=== PATIENT | female | born 1935 | race Caucasian/White ===

== ENCOUNTER → 2016-09-15 | Outpatient (REF) | payer MEDICARE, OTHER ==
[~2016-09-15] MED LIST: /DULO30CA OR; /DULO30CA PO; /PANT40TA OR; /SUCR1TA OR; ABIL2TAB PO; METO10TA2 OR; METO5TAB2 OR; TRAZ50TA PO
== END | disposition home or self-care (01) ==
LOC: M SFHCLERA 17:22
PROVIDERS: ATTEND Physician Assistant
DX: R32 Unspecified urinary incontinence (principal)
CPT/HCPCS: 81002; 87086; G0463

== ENCOUNTER → 2017-03-09 | Outpatient (REF) | payer MEDICARE, OTHER ==
[2017-03-09 19:08] LABS: MEAN CORPUSCULAR HEMOGLOBIN 29.2 pg (27.0-33.0); MEAN CORPUSCULAR HGB CONC 33.1 g/dl (32.0-36.5); MEAN CORPUSCULAR VOLUME 88.3 fl (80.0-96.0); RED CELL DISTRIBUTION WIDTH 14.6 % (11.5-14.5); WHITE BLOOD COUNT 7.4 K/mm3 (4.0-10.0)
[2017-03-09 20:47] LABS: ALBUMIN 3.4 GM/DL (3.2-5.2); ALBUMIN/GLOBULIN RATIO 1.31 (1.00-1.93); ALKALINE PHOSPHATASE 75 U/L (45-117); ALT/SGPT 17 U/L (12-78); ANION GAP 10 MEQ/L (8-16); AST/SGOT 10 U/L (15-37); BILIRUBIN,TOTAL 0.4 MG/DL (0.2-1.0); BLOOD UREA NITROGEN 12 MG/DL (7-18); CALCIUM LEVEL 8.5 MG/DL (8.8-10.2); CARBON DIOXIDE LEVEL 25 MEQ/L (21-32); CHLORIDE LEVEL 111 MEQ/L (98-107); CREATININE FOR GFR 0.67 MG/DL (0.55-1.02); GLOMERULAR FILTRATION RATE > 60.0 (>32); GLUCOSE, FASTING 78 MG/DL (83-110); POTASSIUM SERUM 3.8 MEQ/L (3.5-5.1); SODIUM LEVEL 146 MEQ/L (136-145)
== END ==
LOC: M SFHCLERA 15:04
PROVIDERS: ATTEND Family Medicine
DX: R19.7 Diarrhea, unspecified (principal)
CPT/HCPCS: 80053; 85027; G0463

== ENCOUNTER → 2017-03-11 | Outpatient (REF) | payer MEDICARE, OTHER | LOC: M SFHCLERA 11:38 | PROVIDERS: ATTEND Family Medicine | DX: R19.7 Diarrhea, unspecified (principal) ==

== ENCOUNTER → 2017-12-07 | Outpatient (REF) | payer MEDICARE, OTHER ==
[2017-12-07 17:10] LABS: HEMATOCRIT 39.3 % (36.0-47.0); HEMOGLOBIN 12.5 g/dl (12.0-15.5); MEAN CORPUSCULAR HEMOGLOBIN 28.2 pg (27.0-33.0); MEAN CORPUSCULAR HGB CONC 31.8 g/dl (32.0-36.5); MEAN CORPUSCULAR VOLUME 88.7 fl (80.0-96.0); PLATELET COUNT, AUTOMATED 279 10^3/uL (150-450); RED BLOOD COUNT 4.43 10^6/uL (4.00-5.40); RED CELL DISTRIBUTION WIDTH 15.7 % (11.5-14.5)
[2017-12-07 17:49] LABS: TOTAL 25(OH) VITAMIN D 32.1 NG/ML (30.0-100.0)
[2017-12-07 17:52] LABS: ALBUMIN 3.7 GM/DL (3.2-5.2); ALBUMIN/GLOBULIN RATIO 1.12 (1.00-1.93); ALKALINE PHOSPHATASE 71 U/L (45-117); ALT/SGPT 11 U/L (12-78); ANION GAP 7 MEQ/L (8-16); AST/SGOT 9 U/L (7-37); BILIRUBIN,TOTAL 0.5 MG/DL (0.2-1.0); BLOOD UREA NITROGEN 23 MG/DL (7-18); CALCIUM LEVEL 8.8 MG/DL (8.8-10.2); CARBON DIOXIDE LEVEL 27 MEQ/L (21-32); CHLORIDE LEVEL 108 MEQ/L (98-107); CREATININE FOR GFR 0.93 MG/DL (0.55-1.30); GLOMERULAR FILTRATION RATE > 60.0 (>32); GLUCOSE, FASTING 94 MG/DL (70-100); POTASSIUM SERUM 4.5 MEQ/L (3.5-5.1); SODIUM LEVEL 142 MEQ/L (136-145)
== END ==
LOC: M SFHCLERA 14:08
DX: R06.09 Other forms of dyspnea (principal); E55.9 Vitamin D deficiency, unspecified; Z79.899 Other long term (current) drug therapy
CPT/HCPCS: 84443

== ENCOUNTER 2018-01-26 11:10 | Day surgery (SDC) | payer MEDICARE, OTHER ==
[~2018-01-26 11:10] MED LIST changes: -/DULO30CA OR; -/DULO30CA PO; -/PANT40TA OR; -/SUCR1TA OR; -ABIL2TAB PO; +LIDOCAINE 2% INJ 100 MG/5 ML SDV (FOR ANES.) As Ordered; -METO10TA2 OR; -METO5TAB2 OR; +PROPOFOL 200 MG/20 ML VIAL As Ordered; -TRAZ50TA PO
[2018-01-26] MEDS: NS 1,000 ML IV (11:30)
== END 2018-01-26 13:23 | disposition home or self-care (01) ==
LOC: M OPP 11:10
DX: R19.7 Diarrhea, unspecified (principal); K64.0 First degree hemorrhoids; K57.30 Diverticulosis of large intestine without perforation or abscess without bleeding; M19.90 Unspecified osteoarthritis, unspecified site; K44.9 Diaphragmatic hernia without obstruction or gangrene; F41.9 Anxiety disorder, unspecified; F32.9 Major depressive disorder, single episode, unspecified; Z96.659 Presence of unspecified artificial knee joint; Z88.8 Allergy status to other drugs, medicaments and biological substances; Z88.5 Allergy status to narcotic agent; Z79.82 Long term (current) use of aspirin; Z79.899 Other long term (current) drug therapy
CPT/HCPCS: 45380

== ENCOUNTER → 2018-02-11 | Outpatient (REF) | payer MEDICARE, OTHER ==
[2018-02-11 16:46] LABS: LUTEINIZING HORMONE 34.2 mIU/mL; PROLACTIN 5.5 NG/ML
[2018-02-11 16:47] LABS: FOLLICLE STIMULATING HORMONE 110.2 mIU/mL
[2018-02-11 16:58] LABS: ANION GAP 9 MEQ/L (8-16); BLOOD UREA NITROGEN 18 MG/DL (7-18); CALCIUM LEVEL 8.3 MG/DL (8.8-10.2); CARBON DIOXIDE LEVEL 27 MEQ/L (21-32); CHLORIDE LEVEL 109 MEQ/L (98-107); CREATININE FOR GFR 0.91 MG/DL (0.55-1.30); FREE T4 1.04 NG/DL (0.76-1.46); GLOMERULAR FILTRATION RATE > 60.0 (>32); GLUCOSE, FASTING 95 MG/DL (70-100); POTASSIUM SERUM 4.2 MEQ/L (3.5-5.1); SODIUM LEVEL 145 MEQ/L (136-145)
[2018-02-16 12:01] LABS: SOMATOMEDIN-C INSULIN GROWTH 84 ng/mL (34-172)
== END ==
LOC: M SFHCLERA 11:24
DX: E23.7 Disorder of pituitary gland, unspecified (principal); R42 Dizziness and giddiness; R26.2 Difficulty in walking, not elsewhere classified; R53.1 Weakness
CPT/HCPCS: 83001

== ENCOUNTER → 2018-02-21 | Outpatient (REF) | payer MEDICARE, OTHER ==
[2018-02-21 13:21] LABS: CREATININE, URINE 71.2 MG/DL
[2018-02-21 13:34] LABS: CREATININE 24 HOUR, URINE 498.4 MG/24HR (600-1800); TOTAL VOLUME, URINE 700 ML
[2018-02-26 08:06] LABS: FREE CORTISOL 24HR URINE 32 ug/24 hr (0-50); FREE CORTISOL URINE 45 ug/L (Undefined)
== END ==
LOC: M SFHCLERA 11:15
DX: E23.7 Disorder of pituitary gland, unspecified (principal)
CPT/HCPCS: 81050

== ENCOUNTER → 2018-03-15 | Outpatient (REF) | payer MEDICARE, OTHER ==
[2018-03-15 14:09] LABS: BASO # 0.1 10^3/uL (0.0-0.2); BASO % 0.6 % (0.0-1.0); EOS # 0.1 10^3/uL (0.0-0.50); EOS % 1.1 % (0.0-3.0); HEMATOCRIT 39.8 % (36.0-47.0); HEMOGLOBIN 12.8 g/dl (12.0-15.5); IMMATURE GRANULOCYTE % 0.4 % (0-3.0); LYMPH # 1.3 10^3/uL (1.5-4.5); LYMPH % 15.5 % (24.0-44.0); MEAN CORPUSCULAR HEMOGLOBIN 29.6 pg (27.0-33.0); MEAN CORPUSCULAR HGB CONC 32.2 g/dl (32.0-36.5); MEAN CORPUSCULAR VOLUME 91.9 fl (80.0-96.0); MONO # 0.5 10^3/uL (0.0-0.8); MONO % 5.9 % (0.0-5.0); NEUTROPHILS # 6.4 10^3/uL (1.8-7.7); NEUTROPHILS % 76.5 % (36.0-66.0); PLATELET COUNT, AUTOMATED 268 10^3/uL (150-450); RED BLOOD COUNT 4.33 10^6/uL (4.00-5.40); RED CELL DISTRIBUTION WIDTH 14.6 % (11.5-14.5); WHITE BLOOD COUNT 8.3 10^3/uL (4.0-10.0)
[2018-03-15 14:16] LABS: ANION GAP 4 MEQ/L (8-16); BLOOD UREA NITROGEN 22 MG/DL (7-18); CALCIUM LEVEL 8.7 MG/DL (8.8-10.2); CARBON DIOXIDE LEVEL 31 MEQ/L (21-32); CHLORIDE LEVEL 107 MEQ/L (98-107); CREATININE FOR GFR 0.94 MG/DL (0.55-1.30); GLOMERULAR FILTRATION RATE > 60.0 (>32); GLUCOSE, FASTING 87 MG/DL (70-100); POTASSIUM SERUM 4.3 MEQ/L (3.5-5.1); SODIUM LEVEL 142 MEQ/L (136-145)
[2018-03-15 14:26] LABS: INR 1.07
[2018-03-15 14:27] LABS: PARTIAL THROMBOPLASTIN TIME 33.2 SECONDS (25.4-37.6)
[2018-03-15 14:35] LABS: TOTAL PROTEIN,RANDOM URINE 24.3 MG/DL (0.0-12.0)
== END ==
LOC: M SFHCLERA 11:18
DX: Z01.818 Encounter for other preprocedural examination (principal); R80.9 Proteinuria, unspecified; L08.9 Local infection of the skin and subcutaneous tissue, unspecified; Z79.82 Long term (current) use of aspirin; Z79.899 Other long term (current) drug therapy; D49.1 Neoplasm of unspecified behavior of respiratory system
CPT/HCPCS: 82570

== ENCOUNTER 2018-03-18 15:21 | Emergency (ER) | payer OTHER, MEDICARE, SELFPAY ==
[2018-03-18 18:50] LABS: KETONE, URINE AUTO RFX NEGATIVE (NEGATIVE); MUCUS, URINE RFX SMALL (NEGATIVE); NITRITE, URINE AUTO RFX NEGATIVE (NEGATIVE); RBC, URINE AUTO RFX 5 /HPF (0-3); SPECIFIC GRAVITY UR AUTO RFX 1.015 (1.002-1.035); SQUAM EPITHELIAL CELL UR AURFX 0 /HPF (0-6)
[2018-03-18 18:51] LABS: LEUKOCYTE ESTERASE UR AUTO RFX 3+ (NEGATIVE); WBC, URINE AUTO RFX 33 /HPF (0-3)
== END 2018-03-18 19:09 | disposition home or self-care (01) ==
LOC: M ED 15:21
DX: N30.00 Acute cystitis without hematuria (principal); I10 Essential (primary) hypertension; F41.9 Anxiety disorder, unspecified; F32.9 Major depressive disorder, single episode, unspecified; Z87.440 Personal history of urinary (tract) infections; Z88.5 Allergy status to narcotic agent; Z88.8 Allergy status to other drugs, medicaments and biological substances; Z79.899 Other long term (current) drug therapy
CPT/HCPCS: 81001

== ENCOUNTER → 2018-05-24 | Outpatient (REF) | payer MEDICARE, OTHER ==
[2018-05-25 12:31] LABS: CREATININE FOR GFR 0.97 MG/DL (0.55-1.30); GLOMERULAR FILTRATION RATE 58.5 (>32)
[2018-05-25 12:31] LABS: BLOOD UREA NITROGEN 23 MG/DL (7-18)
== END ==
LOC: M LAB REF 11:52
DX: D3A.8 Other benign neuroendocrine tumors (principal)
CPT/HCPCS: 82565

== ENCOUNTER → 2018-06-21 | Outpatient (CLI) | payer MEDICARE, OTHER | LOC: M LRY 12:32 | DX: K44.9 Diaphragmatic hernia without obstruction or gangrene (principal); R09.89 Other specified symptoms and signs involving the circulatory and respiratory systems; M85.88 Other specified disorders of bone density and structure, other site | CPT/HCPCS: 71046; G0463 ==

== ENCOUNTER → 2018-06-27 | Outpatient (CLI) | payer MEDICARE, OTHER ==
[2018-06-27 12:52] LABS: ANION GAP 8 MEQ/L (8-16); BLOOD UREA NITROGEN 24 MG/DL (7-18); CALCIUM LEVEL 8.9 MG/DL (8.8-10.2); CARBON DIOXIDE LEVEL 28 MEQ/L (21-32); CHLORIDE LEVEL 104 MEQ/L (98-107); CORTISOL AM 17.3 UG/DL (4.3-22.4); CREATININE FOR GFR 0.95 MG/DL (0.55-1.30); FREE T4 0.86 NG/DL (0.76-1.46); GLUCOSE, FASTING 92 MG/DL (70-100); POTASSIUM SERUM 4.4 MEQ/L (3.5-5.1); PROLACTIN 8.8 NG/ML; SODIUM LEVEL 140 MEQ/L (136-145)
[2018-06-29 00:50] LABS: ADRENOCORTICOTROPHIC HORMONE 10.4 pg/mL (7.2-63.3)
== END ==
LOC: M LRY 09:12
DX: D49.7 Neoplasm of unspecified behavior of endocrine glands and other parts of nervous system (principal)
CPT/HCPCS: 84146

== ENCOUNTER → 2018-07-14 | Outpatient (CLI) | payer MEDICARE, OTHER | LOC: M CARPUL 11:21 | DX: I49.1 Atrial premature depolarization (principal); R00.9 Unspecified abnormalities of heart beat | CPT/HCPCS: 93306 ==

== ENCOUNTER → 2018-11-03 | Outpatient (CLI) | payer MEDICARE, OTHER ==
[~2018-11-03] MED LIST changes: +ABIL2TAB PO; +ALEN70TA74 PO; +ASPI81TA85 PO; +BENZ-52 PO; +CRES10TA PO; +CYMB1CAP5 OR; +CYMB1CAP5 PO; +CYMB60CA3 PO; +FLOM0.4C39 PO; +FOLITAB2 PO; +LEVO25TA5 PO; -LIDOCAINE 2% INJ 100 MG/5 ML SDV (FOR ANES.) As Ordered; +LOSA50TA88 PO; +METO10TA2 OR; +METO5TAB2 OR; +MYRB50TA PO; +NAME5TAB13 PO; +NEUR300C PO; +NEXI40CA PO; -PROPOFOL 200 MG/20 ML VIAL As Ordered; +PROT1TAB2 OR; +SUCR1TAB56 OR; +TRAZ50TA PO; +VITA500046 PO
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
== END ==
LOC: M LRY 11:59
PROVIDERS: ATTEND Family Medicine
DX: M81.8 Other osteoporosis without current pathological fracture (principal); S62.101S Fracture of unspecified carpal bone, right wrist, sequela
CPT/HCPCS: 73110; G0463

== ENCOUNTER → 2018-11-30 | Outpatient (REF) | payer MEDICARE, OTHER ==
[2018-11-30 18:53] LABS: BLOOD UREA NITROGEN 25 MG/DL (7-18); CALCIUM LEVEL 8.5 MG/DL (8.8-10.2); CARBON DIOXIDE LEVEL 31 MEQ/L (21-32); CHLORIDE LEVEL 108 MEQ/L (98-107); CHOLESTEROL LEVEL 165 MG/DL (<200); CREATININE FOR GFR 0.85 MG/DL (0.55-1.30); GLOMERULAR FILTRATION RATE > 60.0 (>32); GLUCOSE, FASTING 74 MG/DL (70-100); HDL CHOLESTEROL 60 MG/DL (>40); LDL CHOLESTEROL 87 MG/DL (<100); NON-HDL-C 105 MG/DL; POTASSIUM SERUM 4.6 MEQ/L (3.5-5.1); SODIUM LEVEL 141 MEQ/L (136-145); TRIGLYCERIDES LEVEL 92 MG/DL (<150)
[2018-11-30 18:54] LABS: TOTAL 25(OH) VITAMIN D 40.3 NG/ML (30.0-100.0)
[2018-11-30 19:42] LABS: HEMATOCRIT 38.1 % (36.0-47.0); HEMOGLOBIN 11.8 g/dl (12.0-15.5); MEAN CORPUSCULAR VOLUME 93.6 fl (80.0-96.0); PLATELET COUNT, AUTOMATED 241 10^3/uL (150-450); RED BLOOD COUNT 4.07 10^6/uL (4.00-5.40); WHITE BLOOD COUNT 7.2 10^3/uL (4.0-10.0)
== END ==
LOC: M SFHCLERA 10:59
PROVIDERS: ATTEND Family Medicine
DX: E78.2 Mixed hyperlipidemia (principal); F41.8 Other specified anxiety disorders; E55.9 Vitamin D deficiency, unspecified

== ENCOUNTER → 2019-03-28 | Outpatient (CLI) | payer MEDICARE, OTHER ==
[2019-03-28 16:52] LABS: BLOOD UREA NITROGEN 17 MG/DL (7-18); CREATININE FOR GFR 0.87 MG/DL (0.55-1.30); GLOMERULAR FILTRATION RATE > 60.0 (>32)
== END ==
LOC: M LRY 13:50
PROVIDERS: ATTEND Neurological Surgery
DX: Z48.3 Aftercare following surgery for neoplasm (principal)

== ENCOUNTER → 2019-06-21 | Outpatient (REF) | payer MEDICARE, OTHER ==
[2019-06-21 20:26] LABS: ALBUMIN 3.5 GM/DL (3.2-5.2); ALT/SGPT 15 U/L (12-78); BILIRUBIN,TOTAL 0.5 MG/DL (0.2-1.0); BLOOD UREA NITROGEN 19 MG/DL (7-18); CALCIUM LEVEL 8.4 MG/DL (8.8-10.2); CARBON DIOXIDE LEVEL 29 MEQ/L (21-32); CHLORIDE LEVEL 106 MEQ/L (98-107); CREATININE FOR GFR 0.91 MG/DL (0.55-1.30); GLOMERULAR FILTRATION RATE > 60.0 (>32); GLUCOSE, FASTING 88 MG/DL (70-100); POTASSIUM SERUM 4.1 MEQ/L (3.5-5.1); SODIUM LEVEL 141 MEQ/L (136-145); TOTAL PROTEIN 6.3 GM/DL (6.4-8.2)
[2019-06-21 20:28] LABS: BASO % 0.6 % (0.0-1.0); EOS # 0.1 10^3/uL (0.0-0.5); EOS % 1.7 % (0.0-3.0); HEMOGLOBIN 11.6 g/dl (12.0-15.5); LYMPH # 1.5 10^3/uL (1.5-5.0); LYMPH % 23.3 % (24.0-44.0); MEAN CORPUSCULAR HEMOGLOBIN 29.7 pg (27.0-33.0); MEAN CORPUSCULAR HGB CONC 30.5 g/dl (32.0-36.5); MEAN CORPUSCULAR VOLUME 97.2 fl (80.0-96.0); MONO # 0.6 10^3/uL (0.0-0.8); MONO % 8.3 % (0.0-5.0); NEUTROPHILS # 4.4 10^3/uL (1.5-8.5); NEUTROPHILS % 65.8 % (36.0-66.0); PLATELET COUNT, AUTOMATED 235 10^3/uL (150-450); RED BLOOD COUNT 3.91 10^6/uL (4.00-5.40); WHITE BLOOD COUNT 6.6 10^3/uL (4.0-10.0)
== END ==
LOC: M SFHCLERA 15:05
PROVIDERS: ATTEND Family Medicine
DX: F41.8 Other specified anxiety disorders (principal); K13.0 Diseases of lips
CPT/HCPCS: 80053; 85025; G0463

== ENCOUNTER → 2020-04-16 | Outpatient (REF) | payer MEDICARE, OTHER ==
[~2020-04-16] MED LIST changes: -ASPI81TA85 PO; +ASPI81TA86 PO
[2020-04-16 17:08] LABS: HEMATOCRIT 38.4 % (36.0-47.0); HEMOGLOBIN 11.9 g/dl (12.0-15.5); MEAN CORPUSCULAR HEMOGLOBIN 28.3 pg (27.0-33.0); MEAN CORPUSCULAR VOLUME 91.4 fl (80.0-96.0); PLATELET COUNT, AUTOMATED 288 10^3/uL (150-450); WHITE BLOOD COUNT 8.4 10^3/uL (4.0-10.0)
[2020-04-16 17:10] LABS: BLOOD UREA NITROGEN 17 MG/DL (7-18); CALCIUM LEVEL 8.9 MG/DL (8.8-10.2); CARBON DIOXIDE LEVEL 29 MEQ/L (21-32); CHLORIDE LEVEL 106 MEQ/L (98-107); CREATININE FOR GFR 0.89 MG/DL (0.55-1.30); GLOMERULAR FILTRATION RATE > 60.0 (>32); GLUCOSE, FASTING 101 MG/DL (70-100); POTASSIUM SERUM 4.3 MEQ/L (3.5-5.1); SODIUM LEVEL 141 MEQ/L (136-145)
[2020-04-17 09:22] LABS: TOTAL 25(OH) VITAMIN D 49.8 NG/ML (30.0-100.0)
== END ==
LOC: M SFHCCLAY 15:50
PROVIDERS: ATTEND Family Medicine
DX: E55.9 Vitamin D deficiency, unspecified (principal); E83.51 Hypocalcemia; D64.9 Anemia, unspecified

== ENCOUNTER → 2020-12-24 | Outpatient (REF) | payer MEDICARE, OTHER ==
[~2020-12-24] MED LIST changes: -ALEN70TA74 PO; +ALEN70TA82 PO
[2020-12-24 16:35] LABS: HEMATOCRIT 35.7 % (36.0-47.0); HEMOGLOBIN 10.8 g/dl (12.0-15.5); MEAN CORPUSCULAR HEMOGLOBIN 27.4 pg (27.0-33.0); MEAN CORPUSCULAR HGB CONC 30.3 g/dl (32.0-36.5); MEAN CORPUSCULAR VOLUME 90.6 fl (80.0-96.0); PLATELET COUNT, AUTOMATED 284 10^3/uL (150-450); RED BLOOD COUNT 3.94 10^6/uL (4.00-5.40); WHITE BLOOD COUNT 7.1 10^3/uL (4.0-10.0)
[2020-12-24 17:08] LABS: ALBUMIN 3.6 GM/DL (3.2-5.2); ALT/SGPT 14 U/L (12-78); BILIRUBIN,TOTAL 0.5 MG/DL (0.2-1.0); BLOOD UREA NITROGEN 19 MG/DL (7-18); CALCIUM LEVEL 8.8 MG/DL (8.8-10.2); CARBON DIOXIDE LEVEL 28 MEQ/L (21-32); CHLORIDE LEVEL 106 MEQ/L (98-107); CREATININE FOR GFR 0.77 MG/DL (0.55-1.30); FREE T4 0.98 NG/DL (0.76-1.46); GLOMERULAR FILTRATION RATE > 60.0 (>32); GLUCOSE, FASTING 87 MG/DL (70-100); NT-PRO BNP 318 PG/ML (<450); POTASSIUM SERUM 4.3 MEQ/L (3.5-5.1); SODIUM LEVEL 139 MEQ/L (136-145); TOTAL PROTEIN 6.4 GM/DL (6.4-8.2)
== END ==
LOC: M SFHCCLAY 10:49
PROVIDERS: ATTEND Family Medicine
DX: R29.6 Repeated falls (principal); R60.0 Localized edema; R53.83 Other fatigue
CPT/HCPCS: 80053; 83880; 84439; 84443; 85027; 93005; G0463

== ENCOUNTER → 2021-01-03 | Outpatient (REF) | payer MEDICARE, OTHER ==
[2021-01-03 17:43] LABS: CHOLESTEROL LEVEL 166 MG/DL (<200); CHOLESTEROL RISK RATIO 2.515 (<5); HDL CHOLESTEROL 66 MG/DL (>40); IRON (FE) 48 UG/DL (50-170); LDL CHOLESTEROL 84 MG/DL (<100); NON-HDL-C 100 MG/DL; PERCENT SATURATION 13.2 % (13.2-45.0); TOTAL IRON BINDING CAPACITY 363 UG/DL (250-450); TRIGLYCERIDES LEVEL 82 MG/DL (<150)
[2021-01-03 18:24] LABS: VITAMIN B12 LEVEL 270 PG/ML
[2021-01-03 18:32] LABS: FOLATE > 24.0 NG/ML
== END ==
LOC: M SFHCCLAY 08:50
PROVIDERS: ATTEND Family Medicine
DX: D64.9 Anemia, unspecified (principal); E78.2 Mixed hyperlipidemia

== ENCOUNTER → 2021-01-10 | Outpatient (CLI) | payer MEDICARE, OTHER ==
--- NOTE | 2021-01-13 10:40 | ECHO ---
ECHOCARDIOGRAM DATE OF PROCEDURE: 01/10/2021 Age: 85 Gender: Height: Weight: REFERRING PROVIDER: Dr. Earlene Mtz. PATIENT LOCATION: Outpatient. REASON FOR THE TESTING: Shortness of breath. 2D MEASUREMENTS: IVS 1.2 cm LV 5.3 cm LVPW 1.2 cm LA 2.6 cm Aorta 3.4 cm IVC 1.8 cm DOPPLER MEASUREMENT Peak velocity across the aortic valve 1.4 m/s Peak velocity across the LVOT 1.75 m/s Mitral E 0.89 Mitral A 1.0 with a ratio of 0.9 Maximum tricuspid valve velocity 2.4 m/s 2D COMMENTS: 1. Normal left ventricular size, wall thickness, and normal global left ventricular systolic function. The estimated left ventricular systolic ejection fraction is 60 to 65%. 2. Normal left atrium. Normal right atrium and right ventricle. 3. The atrial septum appeared to be normal without evidence of defect or shunt. 4. Normal aortic root. 5. No pericardial effusion seen. 6. Mildly calcified (cut out) mitral valve with calcified mitral annulus with normal appearing mitral valve leaflet motion. Normal tricuspid valve. The pulmonic valve and proximal pulmonary artery branches were not well visualized. 7. The inferior vena cava was borderline enlarged. DOPPLER: It detects mild aortic regurgitation, mild mitral regurgitation and mild tricuspid regurgitation. The calculated (cut out). Abnormal relaxation pattern was noted across the mitral valve leaflets as well as the mitral valve annulus consistent with features of grade 1 left ventricular diastolic dysfunction. IMPRESSION: 1. Normal global left ventricular systolic function. There were some features of grade 1 left ventricular diastolic dysfunction manifested by abnormal relaxation. 2. Aortic valve sclerosis with mild aortic regurgitation but no aortic stenosis. 3. Mitral annulus calcification with mild mitral regurgitation. 4. Mild tricuspid regurgitation with mild pulmonary hypertension.
== END ==
LOC: M CARPUL 13:33
PROVIDERS: ATTEND Family Medicine
DX: R60.0 Localized edema (principal); R06.02 Shortness of breath; I08.3 Combined rheumatic disorders of mitral, aortic and tricuspid valves; I27.20 Pulmonary hypertension, unspecified

== ENCOUNTER → 2021-03-07 | Outpatient (REF) | payer MEDICARE, OTHER | LOC: M SFHCCLAY 10:20 | PROVIDERS: ATTEND Family Medicine | DX: Z20.828 Contact with and (suspected) exposure to other viral communicable diseases (principal); Z11.52 Encounter for screening for COVID-19 ==

== ENCOUNTER → 2021-06-03 | Outpatient (CLI) | payer MEDICARE, OTHER ==
[~2021-06-03] MED LIST changes: -CYMB60CA3 PO; +CYMB60CA4 PO
--- NOTE | 2021-06-03 20:15 | REP ---
INDICATION: RIGHT ANTERIOR SHOULDER PAIN. COMPARISON: Chest 06/21/2018 TECHNIQUE: Three views FINDINGS: AC joint arthritis with sclerosis and narrowing at the joint space with inferior spurring. The bones are demineralized. Glenohumeral joint arthritis also noted without subluxation or dislocation. Subchondral cysts greater tuberosity humeral head. No visible fracture about the shoulder or ribs. IMPRESSION: AC and glenohumeral joint arthritis moderately severe. No fracture, subluxation or abnormal soft tissue calcification. Bones are demineralized. <Electronically signed by Miguel Dolan > 06/03/212011
== END ==
LOC: M CLY 15:04
PROVIDERS: ATTEND Family Medicine
DX: M19.011 Primary osteoarthritis, right shoulder (principal); M25.511 Pain in right shoulder
CPT/HCPCS: 73030; G0463

== ENCOUNTER 2021-07-01 23:43 | Inpatient (IN) | payer MEDICARE, OTHER ==
[~2021-07-01] VITALS: Ht 160 cm; Wt 70.0 kg
[2021-07-02] MEDS ORDERED: ACETAMINOPHEN 500 MG TAB PO ONE (00:40)
[2021-07-02] MEDS ORDERED: NS 1,000 ML IV ONE (00:40)
[2021-07-02 01:08] LABS: ABG BASE EXCESS -0.8 (-2.0-2.0); ABG HCO3 22.2 MEQ/L (22.0-26.0); ABG PARTIAL PRESSURE CO2 31.4 mmHg (35.0-45.0); ABG PARTIAL PRESSURE O2 61.4 mmHg (75.0-100.0); ABG STANDARD HCO3 23.7 MEQ/L (22.0-26.0); ABG TOTAL CO2 23.2 MEQ/L (23.0-31.0); ABG pH (ARTERIAL) 7.468 UNITS (7.350-7.450)
[2021-07-02] MEDS ORDERED: PIPERACILLIN/TAZOBACTAM SOD 3.375 GM in D5W MINI-BAG PLUS 50 ML IV ONE (01:20)
[2021-07-02 01:21] LABS: HEMATOCRIT 32.6 % (36.0-47.0); HEMOGLOBIN 10.3 g/dl (12.0-15.5); LYMPH # 0.4 10^3/uL (1.5-5.0); MEAN CORPUSCULAR HEMOGLOBIN 27.2 pg (27.0-33.0); MEAN CORPUSCULAR HGB CONC 31.6 g/dl (32.0-36.5); MEAN CORPUSCULAR VOLUME 86.2 fl (80.0-96.0); MONO # 0.2 10^3/uL (0.0-0.8); MONO % 6.3 % (2.0-8.0); NEUTROPHILS # 2.7 10^3/uL (1.5-8.5); NEUTROPHILS % 80.4 % (36.0-66.0); PLATELET COUNT, AUTOMATED 146 10^3/uL (150-450); RED BLOOD COUNT 3.78 10^6/uL (4.00-5.40); WHITE BLOOD COUNT 3.3 10^3/uL (4.0-10.0)
--- NOTE | 2021-07-02 01:25 | REPVR ---
PROCEDURE INFORMATION: Exam: XR Chest Exam date and time: 07/02/2021 12:09 AM Age: 86 years old Clinical indication: Other: Covid workup; Additional info: Coronavirus workup TECHNIQUE: Imaging protocol: XR of the chest. Views: 1 view. COMPARISON: CR CHEST 2 VIEW 06/21/2018 12:37 PM FINDINGS: Lungs: Patchy basilar and subpleural opacities in both lungs. No masses are seen. Pleural spaces: No pleural effusion or pneumothorax. Heart/Mediastinum: Mild cardiomegaly. There is a small hiatal hernia. Bones/joints: Skeletal degenerative changes are noted. IMPRESSION: 1. Patchy the bilateral pulmonary opacities, worse on the right. 2. Cardiomegaly. 3. Small hiatal hernia. Electronically signed by: Rojas Muñoz On 07/02/2021 01:25:08 AM
[2021-07-02 01:49] LABS: ALBUMIN 2.9 GM/DL (3.2-5.2); ALT/SGPT 15 U/L (12-78); BILIRUBIN,TOTAL 0.4 MG/DL (0.2-1.0); BLOOD UREA NITROGEN 15 MG/DL (7-18); C REACTIVE PROTEIN QUANTITATIV 3.96 MG/DL (0.00-0.30); CALCIUM LEVEL 7.4 MG/DL (8.8-10.2); CARBON DIOXIDE LEVEL 27 MEQ/L (21-32); CHLORIDE LEVEL 104 MEQ/L (98-107); FERRITIN 103 NG/ML (8-252); GLOMERULAR FILTRATION RATE > 60.0 (>32); GLUCOSE, FASTING 106 MG/DL (70-100); LDH LACTATE DEHYDROGENASE 270 U/L (84-246); MAGNESIUM LEVEL 1.8 MG/DL (1.8-2.4); POTASSIUM SERUM 3.2 MEQ/L (3.5-5.1); SODIUM LEVEL 138 MEQ/L (136-145); TOTAL PROTEIN 6.2 GM/DL (6.4-8.2)
[2021-07-02 01:58] LABS: INR 1.1; PROTHROMBIN TIME 14.7 SECONDS (12.7-14.5)
[2021-07-02 02:03] LABS: D-DIMER QUANT 1407.8 ng/ml (<500)
[2021-07-02] MEDS ORDERED: ISOVUE-370 76% 100ML VIAL As Ordered ONE (03:06)
[2021-07-02 03:17] LABS: NT-PRO BNP 1431 PG/ML (<450)
[2021-07-02] MEDS ORDERED: MOM 30ML SUSPENSION UDC PO PRN (03:45)
[2021-07-02] MEDS ORDERED: ACETAMINOPHEN TAB 650MG DOSE (2X325MG) PO PRN (03:45)
--- NOTE | 2021-07-02 04:00 | HPEPDOC ---
[facility] [place] Medical History & Physical Date of Admission Jul 02, 2021 Date of Service: Jul 02, 2021 History and Physical CHIEF COMPLAINT: weakness HISTORY OF PRESENT ILLNESS: 86-year-old female history of hypo-thyroidism, hyperlipidemia, who presented to our emergency department because of progressive weakness over the past 1 week. Patient was seen at an outside hospital yesterday and tested positive for Covid and was sent home. Patient's weakness worsened prompting her to come back to the emergency department. Patient endorses that she's been having shortness of breath on exertion but not at rest. She has a mild cough. She denies a fever. Denies nausea or vomiting. She does endorse intermittent diarrhea for the past s everal days. She states her appetite has been significantly decreased over the past week and she hasn't been eating or drinking much. She states her weakness is gone so that she can barely stand up on her own now. She lives by herself and uses a cane for ambulation. She endorses being unvaccinated and in retrospect she wishes she had gotten the vaccine. In the emergency department patient was found to be hypoxic at rest dipping just below 90% requiring supplemental oxygen she was placed on 2 L of oxygen by nasal cannula and improved to 94%. CT chest angiogram was ordered and is pending. Chest x-ray impressions shows patchy bilateral pulmonary opacities worse on the right. Patient was started on IV antibiotics with Zosyn for presumed superimposed bacterial pneumonia infection. Cultures were drawn. Patient will be admitted to the medical service for further medical management. PAST MEDICAL/SURGICAL HISTORY: From last clinic note as patient denies having medical problems other than low b lood pressure; Hypothyroidism Depression Thoracic aortic aneurysm GERD Anemia Osteoarthritis Chronic hypotension - although home medications patient is on losartan presumably for hypertension Mixed incontinence Hypomagnesemia Chronic collagenous colitis Pulmonary nodules per clinic notes evaluated biopsy with no further evaluation needed Appendectomy Left oophorectomy Bilateral knee replacement surgery Left shoulder surgery SOCIAL HISTORY: Denies alcohol use Denies tobacco use Denies illicit drug use Lives at home alone and uses a cane to ambulate tells me that once she leaves the hospital she will live with her daughter for a few days until she recovers FAMILY HISTORY: Reviewed and none contributory to this admission. She denies any sick contacts with Covid currently. ALLERGIES: Please see below. REVIEW OF SYSTEMS: 10 point review of systems complete all negative otherwise stated in HPI Neurological: No weakness. HOME MEDICATIONS: Please see below. PHYSICAL EXAMINATION: Constitutional: Awake and alert, in no apparent distress ENT: Sclera are clear. Mucosa is dry Respiratory: Lungs diminished breath sounds bilaterally. No use of accessory muscles. Able to speak to me in full sentences without becoming short of breath. Saturating at 92% on 2 L of oxygen by nasal cannula. Cardiovascular: RRR S1 and S2 are normal Gastrointestinal: Abdomen is soft, non distended, non tender, BS present. Musculoskeletal: No lower extremity edema. Neurologic: No focal neurological deficit. Mental Status: A&O x3, normal affect Skin: Warm, dry LABORATORY DATA: See below. IMAGING: See chart MICROBIOLOGY: Please see below. ASSESSMENT/PLAN 86-year-old female presents to the 1 week of progressively worsening weakness and poor appetite found to have COVID 19 infection with hypoxia requiring supplemental oxygen with possible bacterial superimposed infection. Admitted for medical workup and management. # Shortness of breath 2/2 Covid 19 infection with possible superimposed bacterial pneumonia: - Has multiple risk factors for poor outcomes with Covid 19 infection such as being overweight (BMI 27 in clinic). - Initial inflammatory markers elevated. Trend inflammatory markers. IV Decadron daily. Started rimdasivir. Lovenox. O2 target 90% or better. PT. - Possible superimposed bacterial pneumonia. Started IV ceftriaxone and doxycycline Follow blood cultures. follow-up pro-calcitonin if negative can DC Abx. - AM team to Fu CT chest angio ordered by the ED which is still pending # Dehydration: poor oral intake. IVFs. F/u UA ordered by the ED. # Hypokalemia: Replace. Monitor. Follow-up mag level. mag # Hypothyroidism: resume Synthroid once Medrec is complete # Hyperlipidemia: Continue home Crestor once Medrec is complete # Impression: Continue home Cymbalta once Medrec is complete # Continue home medications for chronic medical problems once pharmacy is compl eted Medrec which is still pending. # DVT prophylaxis: Lovenox A Y[facility] Hospitalist Vital Signs Vital Signs Date Time Temp Pulse Resp B/P (MAP) Pulse Ox O2 Delivery O2 Flow Rate FiO2 07/02/21 02:15 134/63 (86) 07/02/21 02:14 96 18 95 Nasal Cannula 3.0 07/02/21 01:54 100.9 Laboratory Data Labs 24H Laboratory Tests 2 07/02/21 00:34: Immature Granulocyte % (Auto) 0.3, Neutrophils (%) (Auto) 80.4H, Lymphocytes (%) (Auto) 13.0L, Monocytes (%) (Auto) 6.3, Eosinophils (%) (Auto) 0.0, Basophils (%) (Auto) 0.0, Neutrophils # (Auto) 2.7, Lymphocytes # (Auto) 0.4L, Monocytes # (Auto) 0.2, Eosinophils # (Auto) 0.0, Basophils # (Auto) 0.0, Nucleated Red Blood Cells % (auto) 0.0, Prothrombin Time 14.7H, Prothromb Time International Ratio 1.10, Activated Partial Thromboplast Time 40.0H, Fibrinogen 396, D-Dimer, Quantitative 1407.80H, Anion Gap 7L, Glomerular Filtration Rate > 60.0, Lactic Acid Level 0.9, Calcium Level 7.4L, Magnesium Level 1.8, Ferritin 103, Total Bilirubin 0.4, Aspartate Amino Transf (AST/SGOT) 19, Alanine Aminotransferase (ALT/SGPT) 15, Alkaline Phosphatase 65, Lactate Dehydrogenase 270H, C-Reactive Protein, Quantitative 3.96H, BS-Xql-R-Type Natriuretic Peptide 1431H, Total Protein 6.2L, Albumin 2.9L, Albumin/Globulin Ratio 0.9L 07/02/21 00:44: Blood Gas Bicarbonate Standard 23.7, Arterial Blood pH 7.468H, Arterial Blood Partial Pressure CO2 31.4L, Arterial Blood Partial Pressure O2 61.4L, Arterial Blood Total CO2 23.2, Arterial Blood HCO3 22.2, Arterial Blood Base Excess -0.8, Arterial Blood Oxygen Saturation 91.0L 07/02/21 01:10: POC Troponin I (Misc) 0.02 CBC/BMP Laboratory Tests 07/02/21 00:34 Microbiology Microbiology 07/02/21 Blood Culture, Received Pending 07/02/21 Blood Culture, Received Pending Home Medications Scheduled Alendronate Sodium (Alendronate Sodium) 70 Mg Tab, 70 MG PO Q7D in the morning, at least 30 minutes before the first food, beverage, or medication of the day Duloxetine Hcl (Cymbalta) 60 Mg Cap, 60 MG PO DAILY Gabapentin (Neurontin) 300 Mg Cap, 300 MG PO TID Levothyroxine Sodium (Levothyroxine Sodium) 25 Mcg Tab, 50 MCG PO DAILY Losartan Potassium (Losartan Potassium) 50 Mg Tab, 50 MG PO DAILY Memantine HCl (Namenda) 5 Mg Tab, 1 TAB PO BID Mirabegron (Myrbetriq) 50 Mg Tab, 1 TAB PO DAILY Rosuvastatin Calcium (Crestor) 10 Mg Tab, 10 MG PO DAILY Tamsulosin HCl (Flomax) 0.4 Mg Cap, 1 CAP PO DAILY Allergies Coded Allergies: meperidine (Verified Allergy, Unknown, 07/02/21) morphine (Verified Allergy, Unknown, 07/02/21) propoxyphene (Verified Allergy, Unknown, 07/02/21) JESSICA JEONG MD Jul 02, 2021 04:00
--- NOTE | 2021-07-02 04:35 | REPVR ---
PROCEDURE INFORMATION: Exam: CTA Chest With Contrast Exam date and time: 07/02/2021 4:05 AM Age: 86 years old Clinical indication: Other: Rule out pe, covid+ TECHNIQUE: Imaging protocol: Computed tomographic angiography of the chest with contrast. 3D rendering (Not supervised by radiologist): MIP and/or 3D reconstructed images were created by the technologist. Radiation optimization: All CT scans at this facility use at least one of these dose optimization techniques: automated exposure control; mA and/or kV adjustment per patient size (includes targeted exams where dose is matched to clinical indication); or iterative reconstruction. Contrast material: ISOVUE 370; Contrast volume: 75 ml; Contrast route: INTRAVENOUS (IV); COMPARISON: CR PORTABLE CHEST X-RAY 07/02/2021 12:18 AM FINDINGS: Pulmonary arteries: Normal. No pulmonary emboli. Aorta: Unremarkable. No aortic aneurysm. No aortic dissection. Lungs: Multifocal ground-glass airspace infiltrates in both lungs in a predominantly subpleural distribution. Mild linear interstitial thickening. Airways are clear. Pleural spaces: No pneumothorax. No pleural effusion. Heart: Mild cardiomegaly. No pericardial effusion. Lymph nodes: Unremarkable. No enlarged lymph nodes. Diaphragm: There is a small hiatal hernia. Gallbladder and bile ducts: Incidental calculi in the gallbladder. 7 mm calculus in the cystic duct. No gallbladder wall thickening. Adrenal glands: 3.0 cm circumscribed oval mass in the right adrenal gland with internal density of 4 Hounsfield units. Bones/joints: Unremarkable. No acute fracture. Soft tissues: Unremarkable. IMPRESSION: 1. Multifocal ground-glass pulmonary opacities typical of covid-19 pneumonia. 2. No pulmonary embolism. 3. Cholelithiasis. 7 mm calculus in the cystic duct. No gallbladder wall thickening is seen. Consider gallbladder ultrasound follow-up if there is concern for acute cholecystitis. 4. Incidental right adrenal adenoma. 5. Small hiatal hernia. COMMENTS: Consistent with the [employer]'s Incidental Findings Committee white paper (J Am Jennifer Radiol 2017): Any incidental adrenal lesion less than or equal to 1 cm is likely benign. No follow-up imaging is recommended for these lesions per consensus recommendations based on imaging criteria. Further lab evaluation could be pursued if warranted based on clinical findings. Electronically signed by: Rojas Muñoz On 07/02/2021 04:35:02 AM
[2021-07-02] MEDS: NS 1,000 ML IV SCH ×3 (04:46→23:14)
--- OUTSIDE RECORDS SUMMARY | 2021-07-02 05:08 | CCD ---
Author Author [facility] Organization [facility] Address Unknown Phone Unavailable Care Team Providers Care Jewelry Jobber Name Role Phone Earlene Mtz Unavailable PROBLEMS Type Condition ICD9-CM Code HHG28-LQ Code Onset Dates Condition S tatus W/U Status Risk SNOMED Code Notes Problem Other urinary incontinence N39.498 Active confirmed 806302443 Problem PVD (peripheral vascular disease) I73.9 Active confirmed 256243533 followed by DR. 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 Active confirmed 65562 5007 Problem PAC (premature atrial contraction) I49.1 Activ e confirmed 067274622 Problem Controlled depression F32.9 Active confirmed 28039353 Problem 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 A ctive confirmed 68941580 Problem Chronic diastolic heart failure I50.32 Active confi rmed 128007369 Problem Frequent falls R29.6 Active confirmed 36676 2001 Problem Difficulty walking R26.2 Active confirmed 2 42917822 Problem Microscopic hematuria R31.2 Active confirmed 557818868 followed by [facility] Problem Age-related osteoporosis without current pathological fracture M81.0 Active confirmed 08617580 Problem Chronic GERD K21.9 Active confirmed 2462795 09 Problem Difficulty sleeping G47.9 Active confirmed 060982662 Problem Collagenous colitis K52.831 Active confirmed 32221817 ALLERGIES Allergen (clinical drug ingredient) Drug/Non Drug Allergy do cumented on EMR Reaction Allergy Type Onset Date Status morphine Morphine Sulfate([facility] Code:[address]-73) Nausea/Vomiti ng Drug Allergy Active Darvon Nausea/Vomiting Drug Allergy Active Darvocet-N 50 Nausea/Vomiting Drug Allergy Acti ve codeine Codeine Sulfate([facility] Code:[address]-15) Nausea/Vomiting Dr irma Allergy Active ENCOUNTERS from 1936 to 2021-06-04 Encounter Location Date Provider Diagnosis [facility] Michaela ROYL [phone] [place] [phone] Jun, Earlene Schoenemradha IMMUNIZATIONS Vaccine Route Administration Date Status Pneumococcal Adult 0.5mL Pneumovax 23 IM Intramuscular Jun 14, 018 Administered Pneumococcal 0.5mL Prevnar 13 IM Intramuscular May 06, 2017 A dministered Influenza 6mo & up Fluzone Unknown January 06, 2016 Other s SOCIAL HISTORY Tobacco Use: Social History Observation Description Date Details (start date - stop date) Never Smoker Sex Assigned At : Social History Observation Description Sex Assigned At Unknown Education: Question Answer Notes Level of Education: High School Audit Question Answer Notes Total Score: 0 Interpretation: Alcohol Education Language: Question Answer Notes Languages spoken: Slovenian Buddhist: Question Answer Notes Buddhist 03 Nondenominational Sexual Hx: Question Answer Notes Had sex in the last 12 months (vaginal, oral, or anal)? No Have you ever had an STD? No Drug and Alcohol Question Answer Notes Total Score: 0 Interpretation: No problems reported Tobacco Use: Question Answer Notes Are you a: never smoker REASON FOR REFERRAL No Information VITAL SIGNS No information MEDICATIONS Medication SIG (Take, Route, Frequency, Duration) Notes Start Da te End Date Status traZODone HCl 50 MG 1 tablet at bedtime Orally Once a day for 90 day( s) Active NexIUM 40 mg 1 cap(s) p.o. Once daily for reflux for 90 day(s) Active Vitamin D (Cholecalciferol) 1000 UNIT 1 capsule Orally Once a day Active Walker - as directed for 90 day(s) 4 point walker: Dx: W1 9XXXD, R29.898 November, Active Clotrimazole 1 % 1 application to corners of mouth Externally Twice a day for 30 Days November, Active L-Methylfolate 15 MG 1 tablet Orally Once a day for 90 days Active Depend Pant Large Depends 1 depends to wear every 2-4h rs as needed for incontinence (OTC) Active DULoxetine HCl 60 MG 1 capsule Orally Once a day for 90 day(s) Active PROCEDURES No Information RESULTS No Results REASON FOR VISIT X-ray results MEDICAL (GENERAL) HISTORY Type Description Date Medical History Depression Medical History Thoracic Aortic Aneurysm 3.9cm 04/12, 4.1 cm 03/11, 3.9 cm 02/07 Medical History GERD/HH Medical History Anemia Medical History Edema, echo May 2010 Dr. Cantrell Medical History History of Hematuria - benign cysto w/ u ro Medical History osteoarthritis - knees/shoulders Medical History chronic hypotension Medical History mixed (stress, urge) incontinence Medical History low vitamin d Medical History hypomagnesemia Medical History Chronic collagenous colitis Medical History pulmonary nodules: Evaluated with biopsy, no further evaluation needed Surgical History appendectomy/Left oophorectomy years ago Surgical History left knee surgery Surgical History L shoulder surgery 2010 Surgical History Right TKA x 2 03/2013 Surgical History colonoscopy 01/26/18 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 Surgical History fx right wrist 07/2018 Hospitalization History [facility] Depression Hospitalization History GI Bleed/EGD nml 2009 Hospitalization History Surgicaly related Goals Section No Information Health Concerns No Information MEDICAL EQUIPMENT No Information MENTAL STATUS No Information FUNCTIONAL STATUS No Information ASSESSMENTS No Information PLAN OF TREATMENT Medication Medication Name Sig Start Date Stop Date Clotrimazole 1 % 1 application to corners of mouth Externally Twice a day for 30 Days November, Next Appt Details Provider Name:Earlene Mtz, 2022-01 01:00:00 PM, Pasha THAO, , [place], [phone], Insurance Providers Payer Name Payer Address Payer Phone Insured Name Patient Relati onship to Insured Coverage Start Date Coverage End Date [employer] [address] [facility] [id number] [place] self MEDICARE Part A and B [address] [facility] [id number] EDISON CALDERON self
--- OUTSIDE RECORDS SUMMARY | 2021-07-02 05:14 | CCD ---
Author Author [facility] Organization [facility] Address Unknown Phone Unavailable Care Team Providers Care Dustless Operator Name Role Phone Ramirez, Eb PA Unavailable Unavailable Ramirez, Eb PA Unavailable Unavailable Ramirez, Eb PA Unavailable Unavailable Ramirez, Eb PA Unavailable Unavailable Ramirez, Eb PA Unavailable Unavailable Ramirez, Eb PA Unavailable Unavailable Ramirez, Eb PA Unavailable Unavailable Ramirez, Eb PA Unavailable Unavailable Ramirez, Eb PA Unavailable Unavailable Ramirez, Eb PA Unavailable Unavailable Ramirez, Eb PA Unavailable Unavailable Ramirez, Eb PA Unavailable Unavailable Ramirez, Eb PA Unavailable Unavailable SAGE, W NAYELI Unavailable Unavailable SAGE, W NAYELI Unavailable Unavailable SAGE, W NAYELI Unavailable Unavailable SAGE, W NAYELI Unavailable Unavailable SAGE, W NAYELI Unavailable Unavailable SAGE, W NAYELI Unavailable Unavailable SAGE, W NAYELI Unavailable Unavailable SAGE, W NAYELI Unavailable Unavailable SAGE, W NAYELI Unavailable Unavailable SAGE, W NAYELI Unavailable Unavailable SAGE, W NAYELI Unavailable Unavailable SAGE, W NAYELI Unavailable Unavailable SAGE, W NAYELI Unavailable Unavailable SAGE, W NAYELI Unavailable Unavailable SAGE, W NAYELI Unavailable Unavailable SAGE, W NAYELI Unavailable Unavailable SAGE, W NAYELI Unavailable Unavailable SAGE, W NAYELI Unavailable Unavailable SAGE, W NAYELI Unavailable Unavailable SAGE, W NAYELI Unavailable Unavailable SAGE, W NAYELI Unavailable Unavailable SAGE, W NAYELI Unavailable Unavailable SAGE, W NAYELI Unavailable Unavailable SAGE, W NAYELI Unavailable Unavailable SAGE, W NAYELI Unavailable Unavailable SAGE, W NAYELI Unavailable Unavailable SAGE, W NAYELI Unavailable Unavailable SAGE, W NAYELI Unavailable Unavailable SAGE, W NAYELI Unavailable Unavailable SAGE, W NAYELI Unavailable Unavailable SAGE, W NAYELI Unavailable Unavailable SAGE, W NAYELI Unavailable Unavailable SAGE, W NAYELI Unavailable Unavailable SAGE, W NAYELI Unavailable Unavailable SAGE, W NAYELI Unavailable Unavailable SAGE, W NAYELI Unavailable Unavailable SAGE, W NAYELI Unavailable Unavailable SAGE, W NAYELI Unavailable Unavailable SAGE, W NAYELI Unavailable Unavailable Fortunato Hernandez MD Unavailable Unavailable Fortunato Hernandez MD Unavailable Unavailable Fortunato Hernandez MD Unavailable Unavailable Fortunato Hernandez MD Unavailable Unavailable Fortunato Hernandez MD Unavailable Unavailable Fortunato Hernandez MD Unavailable Unavailable Fortunato Hernandez MD Unavailable Unavailable Fortunato Hernandez MD Unavailable Unavailable Fortunato Hernandez MD Unavailable Unavailable Fortunato Hernandez MD Unavailable Unavailable Fortunato Hernandez MD Unavailable Unavailable Fortunato Hernandez MD Unavailable Unavailable Fortunato Hernandez MD Unavailable Unavailable Fortunato Hernandez MD Unavailable Unavailable Fortunato Hernandez MD Unavailable Unavailable Fortunato Hernandez MD Unavailable Unavailable Fortunato Hernandez MD Unavailable Unavailable Fortunato Hernandez MD Unavailable Unavailable Fortunato Hernandez MD Unavailable Unavailable Fortunato Hernandez MD Unavailable Unavailable Fortunato Hernandez MD Unavailable Unavailable Fortunato Hernandez MD Unavailable Unavailable Fortunato Hernandez MD Unavailable Unavailable Fortunato Hernandez MD Unavailable Unavailable Fortunato Hernandez MD Unavailable Unavailable Fortunato Hernandez MD Unavailable Unavailable Fortunato Hernandez MD Unavailable Unavailable Fortunato Hernandez MD Unavailable Unavailable Fortunato Hernandez MD Unavailable Unavailable Fortunato Hernandez MD Unavailable Unavailable Fortunato Hernandez MD Unavailable Unavailable Fortunato Hernandez MD Unavailable Unavailable Fortunato Hernandez MD Unavailable Unavailable Fortunato Hernandez MD Unavailable Unavailable Fortunato Hernandez MD Unavailable Unavailable Fortunato Hernandez MD Unavailable Unavailable Fortunato Hernandez MD Unavailable Unavailable Fortunato Hernandez MD Unavailable Unavailable Fortunato Hernandez MD Unavailable Unavailable Fortunato Hernandez MD Unavailable Unavailable Fortunato Hernandez MD Unavailable Unavailable Fortunato Hernandez MD Unavailable Unavailable Fortunato Hernandez MD Unavailable Unavailable Fortunato Hernandez MD Unavailable Unavailable Fortunato Hernandez MD Unavailable Unavailable Fortunato Hernandez MD Unavailable Unavailable Fortunato Hernandez MD Unavailable Unavailable Fortunato Hernandez MD Unavailable Unavailable Fortunato Hernandez MD Unavailable Unavailable Fortunato Hernandez MD Unavailable Unavailable Fortunato Hernandez MD Unavailable Unavailable Fortunato Hernandez MD Unavailable Unavailable Fortunato Hernandez MD Unavailable Unavailable Fortunato Hernandez MD Unavailable Unavailable Fortunato Hernandez MD Unavailable Unavailable Fortunato Hernandez MD Unavailable Unavailable Fortunato Hernandez MD Unavailable Unavailable Fortunato Hernandez MD Unavailable Unavailable Fortunato Hernandez MD Unavailable Unavailable Fortunato Hernandez MD Unavailable Unavailable Fortunato Hernandez MD Unavailable Unavailable Schoeneman, Earlene DO Unavailable Unavailable Schoeneman, Earlene DO Unavailable Unavailable Schoeneman, Earlene DO Unavailable Unavailable Schoeneman, [place] DO Unavailable Unavailable Schoeneman, [place] DO Unavailable Unavailable Schoeneman, Earlene DO Unavailable Unavailable Schoeneman, [place] DO Unavailable Unavailable Schoeneman, [place] DO Unavailable Unavailable Schoeneman, Earlene DO Unavailable Unavailable Schoeneman, [place] DO Unavailable Unavailable Schoeneman, [place] DO Unavailable Unavailable Schoeneman, Earlene DO Unavailable Unavailable Schoeneman, Earlene DO Unavailable Unavailable Schoeneman, Earlene DO Unavailable Unavailable Schoeneman, [place] DO Unavailable Unavailable Schoeneman, Earlene DO Unavailable Unavailable Schoeneman, [place] DO Unavailable Unavailable Schoeneman, Earlene DO Unavailable Unavailable Schoeneman, [place] DO Unavailable Unavailable Schoeneman, Earlene DO Unavailable Unavailable Schoeneman, Earlene DO Unavailable Unavailable Schoeneman, [place] DO Unavailable Unavailable Schoeneman, Earlene DO Unavailable Unavailable Schoeneman, Earlene DO Unavailable Unavailable Schoeneman, [place] DO Unavailable Unavailable Schoeneman, Earlene DO Unavailable Unavailable Schoeneman, Earlene DO Unavailable Unavailable Schoeneman, Earlene DO Unavailable Unavailable Schoeneman, [place] DO Unavailable Unavailable Schoeneman, Earlene DO Unavailable Unavailable Schoeneman, Earlene DO Unavailable Unavailable Schoeneman, Earlene DO Unavailable Unavailable Schoeneman, [place] DO Unavailable Unavailable Schoeneman, Earlene DO Unavailable Unavailable Schoeneman, Earlene DO Unavailable Unavailable Schoeneman, [place] DO Unavailable Unavailable Schoeneman, Earlene DO Unavailable Unavailable Schoeneman, [place] DO Unavailable Unavailable Schoeneman, [place] DO Unavailable Unavailable Schoeneman, Earlene DO Unavailable Unavailable Schoeneman, Earlene DO Unavailable Unavailable Schoeneman, [place] DO Unavailable Unavailable Gil Corrigan MD, FACS Unavailable Unavailable Gil Corrigan MD, FACS Unavailable Unavailable Gil Corrigan MD, FACS Unavailable Unavailable Gil Corrigan MD, FACS Unavailable Unavailable Gil Corrigan MD, FACS Unavailable Unavailable Gil Corrigan MD, FACS Unavailable Unavailable Gil Corrigan MD, FACS Unavailable Unavailable Gil Corrigan MD, FACS Unavailable Unavailable Gil Corrigan MD, FACS Unavailable Unavailable Gil Corrigan MD, FACS Unavailable Unavailable Gil Corrigan MD, FACS Unavailable Unavailable Gil Corrigan MD, FACS Unavailable Unavailable Ibarra Malik, Gil Marcos MD, FACS Unavailable Unavailable Ibarra Malik, Gil Marcos MD, FACS Unavailable Unavailable Ibarra Malik, Gil Marcos MD, FACS Unavailable Unavailable Ibarra Malik, Gil Marcos MD, FACS Unavailable Unavailable Ibarra Malik, Gil Marcos MD, FACS Unavailable Unavailable Ibarra Malik, Gil Marcos MD, FACS Unavailable Unavailable Ibarra Malik, Gil Marcos MD, FACS Unavailable Unavailable Ibarra Malik, Gil Marcos MD, FACS Unavailable Unavailable Ibarra Malik, Gil Marcos MD, FACS Unavailable Unavailable Ibarra Malik, Gil Marcos MD, FACS Unavailable Unavailable Ibarra Malik, Gil Marcos MD, FACS Unavailable Unavailable Ibarra Malik, Gil Marcos MD, FACS Unavailable Unavailable Ibarra Malik, Gil Marcos MD, FACS Unavailable Unavailable Ibarra Malik, Gil Marcos MD, FACS Unavailable Unavailable Ibarra Malik, Gil Marcos MD, FACS Unavailable Unavailable Ibarra Malik, Gil Marcos MD, FACS Unavailable Unavailable Ibarra Malik, Gil Marcos MD, FACS Unavailable Unavailable Ibarra Malik, Gil Marcos MD, FACS Unavailable Unavailable Ibarra Malik, Gil Marcos MD, FACS Unavailable Unavailable Ibarra Malik, Gil Marcos MD, FACS Unavailable Unavailable Ibarra Malik, Gil Marcos MD, FACS Unavailable Unavailable Ibarra Malik, Gil Marcos MD, FACS Unavailable Unavailable Ibarra Malik, Gil Marcos MD, FACS Unavailable Unavailable Ibarra Malik, Gil Marcos MD, FACS Unavailable Unavailable Ibarra Malik, Gil Marcos MD, FACS Unavailable Unavailable Ibarra Malik, Gil Marcos MD, FACS Unavailable Unavailable Ibarra Malik, Gil Marcos MD, FACS Unavailable Unavailable Ramirez, Eb PA Unavailable Unavailable Ramirez, Eb PA Unavailable Unavailable Ramirez, Eb PA Unavailable Unavailable Ramirez, Eb PA Unavailable Unavailable Ramirez, Eb PA Unavailable Unavailable Ramirez, Eb PA Unavailable Unavailable Ramirez, Eb PA Unavailable Unavailable Ramirez, Eb PA Unavailable Unavailable Ramirez, Eb PA Unavailable Unavailable Ramirez, Eb PA Unavailable Unavailable Ramirez, Eb PA Unavailable Unavailable Ramirez, Eb PA Unavailable Unavailable Ramirez, Eb PA Unavailable Unavailable CANUTE, W BRENDAN MORAN Unavailable Unavailable CANUTE, W BRENDAN MORAN Unavailable Unavailable CANUTE, W BRENDAN MORAN Unavailable Unavailable CANUTE, W BRENDAN MORAN Unavailable Unavailable CANUTE, W BRENDAN MORAN Unavailable Unavailable CANUTE, W BRENDAN MORAN Unavailable Unavailable CANUTE, W BRENDAN MORAN Unavailable Unavailable CANUTE, W BRENDAN MORAN Unavailable Unavailable CANUTE, W BRENDAN MORAN Unavailable Unavailable CANUTE, W BRENDAN MORAN Unavailable Unavailable CANUTE, W BRENDAN MORAN Unavailable Unavailable CANUTE, W BRENDAN MORAN Unavailable Unavailable CANUTE, W BRENDAN MORAN Unavailable Unavailable CANUTE, W BRENDAN MD Unavailable Unavailable CANUTE, W BRENDAN MD Unavailable Unavailable CANUTE, W BRENDAN MD Unavailable Unavailable CANUTE, W BRENDAN MD Unavailable Unavailable CANUTE, W BRENDAN MD Unavailable Unavailable CANUTE, W BRENDAN MD Unavailable Unavailable CANUTE, W BRENDAN MD Unavailable Unavailable CANUTE, W BRENDAN MD Unavailable Unavailable CANUTE, W BRENDAN MD Unavailable Unavailable CANUTE, W BRENDAN MD Unavailable Unavailable CANUTE, W BRENDAN MD Unavailable Unavailable CANUTE, W BRENDAN MD Unavailable Unavailable CANUTE, W BRENDAN MD Unavailable Unavailable CANUTE, W BRENDAN MD Unavailable Unavailable CANUTE, W BRENDAN MD Unavailable Unavailable CANUTE, W BRENDAN MD Unavailable Unavailable CANUTE, W BRENDAN MD Unavailable Unavailable CANUTE, W BRENDAN MD Unavailable Unavailable CANUTE, W BRENDAN MD Unavailable Unavailable CANUTE, W BRENDAN MD Unavailable Unavailable CANUTE, W BRENDAN MD Unavailable Unavailable CANUTE, W BRENDAN MD Unavailable Unavailable CANUTE, W BRENDAN MD Unavailable Unavailable CANUTE, W BRENDAN MD Unavailable Unavailable CANUTE, W BRENDAN MD Unavailable Unavailable CANUTE, W BRENDAN MD Unavailable Unavailable CANUTE, W BRENDAN MD Unavailable Unavailable CANUTE, W BRENDAN MD Unavailable Unavailable CANUTE, W BRENDAN MD Unavailable Unavailable CANUTE, W BRENDAN MD Unavailable Unavailable CANUTE, W BRENDAN MD Unavailable Unavailable CANUTE, W BRENDAN MD Unavailable Unavailable CANUTE, W BRENDAN MD Unavailable Unavailable CANUTE, W BRENDAN MD Unavailable Unavailable CANUTE, W BRENDAN MD Unavailable Unavailable CANUTE, W BRENDAN MD Unavailable Unavailable CANUTE, W BREDNAN MD Unavailable Unavailable CANUTE, W BRENDAN MD Unavailable Unavailable CANUTE, W BRENDAN MD Unavailable Unavailable CANUTE, W BRENDAN MD Unavailable Unavailable CANUTE, W BRENDAN MD Unavailable Unavailable CANUTE, W BRENDAN MD Unavailable Unavailable CANUTE, W BRENDAN MD Unavailable Unavailable CANUTE, W BRENDAN MD Unavailable Unavailable CANUTE, W BRENDAN MD Unavailable Unavailable CANUTE, W BRENDAN MD Unavailable Unavailable CANUTE, W BRENDAN MD Unavailable Unavailable CANUTE, W BRENDAN MD Unavailable Unavailable CANUTE, W BRENDAN MD Unavailable Unavailable CANUTE, W BRENDAN MD Unavailable Unavailable CANUTE, W BRENDAN MD Unavailable Unavailable CANUTE, W BRENDAN MD Unavailable Unavailable CANUTE, W BRENDAN MD Unavailable Unavailable CANUTE, W BRENDAN MD Unavailable Unavailable CANUTE, W BRENDAN MD Unavailable Unavailable CANUTE, W BRENDAN MD Unavailable Unavailable CANUTE, W BRENDAN MD Unavailable Unavailable CANUTE, W BRENDAN MD Unavailable Unavailable CANUTE, W BRENDAN MD Unavailable Unavailable CANUTE, W BRENDAN MD Unavailable Unavailable CANUTE, W BRENDAN MD Unavailable Unavailable CANUTE, W BRENDAN MD Unavailable Unavailable CANUTE, W BRENDAN MD Unavailable Unavailable CANUTE, W BRENDAN MD Unavailable Unavailable CANUTE, W BRENDAN MD Unavailable Unavailable CANUTE, W BRENDAN MD Unavailable Unavailable CANUTE, W BRENDAN MD Unavailable Unavailable CANUTE, W BRENDAN MD Unavailable Unavailable CANUTE, W BRENDAN MD Unavailable Unavailable CANUTE, W BRENDAN MD Unavailable Unavailable CANUTE, W BRENDAN MD Unavailable Unavailable CANUTE, W BRENDAN MD Unavailable Unavailable CANUTE, W BRENDAN MD Unavailable Unavailable CANUTE, W BRENDAN MD Unavailable Unavailable CANUTE, W BRENDAN MD Unavailable Unavailable CANUTE, W BRENDAN MD Unavailable Unavailable CANUTE, W BRENDAN MD Unavailable Unavailable CANUTE, W BRENDAN MD Unavailable Unavailable CANUTE, W BRENDAN MD Unavailable Unavailable CANUTE, W BRENDAN MD Unavailable Unavailable CANUTE, W BRENDAN MD Unavailable Unavailable CANUTE, W BRENDAN MD Unavailable Unavailable CANUTE, W BRENDAN MD Unavailable Unavailable CANUTE, W BRENDAN MD Unavailable Unavailable CANUTE, W BRENDAN MD Unavailable Unavailable CANUTE, W BRENDAN MD Unavailable Unavailable CANUTE, W BRENDAN MD Unavailable Unavailable CANUTE, W BRENDAN MD Unavailable Unavailable CANUTE, W BRENDAN MD Unavailable Unavailable CANUTE, W BRENDAN MD Unavailable Unavailable Re-disclosure Warning The records that you are about to access may contain information from federally-assisted alcohol or drug abuse programs. If such information is present, then the following federally mandated warning applies: This information has been disclosed to you from records protected by federal confidentiality rules (42 CFR part 2). The federal rules prohibit you from making any further disclosure of this information unless further disclosure is expressly permitted by the written consent of the person to whom it pertains or as otherwise permitted by 42 CFR part 2. A general authorization for the release of medical or other information is NOT sufficient for this purpose. The Federal rules restrict any use of the information to criminally investigate or prosecute any alcohol or drug abuse patient.The records that you are about to access may contain highly sensitive health information, the redisclosure of which is protected by Article 27-F of the [facility] Public Health law. If you continue you may have access to information: Regarding HIV / AIDS; Provided by facilities licensed or operated by the [facility] Office of Mental Health; or Provided by the [facility] Office for People With Developmental Disabilities. If such information is present, then the following [facility] mandated warning applies: This information has been disclosed to you from confidential records which are protected by state law. State law prohibits you from making any further disclosure of this information without the specific written consent of the person to whom it pertains, or as otherwise permitted by law. Any unauthorized further disclosure in violation of state law may result in a fine or fci sentence or both. A general authorization for the release of medical or other information is NOT sufficient authorization for further disc losure. Family History Family Member Name Family Member Gender Family Member Status Date o f Status Description Data Source(s) Unknown Male Problem MEDENT ([facility]) () - Age Unknown Unknown Unknown Problem MEDENT ([facility]) Unknown Unknown Problem MEDENT ([facility]) Encounters Encounter Providers Location Date Indications Data Source(s ) Outpatient Attender: Eb VALDEZ 07/01/2021 01:01:00 PM [facility] Outpatient Attender: Eb VALDEZ 07/01/2021 12:00:00 PM [facility] Emergency Attender: Eb Guadarrama: NAYELI CAZARES EMERGENCY ROOM-ER 07/01/2021 11:31:00 AM EST - 07/01/2021 03:15:00 PM [facility] Patient discharged. [place] [address] [address] 06/30/2021 12:00:00 AM EST eCW1 ([facility]) Outpatient Attender: Fortunato Hagenerrer: JOSUÉ BARNARD MD [id number] 06/17/2021 12:32:58 AM EST [facility] [place] [address] [address] 06/04/2021 12:00:00 AM EDT eCW1 ([facility]) [place] [address] [address] 03/10/2021 12:00:00 AM EDT eCW1 ([facility]) [place] [address] [address] 03/06/2021 12:00:00 AM EDT eCW1 ([facility]) [place] [address] [address] 02/07/2021 12:00:00 AM EDT eCW1 ([facility]) [place] [address] [address] 02/02/2021 12:00:00 AM EDT eCW1 ([facility]) [place] [address] [facility] [address] 01/29/2021 12:00:00 AM EDT eCW1 ([facility]) [place] [address] [address] 01/26/2021 12:00:00 AM EDT eCW1 ([facility]) Outpatient Attender: Earlene Braden: NAYELI ESPINO 01/17/2021 01:00:00 PM [facility] [place] [address] [address] 01/16/2021 12:00:00 AM EDT eCW1 ([facility]) [place] [address] [facility] [address] 01/16/2021 12:00:00 AM EDT eCW1 ([facility]) [place] [address] [address] 01/15/2021 12:00:00 AM EDT eCW1 ([facility]) [place] [address] [facility] [address] 01/06/2021 12:00:00 AM EDT eCW1 ([facility]) [place] [address] [facility] [address] 01/03/2021 12:00:00 AM EDT eCW1 ([facility]) [place] [address] [facility] [facility] [address] 01/02/2021 12:00:00 AM EDT eCW1 ([facility]) [place] [address] [facility] [address] 12/24/2020 12:00:00 AM EDT eCW1 ([email or web address] [place] [address] [facility] [address] 12/09/2020 12:00:00 AM EDT eCW1 ([email or web address] [place] [address] [facility] [facility] [address] 12/09/2020 12:00:00 AM EDT eCW1 ([email or web address] [place] [address] [facility] [facility] [address] 12/06/2020 12:00:00 AM EDT eCW1 ([email or web address] [place] [address] [facility] [facility] [address] 10/29/2020 12:00:00 AM EDT eCW1 ([email or web address] [place] [address] [facility] [facility] [address] 10/07/2020 12:00:00 AM EST eCW1 ([email or web address] [place] [address] [facility] [facility] [address] 09/04/2020 12:00:00 AM EST eCW1 ([facility] [[email or web address] Outpatient<td ID="encounterTypeDescripti onID0">1 Year Follow-Up & Testing</td><td>Hemant Solano MD, FACS</td><td>Hemant Solano MD [facility]</td><td>05/08/2020</td><td>12:52PM</td><td>1:45PM</td><td><content ID="encounterDiagnosisID0-0">Macular Degeneration Nonexudative Bilateral Early Dry Stage</content>, <content ID="encounterDiagnosisID0-1">Posterior Capsule Opacification Eccentric Capsule Both Eyes</content>, <content ID="encounterDiagnosisID0-2">Pseudophakia</content>, <content ID="encounterDiagnosisID0-3">Dry Eye Syndrome Both Eyes</content></td> Attender: Hemant Malik MD, FACS Hemant Solano MD [facility] 05/08/2020 12:52:00 PM EDT - 05/08/2020 01:45:00 PM EDT Macular Degeneration Nonexudative Bilate ral Early Dry StagePseudophakiaPosterior Capsule Opacification Eccentric Capsule Both EyesDry Eye Syndrome Both Eyes GELA (Hemant Malik MD [facility]) Macular Degeneration Nonexudative Bilate ral Early Dry Stage Pseudophakia Posterior Capsule Opacification Eccentri c Capsule Both Eyes Dry Eye Syndrome Both Eyes Medications Medication Brand Name Start Date Product Form Dose Route Admi nistrative Instructions Pharmacy Instructions Status Indications Reaction Description Data Source(s) Walker - Walker - 12/09/2020 12:00:00 AM EDT activ e eCW1 ([facility]) Walker - Walker - 12/09/2020 12:00:00 AM EDT activ e Walker - eCW1 ([facility]) Walker - Walker - 12/09/2020 12:00:00 AM EDT activ e Walker - eCW1 ([facility]) Walker - Walker - 12/09/2020 12:00:00 AM EDT activ e Walker - eCW1 ([facility]) Walker - Walker - 12/09/2020 12:00:00 AM EDT activ e Walker - eCW1 ([facility]) Walker - Walker - 12/09/2020 12:00:00 AM EDT activ e Walker - eCW1 ([facility]) Walker - Walker - 12/09/2020 12:00:00 AM EDT activ e Walker - eCW1 ([facility]) Walker - Walker - 12/09/2020 12:00:00 AM EDT activ e Walker - eCW1 ([facility]) Walker - Walker - 12/09/2020 12:00:00 AM EDT activ e Walker - eCW1 ([facility]) Walker - Walker - 12/09/2020 12:00:00 AM EDT activ e Walker - eCW1 ([facility]) Walker - Walker - 12/09/2020 12:00:00 AM EDT activ e Walker - eCW1 ([facility]) Walker - Walker - 12/09/2020 12:00:00 AM EDT activ e Walker - eCW1 ([facility]) Walker - Walker - 12/09/2020 12:00:00 AM EDT activ e Walker - eCW1 ([facility]) Walker - Walker - 12/09/2020 12:00:00 AM EDT activ e Walker - eCW1 ([facility]) Walker - Walker - 12/09/2020 12:00:00 AM EDT activ e Walker - eCW1 ([facility]) Walker - Walker - 12/09/2020 12:00:00 AM EDT activ e Walker - eCW1 ([facility]) Walker - Walker - 12/09/2020 12:00:00 AM EDT activ e Walker - eCW1 ([facility]) Walker - Walker - 12/09/2020 12:00:00 AM EDT activ e Walker - eCW1 ([facility]) Insurance Providers Payer name Policy type / Coverage type Policy ID Covered republican ID Covered republican's relationship to morrissey Policy Morrissey Plan Information MEDICARE A [id number] Self [id number] A MEDICARE 4 [id number] 1 [id number] A MEDICARE 4 [id number] 1 [id number] A [facility] 2 [id number] 1 [id number] MEDICARE [id number] SP [id number] A Medicare Part B [facility] Other 0 [id number] Self 0 Medicare Medicare Primary [id number] Self Mail Hand[employer] F [id number] SELF [id number] Medicare C [id number] SELF [id number] [employer] F [id number] SELF [id number] Medicare C [id number] SELF [id number] A [employer] PLAN U [id number] Self [id number] [facility] C [id number] SELF [id number] [employer] BENEFIT PLAN [id number] S [id number] [facility] Secondary [id number] Medicare Primary [id number] [employer] BENEFIT PLAN [id number] S [id number] ANSI-Medicare Part B [id number] ANSI-Commercial [id number] ANSI-Commercial [id number] ANSI-Medicare Part B [id number] ANSI-Commercial [id number]-[id number]-13p3-[id number] ANSI-Medicare Part B [id number] ANSI-Commercial [id number]-[id number]-[id number] ANSI-Medicare Part B [id number] ANSI-Medicare Part B [id number] ANSI-Commercial 31315g52-i5h0-8873-21n7-xxa08n7mluap [id number]-[id number]-bav78v7drdsb ANSI-Commercial [id number]-[id number] ANSI-Medicare Part B [id number] MEDICARE PART B-[facility] [id number] 18 [id number] ANSI-Commercial [id number]-[id number] [id number]-[id number] ANSI-Medicare Part B [id number] ANSI-Medicare Part B [id number] ANSI-Commercial [id number]-3787-[id number]-[id number] [id number]-[id number]-[id number] ANSI-Medicare Part B [id number] ANSI-Commercial [id number]-5t68-7a24-[id number] [id number]-5f19-4e53-[id number] ANSI-Medicare Part B [id number] ANSI-Commercial [id number]-[id number]-[id number] y8vlt20l-2z99-8y32-7zn5-yf0b9p054054 ANSI-Commercial [id number]-[id number]-[id number] ANSI-Medicare Part B [id number] ANSI-Medicare Part B [id number] ANSI-Commercial [id number]-977c-6kx5-ay97-93l08si65hep [id number]-972w-6ta4-lo56-71k69yi14kbr ANSI-Commercial [id number]-o806-2rpq-8p2x-[id number] [id number]-[id number]-8n0a-[id number] ANSI-Medicare Part B [id number] ANSI-Commercial [id number]-95mf-[id number] [id number]-[id number] ANSI-Medicare Part B [id number]-ex2a-[id number] ANSI-Medicare Part B [id number]-u0iu-[id number] ANSI-Commercial [id number]-j337-3co2-t5qg-er38fzz58p9o g4f675y7-z535-9go5-a2kf-tz53dwe83m6o ANS-Medicare Part B [id number] ANSI-Commercial uh30u7rh-[id number] jq21o6tr-h458-24d8-7257-4w93c233693c ANS-Medicare Part B [id number] ANSI-Commercial [id number]-d9m2-gy5f4610fs6q [id number]-i8u5-cc3v7629bm8y ANS-Medicare Part B [id number] ANSI-Commercial 46314ate-[id number]-tn7c-[id number]-w7v2-13h2-ol5e-[id number] Aetna (pr) [facility] Part B [id number] ..[id number] .[id number] Self [id number] Medicare [place] Medicare Primary [id number] ...[id number] Self [id number] [facility] BENEFIT PLAN [id number] Aetna (pr) Medigap Part B [id number] ..[id number] .[id number] Self [id number] Medicare [place] Medicare Primary [id number] Self [id number] ANSI-Commercial [id number] [id number]-[id number] ANSI-Medicare Part B [id number] ANS-Medicare Part B [id number] ANSI-Commercial 451q0t0y-b11m-209b-5r96-oo5ds3q8bces 247x9t2b-w84r-705x-0n78-cz4ee2h6snyy [place] Medicare Primary [id number] ...[id number] Self [id number] ANSI-Medicare Part B [id number] ANSI-Commercial [id number]-[id number] [id number]-[id number] Aetna Medigap Part B [id number] 2..1.858400.3.227.99.104.331 115.0 Self [id number] Medicare [place] Medicare Primary [id number] ..[id number] Self [id number] MHBP Medigap Part B [id number] 2..[id number] 1115.0 Self [id number] [employer] [id number] Self [id number] Medicare [place] Medicare Primary [id number] Self [id number] ANSI-Commercial [id number] [id number] ANSI-Medicare Part B [id number] AETNA MEDICARE [id number] SP [id number] MEDICARE [id number] SP [id number] A ANSI-Commercial [id number]-[id number] [id number]-8mlk-81jx-596x-[id number] ANSI-Medicare Part B [id number] Aetna [facility] Part B [id number] 115.0 Self [id number] Medicare [place] Medicare Primary [id number] Self [id number] UNAVAILABLE UNAVAILA BLE AETNA HEA [id number] S [id number] MEDICARE MCA [id number] S [id number] MEDICARE MCA [id number] S [id number] Medicare [place] Medicare Primary [id number] Self [id number] [employer] BENEFIT PLAN [id number] SP [id number] [employer] BENEFIT PLAN [id number] SP [id number] [facility] HE[facility] PLAN [id number] SP [id number] [employer] BENEFIT PLAN [id number] SP [id number] [facility] OPTIONS [id number] SP [id number] [facility] PLAN [id number] SP [id number] ANSI-Medicare Part B [id number] ANSI-Commercial [id number] SELF PAY ONLY [id number] SP [id number] ANSI-Commercial [id number] ANSI-Medicare Part B [id number] [facility] [id number] SP [id number] [facility] MAIL HANDLERS BENEF O [id number] S [id number] MEDICARE C [id number] S [id number] A Medicare [place] Medicare Primary [id number] Self [id number] [employer] Medigap Part B [id number] Self [id number] Medicare [place] Medicare Primary [id number] Self [id number] [employer] BENEFIT PLAN [id number] SP [id number] [employer] [id number] Self [id number] Medicare [place] Medicare Primary [id number] Self [id number] MHBP Medigap Part B [id number] Self MHBP O [id number] S [id number] MEDICARE M [id number] S [id number] A MHBP AETNA O [id number] S [id number] [employer] BENEFIT PLAN-RECURRING [id number] 18 [id number] MEDICARE -RECURRING [id number] 18 [id number] SELF PAY 2 UNAVAILABLE 1 UNAVAILA BLE [employer]IL [employer]ERS BENFT O [id number] S [id number] MEDICARE OUTPATIENT M [id number] S [id number] [employer] BENEFIT PLAN [id number] SP [id number] MEDICARE [id number] SP [id number] [facility] MED[facility] [id number] S [id number] [place]IC[place] [id number] S [id number] [employer] BENEFIT PLAN [id number] SP [id number] [employer] Benefit Plan Other 0 [id number] Self 0 [place] MEDICARE DIVISION [id number] S [id number] [place]IC[place] [id number] S [id number] [employer] BENEFIT PLAN [id number] S [id number] [employer] BENEFIT PLAN [id number] S [id number] [facility] MEDICARE DIVISION [id number] S [id number] [place]IC[place] [id number] S [id number] [employer] BENEFIT PLAN [id number] S [id number] [facility] MEDICARE DIVISION [id number] S [id number] MEDICARE [place] [id number] S [id number] MEDICARE PART A -RECURRING [id number] 18 [id number] [place] BENEFIT PLAN-RECURRING [id number] Problems, Conditions, and Diagnoses Code Display Name Description Problem Type Effective Dates Data Source(s) R92.8 Other abnormal and inconclusive findings on diagnostic imaging of breast OTH ABN AND INCONCLUSIVE FINDINGS ON DX IMAGING OF Diagnosis 05:19:00 PM [facility] Z12.31 Encounter for screening mammogram for ma lignant neoplasm of breast ENCNTR SCREEN MAMMOGRAM FOR MALIGNANT NE Diagnosis 01/17/2021 05:19:00 PM [facility] N63.20 UNSPECIFIED LUMP IN THE LEFT BREAST, UNS PECIFIED QUADRANT UNSPECIFIED LUMP IN THE LEFT BREAST, UNSPECIFIED QUADRANT Diagnosis 01/18/20 21 05:19:00 PM [facility] I50.32 [id number] Chronic diastolic heart failure Problem 02/02/2021 12:00:00 AM EDT eCW1 ([facility]) R29.6 [id number] Frequent falls Problem 12/24/2020 12:00:00 A M EDT eC1 ([facility]) F32.9 [id number] Controlled depression Problem 10/29/2020 12: 00:00 AM EDT eCW1 ([facility]) [id number] Ptosis of eyebrow (finding) Eyebrow Ptosis Finding 05/08/2020 01:15:00 PM EDT GELA (Hemant Malik MD [facility]) [id number] 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 Problem 01:13:00 PM EDT GELA (Hemant Malik MD [facility]) Surgeries/Procedures Procedure Description Date Indications Data Source(s) ECG ROUTINE ECG W/LEAST 12 LDS W/I&R 12/24/2020 12:00: 00 AM EDT eCW1 ([facility]) Surgical / procedural history Knee Replacement right side Surgical / procedural history Knee Replacement right side 05/08/2020 12:00:00 AM EDT GELA (Hemant Malik MD [facility]) COMPUTERIZED OPHTHALMIC IMAGING RETINA Scodi Retina, w ith interpretation and report ([place]) 05/08/2020 12:00:00 AM EDT GELA (Shine Malik MD [facility]) Comprehensive eye exam established patient (25) Pattie hensive eye exam established patient (25) 05/08/2020 12:00:00 AM EDT GELA (Hemant Malik MD [facility]) Results ID Date Data Source [id number] 07/01/2021 05:06:00 PM EST [facility] Patient: EDISON CALDERON Observation Report - Physicians/Mid Levels [facility].VisitID: [id number] [place] [address] [phone], [place] [facility] [place] Date/Time: 07/01/2021 10:32 Weight:65.7 kg (S). Height/Length:63 inches (S). BMI:25.7 PAST HISTORYMedications:Lwcvhvyqh-Zpeosuusd-Jqwapusmjy Oral 15mg, daily, last dose yesterday am.TraZODone HCl Oral 50 mg, daily at bedtime, last dose last pm.Vitamin D Oral 50mcg, daily, last dose yesterday.DULoxetine HCl Oral 60mg, daily, last dose yesterday am.Esomeprazole Magnesium Oral 40 mg, daily, last d ose yesterday.Imodium A-D Oral, daily, last dose today. Allergies:Demerol.(nausea)Morphine.(nausea). FAMILY HISTORY(non contributory). (Electronically signed by Eb Ramirez PA-C 07/01/2021 14:17) Name Value Range Interpretation Code Description Data Mariela rce(s) Supporting Document(s) ID Date Data Source [id number] 07/01/2021 01:28:00 PM EST [facility] DATE OF EXAMINATION: 07/01/2021 12:32 ES T CHEST 1 VIEW HISTORY: Covid positive TECHNIQUE: Single frontal radiograph of chest COMPARISON: 02/10/2018 FINDINGS: No evidence of focal consolidation, pneumothorax or large pleural effusion.Lungs are clear. Mediastinal structures are unremarkable. No aggressive osseouslesions. IMPRESSION: No focal consolidation. Electronically signed in PS360 by: Elias Melara M.D. 07/01/2021 13:23 EST Name Value Range Interpretation Code Description Data Mariela rce(s) Supporting Document(s) ID Date Data Source [id number] 07/01/2021 12:40:00 PM EST [facility] TSYSORDER [id number] Name Value Range Interpretation Code Description Data Mariela rce(s) Supporting Document(s) LACTIC ACID 0.9 mmol/L 0.4-2.0 [facility] ID Date Data Source [id number] 07/01/2021 12:38:00 PM EST [facility] TSYSORDER [id number] Name Value Range Interpretation Code Description Data Mariela rce(s) Supporting Document(s) Adenovirus Not Detected Detected Not [facility] Coronavirus 229E Not Detected Detected Not [facility] Coronavirus HKU1 Not Detected Detected Not [facility] Coronavirus NL63 Not Detected Detected Not [facility] Coronavirus OC43 Not Detected Detected Not [facility] Sars Cov 2 DETECTED [facility] Negative results do not preclude SARS-Co V-2 infection andshould not be used as the sole basis for treatment or otherpatient management decisions. Negative SARS-CoV-2 resultsmust be combined with clinical observations, patienthistory, and epidemiological information. Human Metapneumovirus Not Detected Detected Not [facility] Human Rhinovirus Not Detected Detected Not [facility] Influenza A Not Detected Detected Not [facility] Influenza B Not Detected Detected Not [facility] Parainfluenza Virus 1 Not Detected Detected Not [facility] Parainfluenza Virus 2 Not Detected Detected Not [facility] Parainfluenza Virus 3 Not Detected Detected Not [facility] Parainfluenza Virus 4 Not Detected Detected Not [facility] Respiratory Syncytial Virus Not Detected Detected Not [facility] Bordetella parapertus (CG8121) Not Detected Detected Not [facility] Bordetella pertussis (ptxP) Not Detected Detected Not [facility] Chlamydia pneumoniae Not Detected Detected Not [facility] Mycoplasma pneumoniae Not Detected Detected Not [facility] The results of the respiratory panel veronica uld notbe used as the sole basis for diagnosis, treatmentor other patient management decisions.Negative results in the setting of a respiratoryillness may be due to infection with pathogens that are not detected by this test,or lower respiratorytract infection that may not be detected by a nasopharyngeal swab specimen.Positive results do not rule out co-infection with other organisms: the agent(s) detected by the FilmArrayRP2 may not be the definite cause of disease. Additional Laboratory testing may be necessary when evaluating a patient with possible respiratory tract infection.The Above results have been determined by using the [employer] FilmArray system.FilmArray is an automated in vitro diagnostic system thatutilizes nested multiplex Polymerase Chain Reaction (PCR)and high-resolution melting analysis to detect and identifymultiple nucleic acid targets from clinical specimens. ID Date Data Source [id number] 07/01/2021 12:08:00 PM [facility] TSYSORDER [id number] Name Value Range Interpretation Code Description Data Mariela rce(s) Supporting Document(s) PARTIAL THROMBOPLASTIN TIME 33.2 SECONDS 21.3-29.7 H [facility] ID Date Data Source [id number] 07/01/2021 12:08:00 PM [facility] TSYSORDER [id number] Name Value Range Interpretation Code Description Data Mariela rce(s) Supporting Document(s) PROTHROMBIN TIME (PATIENT) 10.6 SECONDS 9.1-11.3 [facility] INR 1.04 0.87-1.06 [facility] ID Date Data Source [id number] 07/01/2021 11:51:00 AM [facility] TSYSORDER [id number] Name Value Range Interpretation Code Description Data Mariela rce(s) Supporting Document(s) WHITE BLOOD COUNT 2.4 K/mm3 4.0-10.0 L [facility] al RED BLOOD COUNT 3.88 M/mm3 4.00-5.50 L [facility] HEMOGLOBIN 10.5 gm/dL 12.0-16.0 L [facility] HEMATOCRIT 32.6 % 36.0-48.8 L [facility] MEAN CELL VOLUME 84.0 fl 80-96 [facility] MEAN CORPUSCULAR HEMOGLOBIN 27.1 pg 27.0-31.0 [facility] MEAN CORPUSCULAR HGB CONC 32.2 g/dl 32.0-36.0 [facility] RED CELL DISTRIBUTION WIDTH 14.7 % 10.0-14.5 H [facility] PLATELET COUNT 154 K/mm3 172-450 L [facility] MEAN PLATELET VOLUME 10.8 fl 9.0-13.0 [facility] pital GRAN % 77.9 % 50-80.0 [facility] IG% 0.4 % 0.0-0.2 H [facility] LYMPH % 12.1 % 25.0-50.0 L [facility] MONO % 9.2 % 2.0-10.0 [facility] EOS % 0.0 % 0-5.0 [facility] BASO % 0.4 % 0.0-2.0 [facility] GRAN # 1.9 K/mm3 2.0-8.00 L [facility] IG# 0.0 K/mm3 0.0-0.2 [facility] LYMPH # 0.3 K/mm3 1.0-5.0 L [facility] MONO # 0.2 K/mm3 0.10-1.20 [facility] EOS # 0.0 K/mm3 0.0-0.5 [facility] BASO # 0.0 K/mm3 0.0-0.2 [facility] ID Date Data Source [id number] 07/01/2021 12:10:00 PM [facility] TSYSORDER [id number] Name Value Range Interpretation Code Description Data Mariela rce(s) Supporting Document(s) LIPASE 146 U/L 73-393 [facility] ID Date Data Source [id number] 07/01/2021 12:10:00 PM [facility] TSYSORDER [id number] Name Value Range Interpretation Code Description Data Mariela rce(s) Supporting Document(s) GLUCOSE 111 mg/dL 74-106 H [facility] BLOOD UREA NITROGEN 19 mg/dL 7-18 H [facility] ital CREATININE 1.10 mg/dl 0.55-1.02 H [facility] SODIUM 139 mmol/L 136-145 [facility] POTASSIUM 3.6 mmol/L 3.5-5.1 [facility] CHLORIDE 101 mmol/L 98-107 [facility] CO2 29 mmol/L 21-32 [facility] CALCIUM 7.8 mg/dL 8.5-10.1 L [facility] ANION GAP 9.0 mmol/L 5-12 [facility] GLOMERULAR FILTRATION RATE 47 mL/min [facility] GFR IS CALCULATED IN mL/min/1.73m2 JOSÉ LUIS L FUNCTION: >90MILDLY DECREASED: 60-89MILDY TO MODERATELY DECREASED: 45-59 MODERATELY TO SEVERELY DECREASED: 30-44SEVERELY DECREASED: 15-29RENAL FAILURE: <15 AST 21 U/L 15-37 [facility] RESULT TO FOLLOW. ALT 21 U/L 14-59 [facility] RESULT TO FOLLOW.07/01/21 1537: ALT pre viously reported as: U/L RESULT TO FOLLOW. ALKALINE PHOSPHATASE 67 U/L 46-116 [facility] pital TOTAL BILIRUBIN 0.5 mg/dL 0.2-1.0 [facility] TOTAL PROTEIN 6.7 g/dL 6.4-8.2 [facility] ALBUMIN 3.1 gm/dL 3.4-5.0 [facility] ID Date Data Source [id number] 01/17/2021 02:19:00 PM EDT [facility] l DATE OF EXAMINATION: 01/17/2021 13:02 EDT MAMMO DIAG ROSA WITH CAD HISTORY: Screening Not provided Comparison is made to prior study dated none. 2-D bilateral digital mammogram in the CC and MLO planes were performed withsupplemental 3-D tomosynthesis of both breasts. The images were analyzed through the latest version of the Datezr computer aideddiagnosis system. The patient states that her last clinical breast examination was one day ago. Craniocaudal and oblique lateral views of the breasts were obtained. (B) Thereare scattered areas of fibroglandular density. . There is no dominant mass,suspicious clustered calcification, or architectural distortion. IMPRESSION: No mammographic evidence of malignancy. Final assessment of breast composition BIRAD classification (B) There arescattered areas of fibroglandular density. BIRAD 2 - Benign Findings, Routine Yearly Mammographic Follow-up recommended. 10-15% of cancers are not identified by mammography. This usually occurs whenthe mass is of the same radiographic density as the surrounding breast tissue,emphasizing the importance of breast self examination (BSE) and physicalexamination. A normal mammogram should not delay biopsy if a suspicious mass orabnormal findings are present upon physical examination. Electronically signed in PS360 by: Elias Melara M.D. 01/17/2021 14:14 EDT Name Value Range Interpretation Code Description Data Mariela rce(s) Supporting Document(s) Procedure Social History Code Duration Value Status Description Data Source(s ) Smoking 06/03/2021 12:00:00 AM EDT Never Smoker completed Never S moker eCW1 ([facility]) Smoking 06/03/2021 12:00:00 AM EDT Never Smoker completed Never S moker eCW1 ([facility]) Smoking 01/15/2021 12:00:00 AM EDT Never Smoker completed Never S moker eCW1 ([facility]) Smoking 01/15/2021 12:00:00 AM EDT Never Smoker completed Never S moker eCW1 ([facility]) Smoking 01/15/2021 12:00:00 AM EDT Never Smoker completed Never S moker eCW1 ([facility]) Smoking 01/15/2021 12:00:00 AM EDT Never Smoker completed Never S moker eCW1 ([facility]) Smoking 01/15/2021 12:00:00 AM EDT Never Smoker completed Never S moker eCW1 ([facility]) Smoking 01/15/2021 12:00:00 AM EDT Never Smoker completed Never S moker eCW1 ([facility]) Smoking 01/15/2021 12:00:00 AM EDT Never Smoker completed Never S moker eCW1 ([facility]) Smoking 01/15/2021 12:00:00 AM EDT Never Smoker completed Never S moker eCW1 ([facility]) Smoking 01/15/2021 12:00:00 AM EDT Never Smoker completed Never S moker eCW1 ([facility]) Smoking 12/24/2020 12:00:00 AM EDT Never Smoker completed Never S moker eCW1 ([facility]) Smoking 12/24/2020 12:00:00 AM EDT Never Smoker completed Never S moker eCW1 ([facility]) Smoking 12/24/2020 12:00:00 AM EDT Never Smoker completed Never S moker eCW1 ([facility]) Smoking 12/24/2020 12:00:00 AM EDT Never Smoker completed Never S moker eCW1 ([facility]) Smoking 12/09/2020 12:00:00 AM EDT Never Smoker completed Never S moker eCW1 ([facility]) Smoking 12/09/2020 12:00:00 AM EDT Never Smoker completed Never S moker eCW1 ([facility]) Smoking 12/09/2020 12:00:00 AM EDT Never Smoker completed Never S moker eCW1 ([facility]) Smoking 10/29/2020 12:00:00 AM EDT Never Smoker completed Never S moker eCW1 ([facility]) Smoking 05/08/2020 02:13:53 PM EDT Never smoked tobacco (findi ng) completed Never smoked tobacco (finding) GELA (Hemant Malik MD [facility]) Vital Signs ID Date Data Source UNK Name Value Range Interpretation Code Description Data Source(s) Body weight 155 [lb_av] 155 [lb_av] eCW1 ([facility]) Body height 63.5 [in_i] 63.5 [in_i] eCW1 ([facility]) Body mass index (BMI) [Ratio] 27.02 kg/m2 27.02 kg/m2 eCW1 ([facility]) Heart rate 80 /min 80 /min eCW1 ([facility]) Respiratory rate 18 /min 18 /min eCW1 ([facility]) Body temperature 97.1 [degF] 97.1 [degF] eCW1 ( [facility]) Systolic blood pressure 127 mm[Hg] 127 mm[Hg] e CW1 ([facility]) Diastolic blood pressure 72 mm[Hg] 72 mm[Hg] eCW1 ([facility]) Body weight 155 [lb_av] 155 [lb_av] eCW1 ([facility]) Body height 63.5 [in_i] 63.5 [in_i] eCW1 ([facility]) Body mass index (BMI) [Ratio] 27.02 kg/m2 27.02 kg/m2 eCW1 ([facility]) Heart rate 77 /min 77 /min eCW1 ([facility]) Respiratory rate 18 /min 18 /min eCW1 ([facility]) Body temperature 97.7 [degF] 97.7 [degF] eCW1 ( [facility]) Systolic blood pressure 111 mm[Hg] 111 mm[Hg] e CW1 ([facility]) Diastolic blood pressure 72 mm[Hg] 72 mm[Hg] eCW1 ([facility]) Body weight 161.12 [lb_av] 161.12 [lb_av] eCW1 ([facility]) Body height 63.5 [in_i] 63.5 [in_i] eCW1 ([facility]) Body mass index (BMI) [Ratio] 28.09 kg/m2 28.09 kg/m2 eCW1 ([facility]) Heart rate 71 /min 71 /min eCW1 ([facility]) Respiratory rate 16 /min 16 /min eCW1 ([facility]) Body temperature 96.8 [degF] 96.8 [degF] eCW1 ( [facility]) Systolic blood pressure 118 mm[Hg] 118 mm[Hg] e CW1 ([facility]) Diastolic blood pressure 75 mm[Hg] 75 mm[Hg] eCW1 ([facility]) Body weight 155 [lb_av] 155 [lb_av] eCW1 ([facility]) Body height 63.5 [in_i] 63.5 [in_i] eCW1 ([facility]) Body mass index (BMI) [Ratio] 27.02 kg/m2 27.02 kg/m2 eCW1 ([facility]) Heart rate 85 /min 85 /min eCW1 ([facility]) Respiratory rate 18 /min 18 /min eCW1 ([facility]) Body temperature 97.6 [degF] 97.6 [degF] eCW1 ( [facility]) Systolic blood pressure 111 mm[Hg] 111 mm[Hg] e CW1 ([facility]) Diastolic blood pressure 66 mm[Hg] 66 mm[Hg] eCW1 ([facility]) Patient Treatment Plan of Care Planned Activity Planned Date Details Description Data Source (s) Walker - 12/09/2020 12:00:00 AM EDT e CW1 ([facility]) Edd - 12/09/2020 12:00:00 AM EDT e CW1 ([facility]) Edd - 12/09/2020 12:00:00 AM EDT e CW1 ([facility])
--- OUTSIDE RECORDS SUMMARY | 2021-07-02 05:14 | CCD ---
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 Active confirmed 94334 5007 Problem PAC (premature atrial contraction) I49.1 Activ e confirmed 132868186 Problem Controlled depression F32.9 Active confirmed 57874357 Problem 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 A ctive confirmed 97268200 Problem Chronic diastolic heart failure I50.32 Active confi rmed 911287309 Problem Frequent falls R29.6 Active confirmed 85196 2001 Problem Difficulty walking R26.2 Active confirmed 2 49606313 Problem Microscopic hematuria R31.2 Active confirmed 693576980 followed by [facility] Problem Age-related osteoporosis without current pathological fracture M81.0 Active confirmed 19730807 Problem Chronic GERD K21.9 Active confirmed 0849222 09 Problem Difficulty sleeping G47.9 Active confirmed 143604245 Problem Collagenous colitis K52.831 Active confirmed 77906595 ALLERGIES Allergen (clinical drug ingredient) Drug/Non Drug Allergy do cumented on EMR Reaction Allergy Type Onset Date Status morphine Morphine Sulfate([facility] Code:[address]-58) Nausea/Vomiti ng Drug Allergy Active Darvon Nausea/Vomiting Drug Allergy Active Darvocet-N 50 Nausea/Vomiting Drug Allergy Acti ve codeine Codeine Sulfate([facility] Code:[address]-19) Nausea/Vomiting Dr irma Allergy Active ENCOUNTERS from 1935 to 2021-06-30 Encounter Location Date Provider Diagnosis [facility] Michaela ROLY [phone] [place] [phone] Jun, Earlene Schoenemradha IMMUNIZATIONS Vaccine Route Administration [...] Education Language: Question Answer Notes Languages spoken: Albanian Hindu: Question Answer Notes Hindu 03 Worship Sexual Hx: Question Answer Notes Had sex [...] Information RESULTS No Results REASON FOR VISIT positive daughter MEDICAL (GENERAL) HISTORY Type Description Date Medical [...] History fx right wrist 07/2018 Hospitalization History [facility] Depression Hospitalization History GI Bleed/EGD nml [...] Details Provider Name:Earlene Mtz, 2022-01 01:00:00 PM, [address], , [place], [id number], Insurance Providers Payer Name Payer Address Payer Phone Insured Name Patient Relati onship to Insured Coverage Start Date Coverage End Date [employer] [address] [facility] [id number] [place] [facility] MEDICARE Part A and B [address] [facility] [address] [place] self
--- OUTSIDE RECORDS SUMMARY | 2021-07-02 05:20 | CCD ---
Author Author [facility] Organization [facility] Address Unknown Phone Unavailable Care Team Providers Care [employer] Psychologist Name Role Phone Ramirez, Eb PA Unavailable [...] Unavailable Fortunato Hernandez MD Unavailable Unavailable Fortunato Hernandze MD Unavailable Unavailable Fortunato Hernandez MD Unavailable [...] Unavailable Schoeneman, Earlene DO Unavailable Unavailable Schoeneman, [place] DO Unavailable Unavailable Schoeneman, [place] DO Unavailable Unavailable Schoeneman, Earlene DO Unavailable Unavailable Schoeneman, [place] DO Unavailable Unavailable Schoeneman, [place] DO Unavailable Unavailable Schoeneman, Earlene DO Unavailable Unavailable Schoeneman, [place] DO Unavailable Unavailable Schoeneman, [place] DO Unavailable Unavailable Schoeneman, Earlene DO Unavailable Unavailable Schoeneman, Earlene DO Unavailable Unavailable Schoeneman, Earlene DO Unavailable Unavailable Schoeneman, [place] DO Unavailable Unavailable Schoeneman, Earlene DO Unavailable Unavailable Schoeneman, [place] DO Unavailable Unavailable Schoeneman, Earlene DO Unavailable Unavailable Schoeneman, [place] DO Unavailable Unavailable Schoeneman, Earelne DO Unavailable Unavailable Schoeneman, Earlene DO Unavailable Unavailable Schoeneman, [place] DO Unavailable Unavailable Schoeneman, Earlene DO Unavailable Unavailable Schoeneman, Earlene DO Unavailable Unavailable Schoeneman, [place] DO Unavailable Unavailable Schoeneman, Earlene DO Unavailable Unavailable Schoeneman, Earlene DO Unavailable Unavailable Schoeneman, Earlene DO Unavailable Unavailable Schoeneman, [place] DO Unavailable Unavailable Schoeneman, Earlene DO Unavailable Unavailable Schoeneman, Earlene DO Unavailable Unavailable Schoeneman, Earlene DO Unavailable Unavailable Schoeneman, [place] DO Unavailable Unavailable Schoeneman, Earlene DO Unavailable Unavailable Schoeneman, Earlene DO Unavailable Unavailable Schoeneman, [place] DO Unavailable Unavailable Schoeneman, Earlene DO Unavailable Unavailable Schoeneman, [place] DO Unavailable Unavailable Schoeneman, [place] DO Unavailable Unavailable Schoeneman, Earlene DO Unavailable Unavailable Schoeneman, Earlene DO Unavailable Unavailable Schoeneman, [place] DO Unavailable Unavailable Gil Corrigan MD, FACS [...] MD, FACS Unavailable Unavailable Ibarra Malik, Gil aMrcos MD, FACS Unavailable Unavailable Ibarra Malik, Gil [...] is protected by Article 27-F of the [facility] Public Health law. If you continue you may have access to information: Regarding HIV / AIDS; Provided by facilities licensed or operated by the [facility] Office of Mental Health; or Provided by the [facility] Office for People With Developmental Disabilities. If such information is present, then the following [facility] mandated warning applies: This information has been [...] law may result in a fine or assisted sentence or both. A general authorization for the release of medical or other information is NOT sufficient authorization for further disc losure. Family History Family Member Name Family Member Gender Family Member Status Date o f Status Description Data Source(s) Unknown Male Problem MEDENT ([facility]) () - Age Unknown Unknown Unknown Problem MEDENT ([facility]) Unknown Unknown Problem MEDENT ([facility]) Encounters Encounter Providers Location Date Indications Data Source(s ) Outpatient Attender: Eb VALDEZ 07/01/2021 01:01:00 PM [facility] Outpatient Attender: Eb VALDEZ 07/01/2021 12:00:00 PM [facility] Emergency Attender: Eb Guadarrama: NAYELI CAZARES EMERGENCY ROOM-ER 07/01/2021 11:31:00 AM EST - 07/01/2021 03:15:00 PM [facility] Patient discharged. [place] [address] [facility] [address] 06/30/2021 12:00:00 AM EST eCW1 ([facility]) Outpatient Attender: Fortunato Hagenerrer: JOSUÉ BARNARD MD [id number] 06/17/2021 12:32:58 AM EST [facility] [place] [address] [facility] [address] 06/04/2021 12:00:00 AM EDT eCW1 ([facility]) [place] [address] [facility] [address] 03/10/2021 12:00:00 AM EDT eCW1 ([facility]) [place] [address] [facility] [address] 03/06/2021 12:00:00 AM EDT eCW1 ([facility]) [place] [address] [facility] [address] 02/07/2021 12:00:00 AM EDT eCW1 ([facility]) [place] [address] [facility] [address] 02/02/2021 12:00:00 AM EDT eCW1 ([facility]) [place] [address] [facility] [address] 01/29/2021 12:00:00 AM EDT eCW1 ([facility]) [place] [address] [facility] [address] 01/26/2021 12:00:00 AM EDT eCW1 ([facility]) Outpatient Attender: Earlene Braden: NAYELI ESPINO 01/17/2021 01:00:00 PM [facility] [place] [address] [facility] [address] 01/16/2021 12:00:00 AM EDT eCW1 ([facility]) [place] [address] [facility] [address] 01/16/2021 12:00:00 AM EDT eCW1 ([facility]) Outpatient [address] [facility] [address] 01/15/2021 12:00:00 AM EDT eCW1 ([facility]) [place] [address] [facility] [address] 01/06/2021 12:00:00 AM EDT eCW1 ([facility]) [place] [address] [facility] [address] 01/03/2021 12:00:00 AM EDT eCW1 ([facility]) [place] [address] [facility] [address] 01/02/2021 12:00:00 AM EDT eCW1 ([facility]) Outpatient [address] [facility] [address] 12/24/2020 12:00:00 AM EDT [facility] [place] [address] [facility] [address] 12/09/2020 12:00:00 AM EDT [facility]CW1 [facility] [place] [address] [facility] [address] 12/09/2020 12:00:00 AM EDT [facility]CW1 [facility] [place] [address] [facility] [address] 12/06/2020 12:00:00 AM EDT eCW1 [facility]) [place] [address] [facility] [address] 10/29/2020 12:00:00 AM EDT eCW1 [facility]) [place] [address] [facility] [address] 10/07/2020 12:00:00 AM EST eCW1 [facility]) [place] [address] [facility] [address] 09/04/2020 12:00:00 AM EST eCW1 [facility]) <td ID="encounterTypeDescriptionID0">1 Y ear Follow-Up & Testing</td><td>Hemant Solano MD, FACS</td><td>Hemant Solano MD [facility]</td><td>05/08/2020</td><td>12:52PM</td><td>1:45PM</td><td><content ID="encounterDiagnosisID0-0">Macular Degeneration Nonexudative Bilateral Early Dry Stage</content>, <content ID="encounterDiagnosisID0-1">Posterior Capsule Opacification Eccentric Capsule Both Eyes</content>, <content ID="encounterDiagnosisID0-2">Pseudophakia</content>, <content ID="encounterDiagnosisID0-3">Dry Eye Syndrome Both Eyes</content></td>Outpatient Attender: Hemant Malik MD, FACS Hemant Solano MD [facility] 05/08/2020 12:52:00 PM EDT - 05/08/2020 01:45:00 PM EDT Macular Degeneration Nonexudative Bilate ral Early Dry StagePseudophakiaPosterior Capsule Opacification Eccentric Capsule Both EyesDry Eye Syndrome Both Eyes GELA (Hemant Malik MD [facility]) Macular Degeneration Nonexudative Bilate ral Early Dry Stage Pseudophakia Posterior Capsule Opacification Eccentri c Capsule Both Eyes Dry Eye Syndrome Both Eyes Medications Medication Brand Name Start Date Product Form Dose Route Admi nistrative Instructions Pharmacy Instructions Status Indications Reaction Description Data Source(s) Walker - Walker - 12/09/2020 12:00:00 AM EDT activ e eCW1 ([facility]) Walker - Walker - 12/09/2020 12:00:00 AM EDT activ e Walker - eCW1 ([facility]) Walker - Walker - 12/09/2020 12:00:00 AM EDT activ e Walker - eCW1 ([facility]) Walker - Walker - 12/09/2020 12:00:00 AM EDT activ e Walker - eCW1 ([facility]) Walker - Walker - 12/09/2020 12:00:00 AM EDT activ e Walker - eCW1 ([facility]) Walker - Walker - 12/09/2020 12:00:00 AM EDT activ e Walker - eCW1 ([facility]) Walker - Walker - 12/09/2020 12:00:00 AM EDT activ e Walker - eCW1 ([facility]) Walker - Walker - 12/09/2020 12:00:00 AM EDT activ e Walker - eCW1 ([facility]) Walker - Walker - 12/09/2020 12:00:00 AM EDT activ e Walker - eCW1 ([facility]) Walker - Walker - 12/09/2020 12:00:00 AM EDT activ e Walker - eCW1 ([facility]) Walker - Walker - 12/09/2020 12:00:00 AM EDT activ e Walker - eCW1 ([facility]) Walker - Walker - 12/09/2020 12:00:00 AM EDT activ e Walker - eCW1 ([facility]) Walker - Walker - 12/09/2020 12:00:00 AM EDT activ e Walker - eCW1 ([facility]) Walker - Walker - 12/09/2020 12:00:00 AM EDT activ e Walker - eCW1 ([facility]) Walker - Walker - 12/09/2020 12:00:00 AM EDT activ e Walker - eCW1 ([facility]) Walker - Walker - 12/09/2020 12:00:00 AM EDT activ e Walker - eCW1 ([facility]) Walker - Walker - 12/09/2020 12:00:00 AM EDT activ e Walker - eCW1 ([facility]) Walker - Walker - 12/09/2020 12:00:00 AM EDT activ e Walker - eCW1 ([facility]) Insurance Providers Payer name Policy type / Coverage type Policy ID Covered republican ID Covered republican's relationship to morrissey Policy Morrissey Plan Information MEDICARE A [id number] Self [id number] A MEDICARE 4 [id number] 1 [id number] A MEDICARE 4 [id number] 1 [id number] A [facility] 2 [id number] 1 [id number] MEDICARE [id number] SP [id number] A Medicare Part B [facility] Other 0 [id number] Self 0 Medicare Medicare Primary [id number] Self [employer] F [id number] SELF [id number] Medicare C [id number] SELF [id number] [employer] F [id number] SELF [id number] Medicare C [id number] SELF [id number] A [employer] BENEFIT PLAN U [id number] Self [id number] [facility] C [id number] SELF [id number] [employer] BENEFIT PLAN [id number] S [id number] Aetna [facility] Secondary [id number] Medicare Primary [id number] MAILHANDERS BENEFIT PLAN [id number] S [id number] ANSI-Medicare Part B [id number] ANSI-Commercial [id number] ANSI-Commercial [id number] ANSI-Medicare Part B [id number] ANSI-Commercial [id number]-[id number] ANSI-Medicare Part B [id number] ANSI-Commercial [id number] ANSI-Medicare Part B [id number] ANSI-Medicare Part B [id number] ANSI-Commercial [id number]-c8b3-4226-66q2-[id number] [id number]-b5c6-3160-47c0-qzz65n6nhemr ANSI-Commercial [id number]-[id number]-bm5z-[id number] ANSI-Medicare Part B [id number] MEDICARE PART B-[facility] [id number] 18 [id number] ANSI-Commercial [id number]-[id number] ANSI-Medicare Part B [id number] ANSI-Medicare Part B [id number] ANSI-Commercial [id number]-8241-[id number] [id number]-4034-h179-qjnjzf67l326 ANSI-Medicare Part B [id number] ANSI-Commercial 84g8a74c-2d21-4z97-[id number] 71e4l03f-3t93-0b28-q011-0g5x3wbdu697 ANSI-Medicare Part B [id number] ANSI-Commercial i0lnw09t-4r31-4s42-0vz8-rx1w4o414738 p7ifk43h-0y87-3z86-6wy9-bg2h5h192265 ANSI-Commercial [id number]-2734-y2se202e9525 [id number]-2170-d2be999g1455 ANSI-Medicare Part B [id number]-03h9-7c9x-[id number] ANSI-Medicare Part B [id number] ANSI-Commercial j089u7dy-272q-7uh2-gk81-33x25de16lkw d400w4ci-701g-7ua6-pq64-05y55xy86ybq ANSI-Commercial p90801jz-h795-5uoa-8h6u-3mi4j5915q02 c42212ca-j103-6mxr-4p5w-5ma3z3079t56 ANSI-Medicare Part B [id number]-[id number] ANSI-Commercial [id number]-95qp-0n66-61758qgz2681 56788jr6-0v8m-40zv-3d43-39041ncg5655 ANSI-Medicare Part B [id number]-8b8o-3i1c-kk2u-51t526l90g2b ANSI-Medicare Part B [id number] [id number]-u661-99bu-q7dv-i4278u1u2x94 ANSI-Commercial r7o641l7-r339-5kx4-d5cu-kc43naf27t8i l0x478u0-l270-1dy1-t7rz-nf29tmg96g3q ANS-Medicare Part B [id number]-[id number] ANSI-Commercial mm84o6bt-d930-34b5-5511-8h55c515838n xw83k8iq-r447-89b1-2489-6y21t688396r ANS-Medicare Part B [id number]2i23812y55 ANSI-Commercial u200hi38-6l53-82wk-c7a5-et5b7718ci1c i629mk23-3h33-40gz-o5s3-po5j1308tx3o ANS-Medicare Part B [id number] 522pc1n6-c583-5816-9er2-00d792210i92 ANSI-Commercial 70500goa-e2a2-75v4-ky7r-[id number] 81898hoo-v3r3-59u6-oa7o-g14p84379634 Aetna (pr) [facility] Part B [id number] ..410760.3.227.99 .991.613665.0 Self [id number] [place] Primary [id number] ...[id number] Self [id number] [facility] BENEFIT PLAN [id number] Aetna (pr) Medigap Part B [id number] ..889377.3.227.99 .991.157310.0 Self [id number] Medicare [place] Medicare Primary [id number]..[id number]38.0 Self [id number] ANSI-Commercial [id number]-j881-6838l63805fr [id number]-[id number] ANSI-Medicare Part B [id number]-c60q1cp7t265 ANS-Medicare Part B [id number] ANSI-Commercial 499n6u0r-u40n-721j-8e74-xp4ej1q3oudi 908a1k6i-f83t-868p-1q20-fo9ul1b4rdwt Medicare [place] Medicare Primary [id number] ...[id number] Self [id number] ANSI-Medicare Part B [id number]-[id number] ANSI-Commercial 02c7xa37-3224-4ckh-9242-810370wv7y84 95r6hn96-9211-5kwv-0524-964430ai0m73 Aetna Medigap Part B [id number] 2..1.978934.3.227.99.104.331 115.0 Self [id number] Medicare [place] Medicare Primary [id number] ..[id number]466.0 Self [id number] MHBP Medigap Part B [id number] 2..1.206244.3.227.99.104.33 1115.0 Self [id number] [employer] [id number].6619.91252.0 Self [id number] Medicare [place] Medicare Primary [id number].6619.51148.0 Self [id number] ANSI-Commercial [id number]-o5m0-84v69sp9fa1r [id number]-s1m9-75e98fs1zw6u ANSI-Medicare Part B [id number] AETNA MEDICARE [id number] SP [id number] MEDICARE [id number] SP [id number] A ANSI-Commercial [id number]-0fhd-25xj-987c-[id number] 78l1400u-2tpn-82cd-568s-pq83556k99cc ANSI-Medicare Part B [id number] [facility] Part B [id number] 115.0 Self [id number] Medicare [place] Medicare Primary [id number]4.700406.0 Self [id number] UNAVAILABLE UNAVAILA BLE AETNA HEA [id number] S [id number] MEDICARE MCA [id number] S [id number] 2A MEDICARE MCA [id number] S [id number] Medicare [place] Medicare Primary [id number] Self [id number] [employer] BENEFIT PLAN [id number] SP [id number] MA[employer]LERS BENEFIT PLAN [id number] SP [id number] [facility] HEALTH PLAN [id number] SP [id number] MA[employer] BENEFIT PLAN [id number] SP [id number] [facility] HEALTH CARE OPTIONS [id number] SP [id number] [facility] PLAN [id number] SP [id number] ANSI-Medicare Part B [id number] ANSI-Commercial [id number]-v7c7-[id number]-50a9-0463-w1i0-[id number] SELF PAY ONLY [id number] SP [id number] ANSI-Commercial [id number]-[id number] ANSI-Medicare Part B [id number] [facility] [id number] SP [id number] [facility] MAIL HANDLERS BENEF O [id number] S [id number] MEDICARE C [id number] S [id number] A Medicare [place] Medicare Primary [id number] Self [id number] [employer] Medigap Part B [id number] .[id number].0 Self [id number] Medicare [place] Medicare Primary [id number] Self [id number] [employer] BENEFIT PLAN [id number] SP [id number] [employer] [id number].6619.23948.0 Self [id number] Medicare [place] Medicare Primary [id number] Self [id number] MHBP Medigap Part B [id number] Self MHBP O [id number] S [id number] MEDICARE M [id number] S [id number] A MHBP AETNA O [id number] S [id number] [employer] BENEFIT PLAN-RECURRING [id number] 18 [id number] MEDICARE -RECURRING [id number] 18 [id number] SELF PAY 2 UNAVAILABLE 1 UNAVAILA BLE [employer]IL HANDLERS BENFT O [id number] S [id number] MEDICARE OUTPATIENT M [id number] S [id number] [employer] BENEFIT PLAN [id number] SP [id number] MEDICARE [id number] SP [id number] [place] MEDICARE DIVISION [id number] S [id number] MEDICARE [place] [id number] S [id number] [employer] BENEFIT PLAN [id number] SP [id number] Mailhandlers Benefit Plan Other 0 [id number] Self 0 [place] MEDICARE DIVISION [id number] S [id number] MEDICARE - [place] [id number] S [id number] [employer]ERS BENEFIT PLAN [id number] S [id number] [employer]ERS BENEFIT PLAN [id number] S [id number] [place] MEDICARE DIVISION [id number] S [id number] MEDICARE [place] [id number] S [id number] MAILHANDERS BENEFIT PLAN [id number] S [id number] [facility] MEDICARE DIVISION [id number] S [id number] MEDICARE [place] [id number] S [id number] MEDICARE PART A -RECURRING [id number] 18 [id number] [place] BENEFIT PLAN-RECURRING [id number] Problems, Conditions, and Diagnoses Code Display Name Description Problem Type Effective Dates Data Source(s) R92.8 Other abnormal and inconclusive findings on diagnostic imaging of breast OTH ABN AND INCONCLUSIVE FINDINGS ON DX IMAGING OF Diagnosis 05:19:00 PM [facility] Z12.31 Encounter for screening mammogram for ma lignant neoplasm of breast ENCNTR SCREEN MAMMOGRAM FOR MALIGNANT NE Diagnosis 01/17/2021 05:19:00 PM [facility] N63.20 UNSPECIFIED LUMP IN THE LEFT BREAST, UNS PECIFIED QUADRANT UNSPECIFIED LUMP IN THE LEFT BREAST, UNSPECIFIED QUADRANT Diagnosis 01/18/20 21 05:19:00 PM [facility] I50.32 [id number] Chronic diastolic heart failure Problem 02/02/2021 12:00:00 AM EDT eCW1 ([facility]) R29.6 [id number] Frequent falls Problem 12/24/2020 12:00:00 A M EDT eC1 ([facility]) F32.9 [id number] Controlled depression Problem 10/29/2020 12: 00:00 AM EDT eCW1 ([facility]) [id number] Ptosis of eyebrow (finding) Eyebrow Ptosis Finding 05/08/2020 01:15:00 PM EDT GELA (Hemant Malik MD [facility]) [id number] 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 Problem 01:13:00 PM EDT GELA (Hemant Malik MD [facility]) Surgeries/Procedures Procedure Description Date Indications Data Source(s) ECG ROUTINE ECG W/LEAST 12 LDS W/I&R 12/24/2020 12:00: 00 AM EDT eCW1 ([facility]) Surgical / procedural history Knee Replacement right side Surgical / procedural history Knee Replacement right side 05/08/2020 12:00:00 AM EDT GELA (Hemant Malik MD [facility]) COMPUTERIZED OPHTHALMIC IMAGING RETINA Scodi Retina, w ith interpretation and report ([place]) 05/08/2020 12:00:00 AM EDT GELA (Shine Malik MD [facility]) Comprehensive eye exam established patient (25) Pattie hensive eye exam established patient (25) 05/08/2020 12:00:00 AM EDT GELA (Hemant Malik MD [facility]) Results ID Date Data Source [id number] 07/01/2021 05:06:00 PM EST [facility] Patient: EDISON CALDERON Observation Report - Physicians/Mid Levels [facility].VisitID: [id number] [place] [address] [phone], FRegistratrinity health Date/Time: 07/01/2021 10:32 Weight:65.7 kg (S). Height/Length:63 inches (S). BMI:25.7 PAST HISTORYMedications:Kagaifbca-Iaiuneitx-Mffrnavtwm Oral 15mg, daily, last dose yesterday am.TraZODone [...] rce(s) Supporting Document(s) ID Date Data Source [id number] 07/01/2021 01:28:00 PM [facility] [...] rce(s) Supporting Document(s) ID Date Data Source [id number] 07/01/2021 12:40:00 PM EST [facility] TSYSORDER [id number] Name Value Range Interpretation Code Description Data Mariela rce(s) Supporting Document(s) LACTIC ACID 0.9 mmol/L 0.4-2.0 [facility] ID Date Data Source [id number] 07/01/2021 12:38:00 PM EST [facility] TSYSORDER [id number] Name Value Range Interpretation Code Description Data Mariela rce(s) Supporting Document(s) Adenovirus Not Detected Detected Not [facility] Coronavirus 229E Not Detected Detected Not [facility] Coronavirus HKU1 Not Detected Detected Not [facility] Coronavirus NL63 Not Detected Detected Not [facility] Coronavirus OC43 Not Detected Detected Not [facility] Sars Cov 2 DETECTED Detected Not [facility] Negative results do not preclude SARS-Co V-2 infection andshould not be used as the sole basis for treatment or otherpatient management decisions. Negative SARS-CoV-2 resultsmust be combined with clinical observations, patienthistory, and epidemiological information. Human Metapneumovirus Not Detected Detected Not [facility] Human Rhinovirus Not Detected Detected Not [facility] Influenza A Not Detected Detected Not [facility] Influenza B Not Detected Detected Not [facility] Parainfluenza Virus 1 Not Detected Detected Not [facility] Parainfluenza Virus 2 Not Detected Detected Not [facility] Parainfluenza Virus 3 Not Detected Detected Not [facility] Parainfluenza Virus 4 Not Detected Detected Not [facility] Respiratory Syncytial Virus Not Detected Detected Not [facility] Bordetella parapertus ([id number]) Not Detected Detected Not [facility] Bordetella pertussis (ptxP) Not Detected Detected Not [facility] Chlamydia pneumoniae Not Detected Detected Not [facility] Mycoplasma pneumoniae Not Detected Detected Not [facility] The results of the respiratory panel [...] results have been determined by using the [employer] system.FilmArray is an automated in vitro diagnostic system thatutilizes nested multiplex Polymerase Chain Reaction (PCR)and high-resolution melting analysis to detect and identifymultiple nucleic acid targets from clinical specimens. ID Date Data Source [id number] 07/01/2021 12:08:00 PM [facility] TSYSORDER [id number] Name Value Range Interpretation Code Description Data Mariela rce(s) Supporting Document(s) PARTIAL THROMBOPLASTIN TIME 33.2 SECONDS 21.3-29.7 H [facility] ID Date Data Source [id number] 07/01/2021 12:08:00 PM [facility] TSYSORDER [id number] Name Value Range Interpretation Code Description Data Mariela rce(s) Supporting Document(s) PROTHROMBIN TIME (PATIENT) 10.6 SECONDS 9.1-11.3 [facility] INR 1.04 0.87-1.06 [facility] ID Date Data Source [id number] 07/01/2021 11:51:00 AM [facility] TSYSORDER [id number] Name Value Range Interpretation Code Description Data Mariela rce(s) Supporting Document(s) WHITE BLOOD COUNT 2.4 K/mm3 4.0-10.0 L [facility] al RED BLOOD COUNT 3.88 M/mm3 4.00-5.50 L [facility] HEMOGLOBIN 10.5 gm/dL 12.0-16.0 L [facility] HEMATOCRIT 32.6 % 36.0-48.8 L [facility] MEAN CELL VOLUME 84.0 fl 80-96 [facility] MEAN CORPUSCULAR HEMOGLOBIN 27.1 pg 27.0-31.0 [facility] MEAN CORPUSCULAR HGB CONC 32.2 g/dl 32.0-36.0 [facility] RED CELL DISTRIBUTION WIDTH 14.7 % 10.0-14.5 H [facility] PLATELET COUNT 154 K/mm3 172-450 L [facility] MEAN PLATELET VOLUME 10.8 fl 9.0-13.0 [facility] pital GRAN % 77.9 % 50-80.0 [facility] IG% 0.4 % 0.0-0.2 H [facility] LYMPH % 12.1 % 25.0-50.0 L [facility] MONO % 9.2 % 2.0-10.0 [facility] EOS % 0.0 % 0-5.0 [facility] BASO % 0.4 % 0.0-2.0 [facility] GRAN # 1.9 K/mm3 2.0-8.00 L [facility] IG# 0.0 K/mm3 0.0-0.2 [facility] LYMPH # 0.3 K/mm3 1.0-5.0 L [facility] MONO # 0.2 K/mm3 0.10-1.20 [facility] EOS # 0.0 K/mm3 0.0-0.5 [facility] BASO # 0.0 K/mm3 0.0-0.2 [facility] ID Date Data Source [id number] 07/01/2021 12:10:00 PM [facility] TSYSORDER [id number] Name Value Range Interpretation Code Description Data Mariela rce(s) Supporting Document(s) LIPASE 146 U/L 73-393 [facility] ID Date Data Source [id number] 07/01/2021 12:10:00 PM [facility] TSYSORDER [id number] Name Value Range Interpretation Code Description Data Mariela rce(s) Supporting Document(s) GLUCOSE 111 mg/dL 74-106 H [facility] BLOOD UREA NITROGEN 19 mg/dL 7-18 H [facility] ital CREATININE 1.10 mg/dl 0.55-1.02 H [facility] SODIUM 139 mmol/L 136-145 [facility] POTASSIUM 3.6 mmol/L 3.5-5.1 [facility] CHLORIDE 101 mmol/L 98-107 [facility] CO2 29 mmol/L 21-32 [facility] CALCIUM 7.8 mg/dL 8.5-10.1 L [facility] ANION GAP 9.0 mmol/L 5-12 [facility] GLOMERULAR FILTRATION RATE 47 mL/min [facility] GFR IS CALCULATED IN mL/min/1.73m2 JOSÉ LUIS L FUNCTION: >90MILDLY DECREASED: 60-89MILDY TO MODERATELY DECREASED: 45-59 MODERATELY TO SEVERELY DECREASED: 30-44SEVERELY DECREASED: 15-29RENAL FAILURE: <15 AST 21 U/L 15-37 [facility] RESULT TO FOLLOW. ALT 21 U/L 14-59 [facility] RESULT TO FOLLOW.07/01/21 1537: ALT pre viously reported as: U/L RESULT TO FOLLOW. ALKALINE PHOSPHATASE 67 U/L 46-116 [facility] pital TOTAL BILIRUBIN 0.5 mg/dL 0.2-1.0 [facility] TOTAL PROTEIN 6.7 g/dL 6.4-8.2 [facility] ALBUMIN 3.1 gm/dL 3.4-5.0 [facility] ID Date Data Source [id number] 01/17/2021 02:19:00 PM EDT [facility] l DATE OF EXAMINATION: 01/17/2021 13:02 EDT MAMMO DIAG ROSA WITH CAD HISTORY: Screening Not provided Comparison is made to prior study dated none. 2-D bilateral digital mammogram in the CC and MLO planes were performed withsupplemental 3-D tomosynthesis of both breasts. The images were analyzed through the latest version of the [employer] computer aideddiagnosis system. The patient states that [...] Never Smoker completed Never S moker eCW1 ([facility]) Smoking 06/03/2021 12:00:00 AM EDT Never Smoker completed Never S moker eCW1 ([facility]) Smoking 01/15/2021 12:00:00 AM EDT Never Smoker completed Never S moker eCW1 ([facility]) Smoking 01/15/2021 12:00:00 AM EDT Never Smoker completed Never S moker eCW1 ([facility]) Smoking 01/15/2021 12:00:00 AM EDT Never Smoker completed Never S moker eCW1 ([facility]) Smoking 01/15/2021 12:00:00 AM EDT Never Smoker completed Never S moker eCW1 ([facility]) Smoking 01/15/2021 12:00:00 AM EDT Never Smoker completed Never S moker eCW1 ([facility]) Smoking 01/15/2021 12:00:00 AM EDT Never Smoker completed Never S moker eCW1 ([facility]) Smoking 01/15/2021 12:00:00 AM EDT Never Smoker completed Never S moker eCW1 ([facility]) Smoking 01/15/2021 12:00:00 AM EDT Never Smoker completed Never S moker eCW1 ([facility]) Smoking 01/15/2021 12:00:00 AM EDT Never Smoker completed Never S moker eCW1 ([facility]) Smoking 12/24/2020 12:00:00 AM EDT Never Smoker completed Never S moker eCW1 ([facility]) Smoking 12/24/2020 12:00:00 AM EDT Never Smoker completed Never S moker eCW1 ([facility]) Smoking 12/24/2020 12:00:00 AM EDT Never Smoker completed Never S moker eCW1 ([facility]) Smoking 12/24/2020 12:00:00 AM EDT Never Smoker completed Never S moker eCW1 ([facility]) Smoking 12/09/2020 12:00:00 AM EDT Never Smoker completed Never S moker eCW1 ([facility]) Smoking 12/09/2020 12:00:00 AM EDT Never Smoker completed Never S moker eCW1 ([facility]) Smoking 12/09/2020 12:00:00 AM EDT Never Smoker completed Never S moker eCW1 ([facility]) Smoking 10/29/2020 12:00:00 AM EDT Never Smoker completed Never S moker eCW1 ([facility]) Smoking 05/08/2020 02:13:53 PM EDT Never smoked tobacco (findi ng) completed Never smoked tobacco (finding) GELA (Hemant Malik MD [facility]) Vital Signs ID Date Data Source UNK Name Value Range Interpretation Code Description Data Source(s) Body weight 155 [lb_av] 155 [lb_av] eCW1 ([facility]) Body height 63.5 [in_i] 63.5 [in_i] eCW1 ([facility]) Body mass index (BMI) [Ratio] 27.02 kg/m2 27.02 kg/m2 eCW1 ([facility]) Heart rate 80 /min 80 /min eCW1 ([facility]) Respiratory rate 18 /min 18 /min eCW1 ([facility]) Body temperature 97.1 [degF] 97.1 [degF] eCW1 ( [facility]) Systolic blood pressure 127 mm[Hg] 127 mm[Hg] e CW1 ([facility]) Diastolic blood pressure 72 mm[Hg] 72 mm[Hg] eCW1 ([facility]) Body weight 155 [lb_av] 155 [lb_av] eCW1 ([facility]) Body height 63.5 [in_i] 63.5 [in_i] eCW1 ([facility]) Body mass index (BMI) [Ratio] 27.02 kg/m2 27.02 kg/m2 eCW1 ([facility]) Heart rate 77 /min 77 /min eCW1 ([facility]) Respiratory rate 18 /min 18 /min eCW1 ([facility]) Body temperature 97.7 [degF] 97.7 [degF] eCW1 ( [facility]) Systolic blood pressure 111 mm[Hg] 111 mm[Hg] e CW1 ([facility]) Diastolic blood pressure 72 mm[Hg] 72 mm[Hg] eCW1 ([facility]) Body weight 161.12 [lb_av] 161.12 [lb_av] eCW1 ([facility]) Body height 63.5 [in_i] 63.5 [in_i] eCW1 ([facility]) Body mass index (BMI) [Ratio] 28.09 kg/m2 28.09 kg/m2 eCW1 ([facility]) Heart rate 71 /min 71 /min eCW1 ([facility]) Respiratory rate 16 /min 16 /min eCW1 ([facility]) Body temperature 96.8 [degF] 96.8 [degF] eCW1 ( [facility]) Systolic blood pressure 118 mm[Hg] 118 mm[Hg] e CW1 ([facility]) Diastolic blood pressure 75 mm[Hg] 75 mm[Hg] eCW1 ([facility]) Body weight 155 [lb_av] 155 [lb_av] eCW1 ([facility]) Body height 63.5 [in_i] 63.5 [in_i] eCW1 ([facility]) Body mass index (BMI) [Ratio] 27.02 kg/m2 27.02 kg/m2 eCW1 ([facility]) Heart rate 85 /min 85 /min eCW1 ([facility]) Respiratory rate 18 /min 18 /min eCW1 ([facility]) Body temperature 97.6 [degF] 97.6 [degF] eCW1 ( [facility]) Systolic blood pressure 111 mm[Hg] 111 mm[Hg] e CW1 ([facility]) Diastolic blood pressure 66 mm[Hg] 66 mm[Hg] eCW1 ([facility]) Patient Treatment Plan of Care Planned Activity Planned Date Details Description Data Source (s) Walker - 12/09/2020 12:00:00 AM EDT e CW1 ([facility]) Edd - 12/09/2020 12:00:00 AM EDT e CW1 ([facility]) Edd - 12/09/2020 12:00:00 AM EDT e CW1 ([facility])
[2021-07-02 05:33] LABS: RSV AMPLIFICATION NEGATIVE (NEGATIVE)
[2021-07-02] MEDS ORDERED: REMDESIVIR 200 MG in NS 250 ML IV ONE (06:00)
[2021-07-02 07:26] LABS: HEMATOCRIT 28.6 % (36.0-47.0); HEMOGLOBIN 9.1 g/dl (12.0-15.5); LYMPH # 0.5 10^3/uL (1.5-5.0); LYMPH % 23.4 % (24.0-44.0); MEAN CORPUSCULAR HEMOGLOBIN 27.5 pg (27.0-33.0); MEAN CORPUSCULAR HGB CONC 31.8 g/dl (32.0-36.5); MEAN CORPUSCULAR VOLUME 86.4 fl (80.0-96.0); MONO # 0.2 10^3/uL (0.0-0.8); MONO % 9.9 % (2.0-8.0); NEUTROPHILS # 1.3 10^3/uL (1.5-8.5); NEUTROPHILS % 66.2 % (36.0-66.0); PLATELET COUNT, AUTOMATED 117 10^3/uL (150-450); RED BLOOD COUNT 3.31 10^6/uL (4.00-5.40); WHITE BLOOD COUNT 1.9 10^3/uL (4.0-10.0)
[2021-07-02] MEDS ORDERED: KCL 10MEQ/100ML SWI (KRUN) 10 MEQ in IV 1 EA IV ONE ×2 (07:35→10:40)
[2021-07-02 07:38] LABS: INR 1.09; PROTHROMBIN TIME 14.6 SECONDS (12.7-14.5)
[2021-07-02 07:39] LABS: PARTIAL THROMBOPLASTIN TIME 45.2 SECONDS (25.9-37.0)
[2021-07-02 07:52] LABS: ALBUMIN 2.2 GM/DL (3.2-5.2); ALT/SGPT 13 U/L (12-78); BILIRUBIN,DIRECT 0.2 MG/DL (0.0-0.2); BILIRUBIN,TOTAL 0.4 MG/DL (0.2-1.0); BLOOD UREA NITROGEN 14 MG/DL (7-18); C REACTIVE PROTEIN QUANTITATIV 3.88 MG/DL (0.00-0.30); CALCIUM LEVEL 7.1 MG/DL (8.8-10.2); CARBON DIOXIDE LEVEL 27 MEQ/L (21-32); CHLORIDE LEVEL 106 MEQ/L (98-107); CREATININE FOR GFR 0.78 MG/DL (0.55-1.30); FERRITIN 102 NG/ML (8-252); GLOMERULAR FILTRATION RATE > 60.0 (>32); GLUCOSE, FASTING 100 MG/DL (70-100); LDH LACTATE DEHYDROGENASE 254 U/L (84-246); MAGNESIUM LEVEL 1.6 MG/DL (1.8-2.4); POTASSIUM SERUM 2.8 MEQ/L (3.5-5.1); SODIUM LEVEL 140 MEQ/L (136-145); TOTAL PROTEIN 5.4 GM/DL (6.4-8.2)
[2021-07-02] MEDS ORDERED: POTASSIUM CHLORIDE 10MEQ SR TABLET PO ONE ×2 (08:00→10:40)
[2021-07-02] MEDS ORDERED: SODIUM CHLORIDE 0.9% INJ 10 ML SYR IV ONE (08:00)
[2021-07-02 08:02] LABS: MB/CK RELATIVE INDEX 1.24 (< OR =4)
[2021-07-02] MEDS: dexameTHASONE 4 MG/ML 1ML VIAL (J1100 PER 1MG) IV SCH (08:15)
[2021-07-02] MEDS: ENOXAPARIN 30MG/0.3ML SYRINGE (J1650 PER 10MG) SC SCH (08:15)
[2021-07-02] MEDS: DOXYCYCLINE HYCLATE 100 MG in D5W MINI-BAG PLUS 100 ML IV SCH ×2 (08:15→18:58)
[2021-07-02] MEDS: KCL 10MEQ/100ML SWI (KRUN) 10 MEQ in IV 1 EA IV SCH ×2 (08:16→09:35)
[2021-07-02] MEDS: DOCUSATE SODIUM 100MG CAPSULE PO SCH ×2 (08:18→20:39)
[2021-07-02 08:25] LABS: PHOSPHORUS LEVEL 3.6 MG/DL (2.5-4.9)
[2021-07-02] MEDS: OMEPRAZOLE 20 MG CAP PO SCH (09:00)
[2021-07-02] MEDS: ZINC SULFATE 220 MG CAP PO SCH (09:00)
[2021-07-02] MEDS: ASCORBIC ACID 500 MG TAB PO SCH (09:00)
[2021-07-02] MEDS ORDERED: ROSUVASTATIN 10 MG TAB (CRESTOR) PO SCH (09:00)
[2021-07-02] MEDS: CLOTRIMAZOLE 1% TOPICAL CREAM 30GM TOP SCH ×2 (09:00→20:40)
[2021-07-02] MEDS ORDERED: LOSARTAN 50MG TABLET PO SCH (09:00)
[2021-07-02] MEDS ORDERED: TAMSULOSIN 0.4 MG CAP PO SCH (09:00)
[2021-07-02] MEDS ORDERED: MAGNESIUM OXIDE 400MG TAB (MAG-OX) PO ONE ×3 (09:00→16:20)
[2021-07-02] MEDS: ASPIRIN 81MG ENTERIC TABLET PO SCH (09:00)
[2021-07-02] MEDS ORDERED: POTASSIUM CHLORIDE 10MEQ SR TABLET PO SCH (09:00)
--- NOTE | 2021-07-02 09:02 | ECGEPIP ---
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
[2021-07-02] MEDS: cefTRIAXone SOD 1 GM in D5W MINI-BAG PLUS 50 ML IV SCH (09:35)
[2021-07-02] MEDS ORDERED: ALBUTEROL 90 MCG/ACT 8GM HFA INHALER INH PRN (09:35)
--- NOTE | 2021-07-02 09:44 | IPNPDOC ---
Subjective Date Seen The patient was seen on 07/02/21. Subjective Chief Complaint/HPI Patient was examined at bedside. She told me she started having respiratory symptoms about 7 days ago and was tested positive for COVID on 06/30/2021. No travel history and sick contact includes her daughter. She said the she has fever, chills, productive cough without hemoptysis. She has no nausea, vomiting, abdominal pain, or diarrhea. She was having 3-4 watery diarrhea daily for 3-4 days which had resolved. She reported her lower extremity edema has been chronic and is at baseline General: Denies: Normal Appetite Constitutional: Reports: Chills, Fever, Weakness ENT: Reports: Other Symptoms (No rhinorrhea, loss of smell, or loss of taste) Pulmonary: Reports: Dyspnea, Cough Cardiovascular: Denies: Chest Pain, Palpitations Gastrointestinal: Denies: Nausea, Vomiting, Abdominal Pain, Diarrhea, Hematochezia Genitourinary: Denies: Dysuria, Hematuria Neurological: Reports: Other Symptoms (deneis tingling or loss of sensation); Denies: Numbness Psych: Reports: Anxiety Objective Physical Examination General Exam: Positive: Alert, Cooperative, Mild Distress Eye Exam: Positive: Conjunctiva & lids normal, EOMI, Other Eye Symptoms (Pupil equal and round bilaterally); Negative: Sclera icteric ENT Exam: Positive: Atraumatic, Mucous membr. moist/pink Neck Exam: Positive: Supple Chest Exam: Positive: Clear to auscultation, Normal air movement; Negative: Rales, Rhonchi, Wheezing, Diminished Heart Exam: Positive: Rate Normal, Irregular Rhythm; Negative: Murmurs Telemetry: Positive: Atrial fibrillation Abdomen Exam: Positive: Normal bowel sounds, Soft; Negative: Tenderness Extremity Exam: Positive: Edema (non-pitting); Negative: Cyanosis, Tenderness Skin Exam: Positive: Nl turgor and temperature; Negative: Rash, Breakdown Neuro Exam: Positive: Normal Speech, Strength at 5/5 X4 ext, Normal Tone, Sensation Intact, Cranial Nerves 3-12 NL Psych Exam: Positive: Mental status NL, Anxiety, Memory Intact, Oriented x 3 Assessment /Plan Assessment Patient is a 86 year old female with hyperlipidemia and hypothyroidism who was tested positive for COVID on 06/30/2021 presented to [facility] ED due to generalized weakness. She was tested COVID again and found to have hypoxia requiring 2L of NC oxygenation. Patient was also found to have atrial fibrillation without RVR, hypokalemi, and hypomagnesemia # COVID pneumonia -Productive cough and dyspnea, tested positive for COVID 06/30/2021, symptoms onset around 06/25/2021. Patient did not have COVID vaccination because she does not want to -CTA showed "1. Multifocal ground-glass pulmonary opacities typical of covid-19 pneumonia. No pulmonary embolism." -IV Dexamethasone, Remdesivir, awake pronation, incentive spirometry, and albuterol inhaler PRN. Vitamin C and Zinc Sulfate ordered -Continue Ceftriaxone and Doxycycline for now for possible superimposed bacteria pneumonia although it's less likely -Continue pulse ox monitor, oxygen supplementation to keep O2>90% and above -Continue to trend inflammatory markers. Lovenox SC for DVT prophylaxis #Pancytopenia, likely due to viral infection vs less likely bone marrow etiology -Patient did have history of anemia but leukopenia and thrombocytopenia is new -Patient's peripheral smear showed "Normocytic normochromic anemia. Nucleated red cells are not seen. Leukopenia associated with absolute lymphopenia. Mild thrombocytopenia. No blast forms are identified. Hematology/Oncology consultation may be needed if not done so already." -Continue to monitor CBC with diffs, if pancytopenia worsens, may consult heme/oncology # New-onset atrial fibrillation without RVR, likely due to hypokalemia -A. fib was noted in EKG in this hospital visit which is new compared to prior. Initial Trop of 0.2 likely due to atrial fibrillation, repeat cardiac marker ordered -Patient denies chest pain or palpitation -CHADVASC score of 4, indicating anticoagulation is needed. Will start anticoagulation if patient's atrial fibrillation continues despite electrolyte repletion -Continue tele monitor #Hypomagnesemia due to decreased oral intake -Patient had history of hypomagnesemia -Mag 1.6 this morning -Not on medication at home for hypomagnesemia. Start PO mag 400mg X2 #Hypokalemia due to decreased oral intake and hypomagnesemia -K of 2.8 this morning -S/p 2 of 10meq K run and 40meq KCl, ordered another 20meq KCL #Generalized weakness likely due to dehydration and electrolyte disturbance -K and Mag repleted -S/p 1L IV fluid hydration. Continue 100ml/hr NS fluid. Encouraged oral intake #History of hypothyroidism -Not on hypothyroidism medication at home -TSH ordered # Hyperlipidemia -Not on home medication for hyperlipidemia -Will be on Aspirin 81mg as patient also has COVID as well(indicated for COVID patient who has DVT prophylaxis) #GERD -Convert home med Esmoprazole to Omeprazole; Esmoprazole not on formulary #Depression/Anxiety -Continue home med Duloxetine and Trazodone #Hypertension -Not on antihypertensives at home -BP roughly stable. Continue to monitor vital signs DVT prophylaxis: Lovenox SC Disposition: A. fib, electrolyte disturbance, COVID pneumonia. Pending clinical improvement Plan/VTE VTE Prophylaxis Ordered?: Yes VS, I&O, 24H, Fishbone Vital Signs/I&O Vital Signs Date Time Temp Pulse Resp B/P (MAP) Pulse Ox O2 Delivery O2 Flow Rate FiO2 07/02/21 06:45 55 97 07/02/21 06:00 137/63 (87) 07/02/21 02:14 18 Nasal Cannula 3.0 07/02/21 01:54 100.9 I&O- Last 24 Hours up to 6 AM 07/02/21 06:00 Intake Total 1050 ml Balance 1050 ml Laboratory Data 24H LABS Laboratory Tests 2 07/02/21 00:34: Immature Granulocyte % (Auto) 0.3, Neutrophils (%) (Auto) 80.4H, Lymphocytes (%) (Auto) 13.0L, Monocytes (%) (Auto) 6.3, Eosinophils (%) (Auto) 0.0, Basophils (%) (Auto) 0.0, Neutrophils # (Auto) 2.7, Lymphocytes # (Auto) 0.4L, Monocytes # (Auto) 0.2, Eosinophils # (Auto) 0.0, Basophils # (Auto) 0.0, Nucleated Red Blood Cells % (auto) 0.0, Prothrombin Time 14.7H, Prothromb Time International Ratio 1.10, Activated Partial Thromboplast Time 40.0H, Fibrinogen 396, D-Dimer, Quantitative 1407.80H, Anion Gap 7L, Glomerular Filtration Rate > 60.0, Lactic Acid Level 0.9, Calcium Level 7.4L, Magnesium Level 1.8, Ferritin 103, Total Bilirubin 0.4, Aspartate Amino Transf (AST/SGOT) 19, Alanine Aminotransferase (ALT/SGPT) 15, Alkaline Phosphatase 65, Lactate Dehydrogenase 270H, C-Reactive Protein, Quantitative 3.96H, HM-Sbb-C-Type Natriuretic Peptide 1431H, Total Protein 6.2L, Albumin 2.9L, Albumin/Globulin Ratio 0.9L, Procalcitonin 0.11 07/02/21 00:44: Blood Gas Bicarbonate Standard 23.7, Arterial Blood pH 7.468H, Arterial Blood Partial Pressure CO2 31.4L, Arterial Blood Partial Pressure O2 61.4L, Arterial Blood Total CO2 23.2, Arterial Blood HCO3 22.2, Arterial Blood Base Excess -0.8, Arterial Blood Oxygen Saturation 91.0L 07/02/21 01:10: POC Troponin I (Misc) 0.02 07/02/21 04:25: Urine Color YELLOW, Urine Appearance CLOUDYH, Urine pH 5.0, Urine Specific Wilcox 1.017, Urine Protein 2+H, Urine Glucose (UA) NEGATIVE, Urine Ketones NEGATIVE, Urine Blood 2+H, Urine Nitrite NEGATIVE, Urine Bilirubin NEGATIVE, Urine Urobilinogen 0.2, Urine Leukocyte Esterase NEGATIVE, Urine WBC (Auto) 2, Urine RBC (Auto) 7H, Urine Hyaline Casts (Auto) 0, Urine Bacteria (Auto) 1+H, Urine Squamous Epithelial Cells 1, Urine Mucus (Auto) SMALL, Urine Sperm (Auto) 07/02/21 04:27: Coronavirus (COVID-19)(PCR) POSITIVEA, Influenza Type A (RT-PCR) NEGATIVE, Influenza Type B (RT-PCR) NEGATIVE, Respiratory Syncytial Virus (PCR) NEGATIVE 07/02/21 07:01: Differential Slide Review Report, Peripheral Blood Smear Path Consult PERIPHERAL SMEAR 07/02/21 07:07: Immature Granulocyte % (Auto) 0.5, Neutrophils (%) (Auto) 66.2H, Lymphocytes (%) (Auto) 23.4L, Monocytes (%) (Auto) 9.9H, Eosinophils (%) (Auto) 0.0, Basophils (%) (Auto) 0.0, Neutrophils # (Auto) 1.3L, Lymphocytes # (Auto) 0.5L, Monocytes # (Auto) 0.2, Eosinophils # (Auto) 0.0, Basophils # (Auto) 0.0, Nucleated Red Blood Cells % (auto) 0.0, Prothrombin Time 14.6H, Prothromb Time International Ratio 1.09, Activated Partial Thromboplast Time 45.2H, Fibrinogen 319, Anion Gap 7L, Glomerular Filtration Rate > 60.0, Calcium Level 7.1L, Phosphorus Level 3.6, Magnesium Level 1.6L, Ferritin 102, Total Bilirubin 0.4, Direct Bilirubin 0.2, Aspartate Amino Transf (AST/SGOT) 20, Alanine Aminotransferase (ALT/SGPT) 13, Alkaline Phosphatase 52, Lactate Dehydrogenase 254H, Total Creatine Kinase 161, Creatine Kinase MB 2.0, Creatine Kinase MB Relative Index 1.24, Troponin I High Sensitivity 40.0, C-Reactive Protein, Quantitative 3.88H, Total Protein 5.4L, Albumin 2.2#L, Albumin/Globulin Ratio 0.7L CBC/BMP Laboratory Tests 07/02/21 00:34 07/02/21 07:07 Microbiology Microbiology 07/02/21 Blood Culture, Received Pending 07/02/21 Blood Culture, Received Pending GME ATTESTATION GME ATTESTATION My faculty preceptor for this patient encounter was physically present during the encounter and was fully available. All aspects of the patient interview, examination, medical decision making process, and medical care plan development were reviewed and approved by the faculty preceptor. The faculty preceptor is aware and concurs with the plan as stated in the body of this note and will attest to such by his/her cosignature. GME ATTESTATION GME ATTESTATION My faculty preceptor for this patient encounter was physically present during the encounter and was fully available. All aspects of the patient interview, examination, medical decision making process, and medical care plan development were reviewed and approved by the faculty preceptor. The faculty preceptor is aware and concurs with the plan as stated in the body of this note and will attest to such by his/her cosignature. DOTTY AGGARWAL DO Jul 02, 2021 09:44
[2021-07-02] MEDS ORDERED: CLOT1CRE56 TOP (11:09)
[2021-07-02] MEDS ORDERED: TRAZ-186 PO (11:09)
[2021-07-02] MEDS ORDERED: ESOM1CAP5 PO (11:09)
[2021-07-02] MEDS ORDERED: L-ME1TAB PO (11:09)
[2021-07-02] MEDS ORDERED: MED NOTE (11:11)
[2021-07-02] MEDS ORDERED: HOME MED LIST COMPLETE! XX SCH (11:15)
[2021-07-02] MEDS: DULoxetine 30MG CAPSULE (CYMBALTA) PO SCH (11:46)
[2021-07-02 15:54] LABS: BLOOD UREA NITROGEN 13 MG/DL (7-18); CALCIUM LEVEL 7.3 MG/DL (8.8-10.2); CARBON DIOXIDE LEVEL 25 MEQ/L (21-32); CHLORIDE LEVEL 112 MEQ/L (98-107); CREATININE FOR GFR 0.72 MG/DL (0.55-1.30); GLOMERULAR FILTRATION RATE > 60.0 (>32); GLUCOSE, FASTING 160 MG/DL (70-100); MAGNESIUM LEVEL 1.6 MG/DL (1.8-2.4); POTASSIUM SERUM 4.3 MEQ/L (3.5-5.1); SODIUM LEVEL 142 MEQ/L (136-145)
[2021-07-02] MEDS ORDERED: MAG SULF 1GM/100ML (MAG RUN) 1 GM in IV 1 EA IV ONE ×2 (16:20→19:05)
--- NOTE | 2021-07-02 16:49 | ECGEPIP ---
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
[2021-07-02] MEDS ORDERED: ONDANSETRON 4MG/2ML VIAL IV PRN (18:45)
[2021-07-02 18:50] VITALS: O2SAT 95
[2021-07-02 19:46] VITALS: BP 121/58
[2021-07-02 20:00] VITALS: O2SAT 94
--- NOTE | 2021-07-02 20:15 | IPNPDOC ---
Text Note Date of Service The patient was seen on 07/02/21. NOTE Notified pt with code status discussion. pt seen at bedside a/ox3, calm. She reports she is dnr/dni, paperwork at home- family aware of her wishes. MOLST filled out while in hospital and code status changed to dnr/dni to reflect pt wishes. VS,Fishbone, I+O VS, Fishbone, I+O Laboratory Tests 07/02/21 00:34 07/02/21 07:07 07/02/21 15:06 Vital Signs Date Time Temp Pulse Resp B/P (MAP) Pulse Ox O2 Delivery O2 Flow Rate FiO2 07/02/21 19:46 99.5 71 16 121/58 (79) 94 Room Air 07/02/21 15:50 2.0 I&O- Last 24 Hours up to 6 AM 07/02/21 06:00 Intake Total 1050 ml Balance 1050 ml CLYDE SÁNCHEZ NP Jul 02, 2021 20:15
[2021-07-02] MEDS: traZODone 50 MG TAB PO SCH (20:39)
[2021-07-03] VITALS: O2SAT 94
[2021-07-03 04:00] VITALS: BP 114/56
[2021-07-03] MEDS: DOXYCYCLINE HYCLATE 100 MG in D5W MINI-BAG PLUS 100 ML IV SCH (05:46)
[2021-07-03] MEDS: REMDESIVIR 100 MG in NS 250 ML IV SCH (05:46)
[2021-07-03] MEDS: SODIUM CHLORIDE 0.9% INJ 10 ML SYR IV SCH (05:47)
[2021-07-03] MEDS ORDERED: LEVOTHYROXINE 50MCG TABLET (0.05MG) PO SCH (06:00)
[2021-07-03 07:47] LABS: HEMATOCRIT 31.8 % (36.0-47.0); LYMPH # 0.8 10^3/uL (1.5-5.0); LYMPH % 25.7 % (24.0-44.0); MEAN CORPUSCULAR HEMOGLOBIN 27.1 pg (27.0-33.0); MEAN CORPUSCULAR HGB CONC 31.4 g/dl (32.0-36.5); MEAN CORPUSCULAR VOLUME 86.2 fl (80.0-96.0); MONO # 0.3 10^3/uL (0.0-0.8); MONO % 10.4 % (2.0-8.0); NEUTROPHILS # 2.1 10^3/uL (1.5-8.5); NEUTROPHILS % 63.3 % (36.0-66.0); PLATELET COUNT, AUTOMATED 165 10^3/uL (150-450); RED BLOOD COUNT 3.69 10^6/uL (4.00-5.40); WHITE BLOOD COUNT 3.3 10^3/uL (4.0-10.0)
[2021-07-03 08:13] LABS: BLOOD UREA NITROGEN 16 MG/DL (7-18); CALCIUM LEVEL 8.2 MG/DL (8.8-10.2); CARBON DIOXIDE LEVEL 20 MEQ/L (21-32); CHLORIDE LEVEL 114 MEQ/L (98-107); CREATININE FOR GFR 0.85 MG/DL (0.55-1.30); GLOMERULAR FILTRATION RATE > 60.0 (>32); GLUCOSE, FASTING 124 MG/DL (70-100); MAGNESIUM LEVEL 2.3 MG/DL (1.8-2.4); POTASSIUM SERUM 3.6 MEQ/L (3.5-5.1); SODIUM LEVEL 145 MEQ/L (136-145)
[2021-07-03 08:30] VITALS: O2SAT 95
[2021-07-03] MEDS: ZINC SULFATE 220 MG CAP PO SCH (08:54)
[2021-07-03] MEDS: dexameTHASONE 4 MG/ML 1ML VIAL (J1100 PER 1MG) IV SCH (08:54)
[2021-07-03] MEDS: ASCORBIC ACID 500 MG TAB PO SCH (08:55)
[2021-07-03] MEDS: ENOXAPARIN 30MG/0.3ML SYRINGE (J1650 PER 10MG) SC SCH (08:55)
[2021-07-03] MEDS: ASPIRIN 81MG ENTERIC TABLET PO SCH (08:55)
[2021-07-03] MEDS: DULoxetine 30MG CAPSULE (CYMBALTA) PO SCH (08:55)
[2021-07-03] MEDS: OMEPRAZOLE 20 MG CAP PO SCH (08:55)
[2021-07-03] MEDS: CLOTRIMAZOLE 1% TOPICAL CREAM 30GM TOP SCH ×2 (08:56→21:25)
[2021-07-03] MEDS: cefTRIAXone SOD 1 GM in D5W MINI-BAG PLUS 50 ML IV SCH (08:56)
[2021-07-03] MEDS: DOCUSATE SODIUM 100MG CAPSULE PO SCH ×2 (08:56→21:00)
[2021-07-03] MEDS ORDERED: LIDOCAINE 2% JELLY 5ML TUBE TOP PRN (09:45)
[2021-07-03] MEDS ORDERED: ELIQ5TAB PO (11:51)
[2021-07-03] MEDS ORDERED: ASCO50TA PO (12:15)
[2021-07-03] MEDS ORDERED: ZINC220CA PO (12:15)
[2021-07-03] MEDS ORDERED: ASPI-551 PO (12:15)
[2021-07-03] MEDS ORDERED: PROAAER10 INH (12:17)
[2021-07-03 14:00] VITALS: BP 108/56; O2SAT 94
[2021-07-03 14:09] LABS: MYCOPLASMA PNEUMONIAE IgG 549 U/mL (0-99); MYCOPLASMA PNEUMONIAE IgM <770 U/mL (0-769)
[2021-07-03] MEDS ORDERED: ATOR1TAB21 PO (16:21)
--- NOTE | 2021-07-03 16:34 | DS.PDOC ---
Discharge Summary General Date of Admission Jul 02, 2021 at 03:41 Date of Discharge 07/03/2021 Attending Physician: JIAN GUSMAN MD Discharge Summary PROCEDURES PERFORMED DURING STAY: [None]. ADMITTING DIAGNOSES: 1. Shortness of breath 2/2 Covid 19 infection with possible superimposed bacterial pneumonia: 2. Dehydration 3. Hypokalemia 4. Hypothyroidism 5. Hyperlipidemia 6. Impression DISCHARGE DIAGNOSES: 1. COVID pneumonia, improved 2. Pancytopenia, improved 3. New-onset atrial fibrillation without RVR, patient refused anticoagulation 4. Hypomagnesemia due to decreased oral intake, resolved 5. Hypokalemia due to decreased oral intake and hypomagnesemia, resolved 6. Generalized weakness likely due to dehydration and electrolyte disturbance, improved 7. History of hypothyroidism 8. Hyperlipidemia 9. GERD 10. Hypertension 11. Diarrhea likely due to COVID infection COMPLICATIONS/CHIEF COMPLAINT: Exertional Dyspnea, Hypoxia, Pneumonia. HISTORY OF PRESENT ILLNESS: Patient is a 86 year old female with history of hypothyroidism and anemia presented to [facility] Emergency Department on 07/01/2021 because of progressive weakness over the past 1 week. Patient was noted to be tested positive for Covid the day before admission at an outside hospital and patient was sent home. Her weakness worsened which prompted her to come back to [facility] ER. Patient reported that she has shortness of breath on exertion but not at rest. She has a mild cough. She denies a fever, nausea, or vomiting. She reported intermittent diarrhea for the past several days prior to admission. Patient reported that her appetite has been significantly decreased over the past week and she hasn't been eating or drinking much. Patient endorses being unvaccinated. HOSPITAL COURSE: In the ER patient was found to be hypoxic at rest just below 90%, and she was placed on 2 L oxygen by nasal cannula. Her oxygen saturation improved to 94%. Her chest x-ray report showed "1. Patchy the bilateral pulmonary opacities, worse on the right. 2. Cardiomegaly. 3. Small hiatal hernia." Patient was started on IV antibiotics with Zosyn(given by ER) and then IV Ceftriaxone and Doxycycline for presumed superimposed bacterial pneumonia infection. She was also found to have hypomagnesemia and hypokalemia in ER. She was started on IV Dexamethasone, Remdesivir, awake pronation, incentive spirometry, and albuterol inhaler PRN. Vitamin C and Zinc Sulfate were also started. On 07/02/2021, patient reported to provider that her productive cough and dyspnea started around 06/25/2021. Her EKG upon admission was reviewed by day team which indicated atrial fibrillation without RVR. Her initial troponin was 0.2 and repeat high sensitivity troponin was 40, within reference range. Her hypomagnesemia and hypokalemia were corrected after IV and PO supplementation. Patient's TSH is within normal range. Patient continued to be in atrial fibrillation without rapid ventricular rate. She had CHADVASC score of greater than 2, indicating anticoagulation is needed. On 07/03/2021, per attending discussion with the patient, the patient refused to be started on anticoagulation, and the above was updated with the patient's daughter as well. Patient's memory is intact and is able to carry normal conversation. She was also able to follow instructions for cranial nerve examination. Her procalcitonin returned and was 0.11, indicating low likelihood of bacterial infection. Her blood cultures were also negative and her antibiotics were later discontinued. Patient was also found to have pancytopenia which improved mildly on 07/03/2021. Her peripheral smear showed "Normocytic normochromic anemia. Nucleated red cells are not seen. Leukopenia associated with absolute lymphopenia. Mild thrombocytopenia. No blast forms are identified. Hematology/Oncology consultation may be needed if not done so already."On 07/03/2021, patient was saturating well on room air without oxygen supplementation; she denies any chest pain, palpitation, dyspnea, fever, chills, nausea, vomiting, generalized weakness, abdominal pain. She expressed about 4 diarrhea in a day without hematochezia or melena. She expressed rectal pain and would like cream for the rectum area. With the presence of wash oil pump operator helper(nursing staff Yessenia Nielsen) in the exam room, no thrombosed hemorrhoids were noticed on examination. Topical lidocaine gel was started for presumed anal fissure secondary to diarrhea. DISCHARGE MEDICATIONS: Please see below. ALLERGIES: Please see below. PHYSICAL EXAMINATION ON DISCHARGE: VITAL SIGNS: Please see below. GENERAL: Alert and awake, not in acute distress HEENT: Head normocephalic, atraumatic, no scleral injection or scleral icterus NECK: Supple CARDIOVASCULAR EXAMINATION: Irregularly irregular rhythm, no murmur RESPIRATORY EXAMINATION: No labored breathing or accessory muscle use. Lungs clear to auscultation bilaterally. ABDOMINAL EXAMINATION: Soft, bowel sound auscultated in all four quadrants. No tenderness upon palpation EXTREMITIES: 5/5 strength in all four extremities. No tenderness upon palpation in bilateral calves. SKIN: Good skin turgor and temperature. No obvious erythema or openings noted. No thrombosed hemorrhoid(examination of perineum area done in the presence of the wash oil pump operator helper) NEUROLOGICAL EXAMINATION: CN2-12 intact. A&OX3. Able to carry normal conversation and follow instructions PSYCHIATRIC EXAMINATION: Normal mentation. Memory intact. Mood and affect stable. LABORATORY DATA: Please see below. IMAGING: CTA 07/02/2021 report showed "1. Multifocal ground-glass pulmonary opacities typical of covid-19 pneumonia. 2. No pulmonary embolism. 3. Cholelithiasis. 7 mm calculus in the cystic duct. No gallbladder wall thickening is seen. Consider gallbladder ultrasound follow-up if there is concern for acute cholecystitis. 4. Incidental right adrenal adenoma. 5. Small hiatal hernia." CXR report showed "1. Patchy the bilateral pulmonary opacities, worse on the right. 2. Cardiomegaly. 3. Small hiatal hernia." PROGNOSIS: [Fair/Poor] ACTIVITY: [As tolerated]. DIET: Low fat low cholesterol diet DISCHARGE PLAN AND INSTRUCTIONS: 1. Please follow up with PCP in 7 days. Please establish care with snack steward in 5 days. Please discuss with your primary care provider and snack steward regarding anticoagulant use for your atrial fibrillation. Return to the ER if symptoms worsen or if you have new symptoms ITEMS TO FOLLOWUP ON ON OUTPATIENT: 1. Atrial fibrillation (patient refused to be started on anticoagulation) 2. Dyspnea 3. Cholelithiasis 4. Right adrenal adenoma 5. Pancytopenia 6. Diarrhea 7. Cardiomegaly 8. Anal pain 9. Needs echocardiogram outpatient DISCHARGE CONDITION: [Improved]. TIME SPENT ON DISCHARGE: [47] minutes. Vital Signs/I&Os Vital Signs Date Time Temp Pulse Resp B/P (MAP) Pulse Ox O2 Delivery O2 Flow Rate FiO2 07/03/21 14:00 99.3 90 20 108/56 (73) 95 Room Air 07/03/21 04:00 2.0 I&O- Last 24 Hours up to 6 AM 07/03/21 05:59 Intake Total 3470 ml Output Total 700 ml Balance 2770 ml Laboratory Data Labs 24H Laboratory Tests 2 07/03/21 06:37: Immature Granulocyte % (Auto) 0.6, Neutrophils (%) (Auto) 63.3, Lymphocytes (%) (Auto) 25.7, Monocytes (%) (Auto) 10.4H, Eosinophils (%) (Auto) 0.0, Basophils (%) (Auto) 0.0, Neutrophils # (Auto) 2.1, Lymphocytes # (Auto) 0.8L, Monocytes # (Auto) 0.3, Eosinophils # (Auto) 0.0, Basophils # (Auto) 0.0, Nucleated Red Blood Cells % (auto) 0.0, Anion Gap 11, Glomerular Filtration Rate > 60.0, Calcium Level 8.2L, Magnesium Level 2.3 CBC/BMP Laboratory Tests 07/03/21 06:37 Microbiology Microbiology 07/02/21 Blood Culture - Preliminary, Resulted No growth after 24 hours . All specim... 07/02/21 Blood Culture - Preliminary, Resulted No growth after 24 hours . All specim... Discharge Medications Scheduled Ascorbic Acid (Vitamin C) 500 Mg Tablet, 1,000 MG PO DAILY Aspirin (Aspirin EC) 81 Mg Tablet.dr, 81 MG PO DAILY Atorvastatin Calcium (Atorvastatin Calcium) 20 Mg Tablet, 20 MG PO DAILY Clotrimazole (Clotrimazole) 1% 30GM Cream..g., 1 APLCT TOP BID, (Reported) MOUTH Duloxetine Hcl (Cymbalta) 60 Mg Cap, 60 MG PO DAILY, (Reported) Esomeprazole Magnesium (Esomeprazole Magnesium) 40 Mg Capsule.dr, 40 MG PO DAILY, (Reported) Levomefolate Calcium (l-Methylfolate Calcium) 15 Mg Tablet, 15 MG PO DAILY, (Reported) Trazodone HCl (Trazodone HCl) 50 Mg Tablet, 50 MG PO QHS, (Reported) Zinc Sulfate (Zinc Sulfate) 220 Mg Capsule, 220 MG PO DAILY Scheduled PRN Albuterol Sulfate (Proair Hfa) 8.5 Gm Hfa.aer.ad, 2 PUFF INH Q4-6HP PRN for wheezing Miscellaneous Medications [Med Note] , (Reported) PT STATES BEEN ABOUT 3-4 DAYS SINCE LAST TAKEN ANY MEDICATIONS 07/02. Allergies Coded Allergies: meperidine (Verified Allergy, Unknown, 07/02/21) morphine (Verified Allergy, Unknown, 07/02/21) propoxyphene (Verified Allergy, Unknown, 07/02/21) GME ATTESTATION GME ATTESTATION My faculty preceptor for this patient encounter was physically present during the encounter and was fully available. All aspects of the patient interview, ex amination, medical decision making process, and medical care plan development were reviewed and approved by the faculty preceptor. The faculty preceptor is aware and concurs with the plan as stated in the body of this note and will attest to such by his/her cosignature. DOTTY AGGARWAL DO Jul 03, 2021 16:34
--- NOTE | 2021-07-03 18:57 | ECGEPIP ---
[facility] Test Date: 2021-07-03 Pat Name: EDISON CALDERON Department: Room: [place] [address] Gender: Female Real Estate Account Executive: mariola : 1935 Requested By: DOTTY AGGARWAL Order Number: [id number] Reading MD: Hemant Sexton Measurements Intervals [place] Rate: 79 P: IN: QRS: 5 QRSD: 84 T: 52 QT: 382 QTc: 438 Interpretive Statements Atrial fibrillation Nonspecific ST and T wave abnormality previous tracing done 07-02-21 was nsr with ectopy Electronically Signed on 07-03-2021 18:57:38 EST by Hemant Sexton
[2021-07-03 20:00] VITALS: O2SAT 94
[2021-07-03] MEDS: traZODone 50 MG TAB PO SCH (21:25)
[2021-07-03 22:00] VITALS: BP 149/90
[2021-07-03] MEDS ORDERED: IPRATROPIUM 0.5MG/ALBUTEROL 2.5MG INH SOL UD 3ML (DUONEB) NEB PRN (23:45)
[2021-07-04] VITALS: O2SAT 96
[2021-07-04 04:00] VITALS: O2SAT 95
[2021-07-04] MEDS ORDERED: guaiFENesin ER 600 MG TAB PO PRN (04:40)
[2021-07-04 05:35] VITALS: BP 100/60
[2021-07-04] MEDS: REMDESIVIR 100 MG in NS 250 ML IV SCH (06:27)
[2021-07-04] MEDS: SODIUM CHLORIDE 0.9% INJ 10 ML SYR IV SCH (06:31)
[2021-07-04 07:03] LABS: HEMATOCRIT 32.5 % (36.0-47.0); HEMOGLOBIN 10.3 g/dl (12.0-15.5); LYMPH # 0.9 10^3/uL (1.5-5.0); LYMPH % 17.2 % (24.0-44.0); MEAN CORPUSCULAR HEMOGLOBIN 27.5 pg (27.0-33.0); MEAN CORPUSCULAR HGB CONC 31.7 g/dl (32.0-36.5); MEAN CORPUSCULAR VOLUME 86.7 fl (80.0-96.0); MONO # 0.4 10^3/uL (0.0-0.8); MONO % 8.2 % (2.0-8.0); NEUTROPHILS # 3.7 10^3/uL (1.5-8.5); PLATELET COUNT, AUTOMATED 201 10^3/uL (150-450); RED BLOOD COUNT 3.75 10^6/uL (4.00-5.40)
[2021-07-04 07:06] LABS: INR 1.11; PARTIAL THROMBOPLASTIN TIME 39.5 SECONDS (25.9-37.0); PROTHROMBIN TIME 14.8 SECONDS (12.7-14.5)
[2021-07-04 07:21] LABS: BLOOD UREA NITROGEN 17 MG/DL (7-18); CALCIUM LEVEL 8.3 MG/DL (8.8-10.2); CARBON DIOXIDE LEVEL 26 MEQ/L (21-32); CHLORIDE LEVEL 110 MEQ/L (98-107); CREATININE FOR GFR 0.73 MG/DL (0.55-1.30); FERRITIN 121 NG/ML (8-252); GLOMERULAR FILTRATION RATE > 60.0 (>32); GLUCOSE, FASTING 98 MG/DL (70-100); LDH LACTATE DEHYDROGENASE 313 U/L (84-246); MAGNESIUM LEVEL 1.9 MG/DL (1.8-2.4); NT-PRO BNP 4254 PG/ML (<450); POTASSIUM SERUM 3.1 MEQ/L (3.5-5.1); SODIUM LEVEL 143 MEQ/L (136-145)
[2021-07-04] MEDS: OMEPRAZOLE 20 MG CAP PO SCH (09:00)
[2021-07-04] MEDS: DOCUSATE SODIUM 100MG CAPSULE PO SCH (09:00)
[2021-07-04] MEDS ORDERED: POTASSIUM CHLORIDE 10MEQ SR TABLET PO ONE (10:00)
[2021-07-04] MEDS: ASPIRIN 81MG ENTERIC TABLET PO SCH (10:29)
[2021-07-04] MEDS: ASCORBIC ACID 500 MG TAB PO SCH (10:29)
[2021-07-04] MEDS: DULoxetine 30MG CAPSULE (CYMBALTA) PO SCH (10:29)
[2021-07-04] MEDS: ZINC SULFATE 220 MG CAP PO SCH (10:29)
[2021-07-04] MEDS: dexameTHASONE 4 MG/ML 1ML VIAL (J1100 PER 1MG) IV SCH (10:31)
[2021-07-04] MEDS: ENOXAPARIN 30MG/0.3ML SYRINGE (J1650 PER 10MG) SC SCH (10:31)
[2021-07-04] MEDS: CLOTRIMAZOLE 1% TOPICAL CREAM 30GM TOP SCH (10:32)
[2021-07-04] MEDS ORDERED: POTA20TA6 PO (10:57)
[2021-07-04] MEDS ORDERED: PRED20TA PO (10:57)
[2021-07-04] MEDS ORDERED: WARFARIN SOD 2.5MG TAB PO ONE (11:00)
[2021-07-04] MEDS ORDERED: ELIQ5TAB PO (11:27)
--- NOTE | 2021-07-04 12:03 | DS.PDOC ---
Discharge Summary General Date of Admission Jul 02, 2021 at 03:41 Date of Discharge 07/04/2021 Attending Physician: JIAN GUSMAN MD Discharge Summary PROCEDURES PERFORMED DURING STAY: None. ADMITTING DIAGNOSES: 1. SOB likely due to COVID 19 infection and possibly superimposed bacterial pneumonia 2. Hypokalemia 3. Hypothyroidism 4. Dehydration 5. Hyperllipidemia DISCHARGE DIAGNOSES: 1. COVID 19 pneumonia, which has improved 2. Pancytopenia, also improved 3. New onset afib w/o RVR, patient initially refused anticoagulation but has now agreed 4. Hypomagnesemia, likely 2/2 decreased oral intake, has resolved 5. Hypokalemia, also [id number] to decreased oral intake as well as hypomagnesemia, resolved 6. Generalized weakness, likely 2ndary to dehydration + electrolyte disturbance, has resolved 7. Hypothyroidism 8. GERD 9. HLD 10. HTN 11. Diarrhea, likely due to COVID-19 infection COMPLICATIONS/CHIEF COMPLAINT: Exertional Dyspnea, Hypoxia, Pneumonia. HISTORY OF PRESENT ILLNESS: Salena Sorto is an 86 year old female with a PMHx of hypothyroidism + anemia who presented to [facility] ED on 07/01/21 due to progressive weakness over the course of the past week. Patient tested + for COVID the day prior to admission at another hospital and was sent home. Patient reports her weakness worsened which promted her to return to the [facility] ER. Patient also reports that she has SOB on exertion but is fine at rest. Patient has a mild cough. Patient denies fever, headache, nausea, or vomiting. Patient noted intermittent episodes of diarrhea for a few days prior to admission. On day of discharge patient noted se had 3 episodes of diarrhea. Patient remarks a decrease in appetite and that she has not been drinking or eating very much. Patient notes dizziness when she stands but that this has been occurring for years and is nothing new. Patient denies chest pain/ pressure as well as no SOB while resting. Patient remarked on her unvaccinated status as well. HOSPITAL COURSE: Patient was found to be hypoxic in ER slightly below 90% saturation, she was placed on 2L oxygen via nasal cannula. Her O2 sat improved to 94% on nasal cannula. CXR reported: "1. Patchy the bilateral pulmonary opacities, worse on the right. 2. Cardiomegaly. 3. Small hiatal hernia." SHe was begun on IV antibiotics using Zosyn as adminiutered by ER followed by ceftriaxone and Doxy for presumed superimposed bacterial pneumonia infection. Patient was found to have hypokalemia, as well as hypomagnesemia in the ER. Patient was started on IV Dexamethasone, Remdesevir, incentive spiromtery, awake pronation and an albuterol inhaler as needed. Patient was also started on Vitamin C and Zinc sulfate. On 07/02/21 she reported her dyspnea and productive cough began around 06/25/21. EKG on admission was reviewed by the day team and it indicated afib w/o RVR. Initial troponins were 0.2 and high sensitivity repeat was 40, which is in reference range. Her hypokalemia +hypomagnesemia weere corrected after administration of IV + PO supplementation. TSH WNL. Patient continues to be in afib w/o RVR. CHADVASC of 2 indicates need for anticoagulation. On 07/03/21 patient refused anticoagulation after discussion, which the patients daughter was updated on. As of 07/04, day of discharge, patient was discussed with again and agreed to begin anticoagulation, per discussion with patient, director of social work, and patients daughter, it was determined to begin Eliquis after agreement. Patients mentation and memory intact, she can converse without issue. Patient able to follow instructions for CN exam. Procal returned at 0.11 indicating low chance of bacterial infection. Blood cultures turned up negative so antibiotics were later discontinued. Patient was found to have pancytopenia which had mildly improved on 07/03/21 and even moreso as of day of discharge, 07/04/21. Peripheral smear revealed: "Normocytic normochromic anemia. Nucleated red cells are not seen. Leukopenia associated with absolute lymphopenia. Mild thrombocytopenia. No blast forms are identified. Hematology/Oncology consultation may be needed if not done so already." On 07/04/21 patient was satting well on RA w/o O2 supplementation.Patient denies any chest pain, palpitations, fever, dyspnea, chills, vomiting, nausea, abdominal pain, or generalized weakness. Patient remarked on about 3 episodes of diarrhea per day w/o melena or hematochezia. On 07/03/21 patient noted rectal pain and requested cream, with the presence of a bina spain (Yessenia Nielsen, nursing staff) in exam room, exam revealed no thrombosed hemorrhoid. Topical lidocaine gel was begun for presumed anal fissure likely 2ndary to diarrhea. DISCHARGE MEDICATIONS: Please see below. ALLERGIES: Please see below. PHYSICAL EXAMINATION ON DISCHARGE: VITAL SIGNS: Please see below. GENERAL: Patient is a well appearing 86 year old female who looks her age and is in acute distress. HEENT: Mucous membranes moist, cranium is atraumatic and normocephalic. NECK: Supple on exam CARDIOVASCULAR EXAMINATION: Irregularly irregular rythm with no murmurs or gallops appreciated. RESPIRATORY EXAMINATION: CTAB, no labored breathing and w/o accessory muscle use. ABDOMINAL EXAMINATION: Nontender and nodistended with no guarding present. EXTREMITIES: 5/5 muscle strength bilaterally in UE and LE. No tenderness to palpation in either calf. Sensation intact in both legs. SKIN: Appears moist and appropriate temperature. No erythematous areas or obvious openings apparent. NEUROLOGICAL EXAMINATION: CN 2-2 grossly intact, EOMI and PERRLA. Alert and oriented, patient can maintain normal conversation and follows instructions. PSYCHIATRIC EXAMINATION: Mood and affect appropriate, memory and mentation intact. LABORATORY DATA: Please see below. IMAGING: #. CTA 07/02/2021 report showed: 1. Multifocal ground-glass pulmonary opacities typical of covid-19 pneumonia. 2. No pulmonary embolism. 3. Cholelithiasis. 7 mm calculus in the cystic duct. No gallbladder wall thickening is seen. Consider gallbladder ultrasound follow-up if there is concern for acute cholecystitis. 4. Incidental right adrenal adenoma. 5. Small hiatal hernia." #. CXR report showed: 1. Patchy the bilateral pulmonary opacities, worse on the right. 2. Cardiomegaly. 3. Small hiatal hernia." PROGNOSIS: Fair/ Poor ACTIVITY: As tolerated. DIET: Low cholesterol and low fat diet. DISCHARGE PLAN AND INSTRUCTIONS: 1. Please follow up with PCP in 7 days. 2. Please establish care with supervisor food checkers and cashiers in 5 days 3. Please discuss with PCP and Cardio regarding antiocoagulant use for your atrial fibrillation 4. return to ER if symptoms worsen or if you have new symptoms ITEMS TO FOLLOWUP ON ON OUTPATIENT: 1. Afib 2. Dyspnea 3. Cholelithiasis 4. Right adrenal adenoma 5. Pancytopenia 6. Diarrhea 7. Cardiomegaly 8. Anal Pain 9. Needs echo outpatient DISCHARGE CONDITION: Improved TIME SPENT ON DISCHARGE: 50 minutes. Vital Signs/I&Os Vital Signs Date Time Temp Pulse Resp B/P (MAP) Pulse Ox O2 Delivery O2 Flow Rate FiO2 07/04/21 05:35 98.5 78 18 100/60 (73) 93 Room Air 07/03/21 04:00 2.0 I&O- Last 24 Hours up to 6 AM 07/04/21 06:00 Intake Total 940 ml Output Total 1110 ml Balance -170 ml Laboratory Data Labs 24H Laboratory Tests 2 07/04/21 06:25: Immature Granulocyte % (Auto) 0.6, Neutrophils (%) (Auto) 74.0H, Lymphocytes (%) (Auto) 17.2L, Monocytes (%) (Auto) 8.2H, Eosinophils (%) (Auto) 0.0, Basophils (%) (Auto) 0.0, Neutrophils # (Auto) 3.7, Lymphocytes # (Auto) 0.9L, Monocytes # (Auto) 0.4, Eosinophils # (Auto) 0.0, Basophils # (Auto) 0.0, Nucleated Red Blood Cells % (auto) 0.0, Prothrombin Time 14.8H, Prothromb Time International Ratio 1.11, Activated Partial Thromboplast Time 39.5H, Fibrinogen 336, Anion Gap 7L, Glomerular Filtration Rate > 60.0, Calcium Level 8.3L, Magnesium Level 1.9, Ferritin 121, Lactate Dehydrogenase 313H, Total Creatine Kinase 171, YD-Rek-T-Type Natriuretic Peptide 4254H, Procalcitonin 0.07 CBC/BMP Laboratory Tests 07/04/21 06:25 Microbiology Microbiology 07/02/21 Blood Culture - Preliminary, Resulted No Growth after 48 hours. All Specime... 07/02/21 Blood Culture - Preliminary, Resulted No Growth after 48 hours. All Specime... Discharge Medications Scheduled Ascorbic Acid (Vitamin C) 500 Mg Tablet, 1,000 MG PO DAILY Clotrimazole (Clotrimazole) 1% 30GM Cream..g., 1 APLCT TOP BID, (Reported) MOUTH Duloxetine Hcl (Cymbalta) 60 Mg Cap, 60 MG PO DAILY, (Reported) Esomeprazole Magnesium (Esomeprazole Magnesium) 40 Mg Capsule.dr, 40 MG PO DAILY, (Reported) Levomefolate Calcium (l-Methylfolate Calcium) 15 Mg Tablet, 15 MG PO DAILY, (Reported) Trazodone HCl (Trazodone HCl) 50 Mg Tablet, 50 MG PO QHS, (Reported) Zinc Sulfate (Zinc Sulfate) 220 Mg Capsule, 220 MG PO DAILY Scheduled PRN Albuterol Sulfate (Proair Hfa) 8.5 Gm Hfa.aer.ad, 2 PUFF INH Q4-6HP PRN for wheezing Miscellaneous Medications [Med Note] , (Reported) PT STATES BEEN ABOUT 3-4 DAYS SINCE LAST TAKEN ANY MEDICATIONS 07/02. Allergies Coded Allergies: meperidine (Verified Allergy, Unknown, 07/02/21) morphine (Verified Allergy, Unknown, 07/02/21) propoxyphene (Verified Allergy, Unknown, 07/02/21) GME ATTESTATION GME ATTESTATION My faculty preceptor for this patient encounter was physically present during the encounter and was fully available. All aspects of the patient interview, examination, medical decision making process, and medical care plan development were reviewed and approved by the faculty preceptor. The faculty preceptor is aware and concurs with the plan as stated in the body of this note and will attest to such by his/her cosignature. JASON SPARKS OMS-3 Jul 04, 2021 12:03
--- NOTE | 2021-07-04 12:13 | IPNPDOC ---
Subjective Date Seen The patient was seen on 07/03/21.(This progress note is a late entry. Patient originally was going to get discharged on 07/03/2021 with discharge orders placed. Patient is still in the hospital on 07/04/2021, and the 07/03/2021 discharge note will be changed to a 07/03/2021 progress note) Subjective Chief Complaint/HPI This progress note is a late entry. Patient originally was going to get discharged on 07/03/2021 with discharge orders placed. Patient is still in the hospital on 07/04/2021, and the 07/03/2021 discharge note will be changed to a 07/03/2021 progress note. On 07/03/2021, patient was saturating well on room air without oxygen supplementation. She denied any chest pain, palpitation, dyspnea, fever, chills, nausea, vomiting, generalized weakness, abdominal pain. She expressed about 4 diarrhea in a day without hematochezia or melena. She expressed rectal pain and would like cream for the rectum area. General: Denies: Chills Constitutional: Denies: Chills, Fever Pulmonary: Denies: Dyspnea Cardiovascular: Denies: Chest Pain, Palpitations Gastrointestinal: Reports: Diarrhea; Denies: Nausea, Vomiting, Abdominal Pain, Constipation Genitourinary: Denies: Dysuria, Hematuria Neurological: Denies: Weakness, Numbness Objective Physical Examination Other physical findings PHYSICAL EXAMINATION ON DISCHARGE: VITAL SIGNS: Please see below. GENERAL: Alert and awake, not in acute distress HEENT: Head normocephalic, atraumatic, no scleral injection or scleral icterus NECK: Supple CARDIOVASCULAR EXAMINATION: Irregularly irregular rhythm, no murmur RESPIRATORY EXAMINATION: No labored breathing or accessory muscle use. Lungs clear to auscultation bilaterally. ABDOMINAL EXAMINATION: Soft, bowel sound auscultated in all four quadrants. No tenderness upon palpation EXTREMITIES: 5/5 strength in all four extremities. No tenderness upon palpation in bilateral calves. SKIN: Good skin turgor and temperature. No obvious erythema or openings noted. No thrombosed hemorrhoid(examination of perineum area done in the presence of the medical record consultant nursing staff Yessenia Nielsen) NEUROLOGICAL EXAMINATION: CN2-12 intact. A&OX3. Able to carry normal conversation and follow instructions PSYCHIATRIC EXAMINATION: Normal mentation. Memory intact. Mood and affect stable. Assessment /Plan Assessment This progress note is a late entry. Patient originally was going to get discharged on 07/03/2021 with discharge orders placed. Patient is still in the hospital on 07/04/2021 because of family reasons. Therefore, the 07/03/2021 discharge note will be changed into a 07/03/2021 progress note. Patient is a 86 year old female with hyperlipidemia and hypothyroidism who was tested positive for COVID on 06/30/2021 presented to [facility] ED due to generalized weakness. She was tested COVID again and found to have hypoxia requiring 2L of NC oxygenation. Patient was also found to have atrial fibrillation without RVR, hypokalemia, and hypomagnesemia. Her hypokalemia and hypomagnesia had resolved. Patient still in atrial fibrillation without RVR # COVID pneumonia, improved -Tested positive for COVID 06/30/2021, symptoms onset around 06/25/2021. -CTA showed "1. Multifocal ground-glass pulmonary opacities typical of covid-19 pneumonia. No pulmonary embolism." -Patient saturates well on room air. Denies dyspnea, chest pain , or palpitaition. -IV Dexamethasone, Remdesivir, awake pronation, incentive spirometry, and albuterol inhaler PRN. Vitamin C and Zinc Sulfate.(Patient's discharge order placed on 07/03/2021 and patient ended up staying in the hospital on 07/03/2021 and subsequently medications were continued) -Lovenox SC for DVT prophylaxis(Patient's discharge order placed on 07/03/2021 and patient ended up staying in the hospital on 07/03/2021 and subsequently medications were continued) -Patient refused full anticoagulation for a. fib per discussion with attending -D/C Ceftriaxone and Doxycycline for now as superimposed bacteria pneumonia is unlikely -Continue pulse ox monitor, oxygen supplementation to keep O2>90% #Pancytopenia, likely due to viral infection vs less likely bone marrow etiology, improved -Patient did have history of anemia but leukopenia and thrombocytopenia is new -Patient's peripheral smear showed "Normocytic normochromic anemia. Nucleated red cells are not seen. Leukopenia associated with absolute lymphopenia. Mild thrombocytopenia. No blast forms are identified. Hematology/Oncology consultation may be needed if not done so already." -This needs to be followed up outpatient # New-onset atrial fibrillation without RVR -A. fib was noted in EKG in this hospital visit which is new compared to prior. Initial Trop of 0.2 likely due to atrial fibrillation, repeat high sensitivity troponin was 40, within reference range. -Patient denies chest pain or palpitation -CHADVASC score of 4, indicating anticoagulation is needed. Per attending discussion with patient on 07/03/2021, patient refused to be started on full anticoagulation despite the possible risks and consequences without full anticoagulation. -Tele monitor #Hypomagnesemia due to decreased oral intake, resolved -Patient had history of hypomagnesemia -S/p IV and PO repletion -Mag 2.3 this morning #Hypokalemia due to decreased oral intake and hypomagnesemia, resolved -S/p IV and PO repletion -K of 3.6 this morning #Generalized weakness likely due to dehydration and electrolyte disturbance -K and Mag repleted -S/p 1L IV fluid hydration. Encouraged oral intake #History of hypothyroidism -Not on hypothyroidism medication at home -TSH was 1.31, within reference range # Hyperlipidemia -On Aspirin 81mg as patient also has COVID as well(indicated for COVID patient who has DVT prophylaxis) #GERD -Convert home med Esmoprazole to Omeprazole; Esmoprazole not on formulary #Depression/Anxiety -Continue home med Duloxetine and Trazodone #Hypertension -Not on antihypertensives at home -BP roughly stable. Continue to monitor vital signs #Diarrhea likely due to COVID infection -Continue to monitor. Low likelihood for C. diff because 4 diarrhea daily #Rectal pain from anal fissure -Anal fissures likely from diarrhea -Start cream to be applied to the rectal area DVT prophylaxis: Lovenox SC(Patient's discharge order placed on 07/03/2021 and patient ended up staying in the hospital on 07/03/2021 and subsequently medications were continued) Plan/VTE VTE Prophylaxis Ordered?: Yes VS, I&O, 24H, Fishbone Vital Signs/I&O Vital Signs Date Time Temp Pulse Resp B/P (MAP) Pulse Ox O2 Delivery O2 Flow Rate FiO2 07/04/21 05:35 98.5 78 18 100/60 (73) 93 Room Air 07/03/21 04:00 2.0 I&O- Last 24 Hours up to 6 AM 07/04/21 06:00 Intake Total 940 ml Output Total 1110 ml Balance -170 ml Laboratory Data 24H LABS Laboratory Tests 2 07/04/21 06:25: Immature Granulocyte % (Auto) 0.6, Neutrophils (%) (Auto) 74.0H, Lymphocytes (%) (Auto) 17.2L, Monocytes (%) (Auto) 8.2H, Eosinophils (%) (Auto) 0.0, Basophils (%) (Auto) 0.0, Neutrophils # (Auto) 3.7, Lymphocytes # (Auto) 0.9L, Monocytes # (Auto) 0.4, Eosinophils # (Auto) 0.0, Basophils # (Auto) 0.0, Nucleated Red Blood Cells % (auto) 0.0, Prothrombin Time 14.8H, Prothromb Time International Ratio 1.11, Activated Partial Thromboplast Time 39.5H, Fibrinogen 336, Anion Gap 7L, Glomerular Filtration Rate > 60.0, Calcium Level 8.3L, Magnesium Level 1.9, Ferritin 121, Lactate Dehydrogenase 313H, Total Creatine Kinase 171, GP-Tzy-F-Type Natriuretic Peptide 4254H, Procalcitonin 0.07 CBC/BMP Laboratory Tests 07/04/21 06:25 Microbiology Microbiology 07/02/21 Blood Culture - Preliminary, Resulted No Growth after 48 hours. All Specime... 07/02/21 Blood Culture - Preliminary, Resulted No Growth after 48 hours. All Specime... GME ATTESTATION GME ATTESTATION My faculty preceptor for this patient encounter was physically present during the encounter and was fully available. All aspects of the patient interview, examination, medical decision making process, and medical care plan development were reviewed and approved by the faculty preceptor. The faculty preceptor is aware and concurs with the plan as stated in the body of this note and will attest to such by his/her cosignature. DOTTY AGGARWAL DO Jul 04, 2021 12:13
[2021-07-04 17:07] LABS: BODY FLUID CULTURE Not indicated. (.); LEGIONELLA ANTIGEN URINE Negative (Negative); ORGANISM ID Not indicated. (.); SPECIMEN SOURCE Urine (.); URINE STREP PNEUMONIAE ANTIGEN Negative (Negative)
[2021-07-04] MEDS ORDERED: APIXABAN 5 MG TAB (ELIQUIS) PO SCH (21:00)
[2021-07-05] MEDS ORDERED: POTASSIUM CHLORIDE 10MEQ SR TABLET PO SCH (09:00)
[2021-07-05] MEDS ORDERED: WARFARIN SOD 2.5MG TAB PO SCH (17:00)
== END 2021-07-04 14:25 | disposition home health service (06) | DRG 177 ==
LOC: M ED 23:43 → M ED INP 07-02 03:41 → ENRESERV 07-02 13:35 → M 4MAIN 07-02 16:16
PROVIDERS: ADMIT Family Medicine; ATTEND Family Medicine
PROC: 3E0333Z Introduction of Anti-inflammatory into Peripheral Vein, Percutaneous Approach (ICD-10-PCS; principal; 2021-07-02)
PROC: XW033E5 Introduction of Remdesivir Anti-infective into Peripheral Vein, Percutaneous Approach, New Technology Group 5 (ICD-10-PCS; 2021-07-03)
DX: U07.1 COVID-19 (principal); J12.82 Pneumonia due to coronavirus disease 2019; D61.818 Other pancytopenia; E86.0 Dehydration; E87.6 Hypokalemia; E03.9 Hypothyroidism, unspecified; E78.5 Hyperlipidemia, unspecified; R26.89 Other abnormalities of gait and mobility; F32.A Depression, unspecified; K21.9 Gastro-esophageal reflux disease without esophagitis; I71.2 Thoracic aortic aneurysm, without rupture; M19.90 Unspecified osteoarthritis, unspecified site; R32 Unspecified urinary incontinence; E83.42 Hypomagnesemia; R91.8 Other nonspecific abnormal finding of lung field; Z90.49 Acquired absence of other specified parts of digestive tract; Z96.653 Presence of artificial knee joint, bilateral; Z79.899 Other long term (current) drug therapy; Z88.5 Allergy status to narcotic agent; Z88.8 Allergy status to other drugs, medicaments and biological substances; Z66 Do not resuscitate; I48.91 Unspecified atrial fibrillation; F41.9 Anxiety disorder, unspecified; K60.2 Anal fissure, unspecified; R19.7 Diarrhea, unspecified

== ENCOUNTER → 2021-07-23 | Outpatient (REF) | payer MEDICARE, OTHER ==
[~2021-07-23] MED LIST changes: +ASCO50TA PO; +ASPI-551 PO; +ATOR1TAB21 PO; +CLOT1CRE56 TOP; +ELIQ5TAB PO; +ESOM1CAP5 PO; +L-ME1TAB PO; +LOSA50TA28 PO; -LOSA50TA88 PO; +MED NOTE; +POTA-151 PO; +PRED20TA PO; +PROAAER10 INH; +TRAZ-186 PO; +ZINC220CA PO
[2021-07-23 16:23] LABS: BASO % 0.5 % (0.0-1.0); EOS # 0.1 10^3/uL (0.0-0.5); EOS % 1.3 % (0.0-3.0); HEMATOCRIT 32.5 % (36.0-47.0); LYMPH # 1.3 10^3/uL (1.5-5.0); LYMPH % 16.9 % (24.0-44.0); MEAN CORPUSCULAR HEMOGLOBIN 27.7 pg (27.0-33.0); MEAN CORPUSCULAR HGB CONC 30.8 g/dl (32.0-36.5); MONO # 0.5 10^3/uL (0.0-0.8); MONO % 6.6 % (2.0-8.0); NEUTROPHILS # 5.9 10^3/uL (1.5-8.5); NEUTROPHILS % 74.2 % (36.0-66.0); PLATELET COUNT, AUTOMATED 251 10^3/uL (150-450); RED BLOOD COUNT 3.61 10^6/uL (4.00-5.40); WHITE BLOOD COUNT 7.9 10^3/uL (4.0-10.0)
[2021-07-23 16:44] LABS: ALBUMIN 3.1 GM/DL (3.2-5.2); ALT/SGPT 17 U/L (12-78); BILIRUBIN,TOTAL 0.4 MG/DL (0.2-1.0); BLOOD UREA NITROGEN 21 MG/DL (7-18); CALCIUM LEVEL 8.9 MG/DL (8.8-10.2); CARBON DIOXIDE LEVEL 30 MEQ/L (21-32); CHLORIDE LEVEL 108 MEQ/L (98-107); GLOMERULAR FILTRATION RATE > 60.0 (>32); GLUCOSE, FASTING 90 MG/DL (70-100); POTASSIUM SERUM 4.4 MEQ/L (3.5-5.1); SODIUM LEVEL 142 MEQ/L (136-145); TOTAL PROTEIN 6.4 GM/DL (6.4-8.2)
[2021-07-24 07:43] LABS: IRON (FE) 35 UG/DL (50-170); PERCENT SATURATION 10.8 % (13.2-45.0); TOTAL IRON BINDING CAPACITY 324 UG/DL (250-450)
[2021-07-24 11:39] LABS: VITAMIN B12 LEVEL 451 PG/ML (247-911)
[2021-07-28 14:02] LABS: ALBUMIN % 54.7 % (55.8-66.1); ALPHA-1-GLOBULIN % 6.4 % (2.9-4.9); ALPHA-1-GLOBULINS 0.41 GM/DL (0.17-0.41); ALPHA-2-GLOBULINS 0.79 GM/DL (0.42-0.99); ALPHA-2-GLOBULINS % 12.3 % (7.1-11.8); BETA-1-GLOBULINS 0.46 GM/DL (0.28-0.60); BETA-1-GLOBULINS % 7.2 % (4.7-7.2); BETA-2-GLOBULINS % 4.7 % (3.2-6.5); GAMMA GLOBULIN % 14.7 % (11.1-18.8); GAMMA GLOBULINS 0.94 GM/DL (0.65-1.58)
[2021-07-29 21:49] LABS: TOTAL PROTEIN 6.4 GM/DL (6.4-8.2)
== END ==
LOC: M SFHCCLAY 11:20
PROVIDERS: ATTEND Nurse Practitioner Family
DX: U07.1 COVID-19 (principal); Z79.01 Long term (current) use of anticoagulants; Z79.899 Other long term (current) drug therapy; Z79.51 Long term (current) use of inhaled steroids
CPT/HCPCS: 80053; 82607; 83550; 84165; 85025; G0463

== ENCOUNTER → 2021-08-04 | Outpatient (CLI) | payer MEDICARE, OTHER ==
[~2021-08-04] MED LIST changes: -LOSA50TA28 PO; +LOSA50TA88 PO; -POTA-151 PO; +POTA20TA6 PO
--- NOTE | 2021-08-04 13:48 | REP ---
INDICATION: COVID-19 PNEUMONIA DUE TO COVID. COMPARISON: 07/02/2021 a portable exam TECHNIQUE: PA and lateral FINDINGS: The patchy bilateral lung field opacities seen on the prior exam appear unchanged when the technical differences between the examinations are taken into consideration. No definite new abnormal opacities have developed. There is minimal bilateral CP angle blunting status quo. There is cardiomegaly status quo. There is a large hiatal hernia status quo. There is no change in the osseous structures. IMPRESSION: No significant change other than technique as described above. <Electronically signed by Matt Lazaro > 08/04/21 [id number]
== END ==
LOC: M CLY 13:11
PROVIDERS: ATTEND Nurse Practitioner Family
DX: U07.1 COVID-19 (principal); Z12.82 Encounter for screening for malignant neoplasm of nervous system

== ENCOUNTER → 2021-09-01 | Outpatient (REF) | payer MEDICARE, OTHER ==
[~2021-09-01] MED LIST changes: +LOSA50TA28 PO; -LOSA50TA88 PO; +POTA-151 PO; -POTA20TA6 PO
[2021-09-01 16:25] LABS: BASO # 0.1 10^3/uL (0.0-0.2); BASO % 0.7 % (0.0-1.0); EOS # 0.2 10^3/uL (0.0-0.5); EOS % 2.2 % (0.0-3.0); HEMATOCRIT 34.5 % (36.0-47.0); HEMOGLOBIN 10.6 g/dl (12.0-15.5); LYMPH # 1.5 10^3/uL (1.5-5.0); MEAN CORPUSCULAR HEMOGLOBIN 27.5 pg (27.0-33.0); MEAN CORPUSCULAR HGB CONC 30.7 g/dl (32.0-36.5); MEAN CORPUSCULAR VOLUME 89.6 fl (80.0-96.0); MONO # 0.7 10^3/uL (0.0-0.8); MONO % 8.6 % (2.0-8.0); NEUTROPHILS # 5.8 10^3/uL (1.5-8.5); PLATELET COUNT, AUTOMATED 301 10^3/uL (150-450); RED BLOOD COUNT 3.85 10^6/uL (4.00-5.40); WHITE BLOOD COUNT 8.3 10^3/uL (4.0-10.0)
[2021-09-01 16:57] LABS: CHOLESTEROL LEVEL 154 MG/DL (<200); CHOLESTEROL RISK RATIO 2.483 (<5); FERRITIN 18 NG/ML (8-252); HDL CHOLESTEROL 62 MG/DL (>40); IRON (FE) 43 UG/DL (50-170); LDL CHOLESTEROL 73 MG/DL (<100); NON-HDL-C 92 MG/DL; PERCENT SATURATION 12.3 % (13.2-45.0); TOTAL IRON BINDING CAPACITY 351 UG/DL (250-450); TOTAL PROTEIN 6.4 GM/DL (6.4-8.2); TRIGLYCERIDES LEVEL 96 MG/DL (<150)
[2021-09-03 09:07] LABS: ALBUMIN 3.85 GM/DL (3.29-5.55); ALBUMIN % 60.1 % (55.8-66.1); ALPHA-1-GLOBULIN % 4.8 % (2.9-4.9); ALPHA-1-GLOBULINS 0.31 GM/DL (0.17-0.41); ALPHA-2-GLOBULINS 0.67 GM/DL (0.42-0.99); ALPHA-2-GLOBULINS % 10.5 % (7.1-11.8); BETA-1-GLOBULINS 0.44 GM/DL (0.28-0.60); BETA-1-GLOBULINS % 6.9 % (4.7-7.2); BETA-2-GLOBULINS 0.27 GM/DL (0.19-0.55); BETA-2-GLOBULINS % 4.2 % (3.2-6.5); GAMMA GLOBULIN % 13.5 % (11.1-18.8); GAMMA GLOBULINS 0.86 GM/DL (0.65-1.58)
== END ==
LOC: M SFHCCLAY 11:22
PROVIDERS: ATTEND Nurse Practitioner Family
DX: D50.9 Iron deficiency anemia, unspecified (principal); E78.2 Mixed hyperlipidemia

== ENCOUNTER → 2021-09-17 | Outpatient (REF) | payer MEDICARE, OTHER | LOC: M SFHCCLAY 13:27 | PROVIDERS: ATTEND Family Medicine | DX: Z51.81 Encounter for therapeutic drug level monitoring (principal); Z79.899 Other long term (current) drug therapy ==

== ENCOUNTER → 2021-11-10 | Outpatient (REF) | payer MEDICARE, OTHER ==
[2021-11-10 16:10] LABS: HEMATOCRIT 36.4 % (36.0-47.0); HEMOGLOBIN 11.6 g/dl (12.0-15.5); MEAN CORPUSCULAR HEMOGLOBIN 28.4 pg (27.0-33.0); MEAN CORPUSCULAR HGB CONC 31.9 g/dl (32.0-36.5); PLATELET COUNT, AUTOMATED 235 10^3/uL (150-450); RED BLOOD COUNT 4.09 10^6/uL (4.00-5.40); WHITE BLOOD COUNT 7.9 10^3/uL (4.0-10.0)
[2021-11-10 16:46] LABS: PERCENT SATURATION 11.5 % (13.2-45.0)
== END ==
LOC: M SFHCCLAY 13:38
PROVIDERS: ATTEND Family Medicine
DX: D50.9 Iron deficiency anemia, unspecified (principal)

== ENCOUNTER → 2022-05-21 | Outpatient (REF) | payer MEDICARE, OTHER ==
[2022-05-21 17:41] LABS: BASO % 0.4 % (0.0-1.0); EOS # 0.2 10^3/uL (0.0-0.5); EOS % 1.4 % (0.0-3.0); HEMATOCRIT 36.6 % (36.0-47.0); HEMOGLOBIN 11.4 g/dl (12.0-15.5); LYMPH # 1.3 10^3/uL (1.5-5.0); LYMPH % 12.7 % (24.0-44.0); MEAN CORPUSCULAR HEMOGLOBIN 29.8 pg (27.0-33.0); MEAN CORPUSCULAR HGB CONC 31.1 g/dl (32.0-36.5); MEAN CORPUSCULAR VOLUME 95.6 fl (80.0-96.0); MONO # 0.9 10^3/uL (0.0-0.8); MONO % 8.5 % (2.0-8.0); NEUTROPHILS # 7.9 10^3/uL (1.5-8.5); NEUTROPHILS % 76.3 % (36.0-66.0); PLATELET COUNT, AUTOMATED 246 10^3/uL (150-450); RED BLOOD COUNT 3.83 10^6/uL (4.00-5.40); WHITE BLOOD COUNT 10.4 10^3/uL (4.0-10.0)
[2022-05-21 20:03] LABS: ALBUMIN 3.2 GM/DL (3.2-5.2); ALT/SGPT 15 U/L (12-78); BILIRUBIN,TOTAL 1.1 MG/DL (0.2-1.0); BLOOD UREA NITROGEN 16 MG/DL (7-18); CALCIUM LEVEL 8.4 MG/DL (8.8-10.2); CARBON DIOXIDE LEVEL 26 MEQ/L (21-32); CHLORIDE LEVEL 104 MEQ/L (98-107); CREATININE FOR GFR 0.73 MG/DL (0.55-1.30); GLOMERULAR FILTRATION RATE > 60.0 (>32); GLUCOSE, FASTING 100 MG/DL (70-100); POTASSIUM SERUM 3.5 MEQ/L (3.5-5.1); SODIUM LEVEL 139 MEQ/L (136-145); TOTAL PROTEIN 6.2 GM/DL (6.4-8.2)
== END ==
LOC: M SFHCCLAY 11:42
PROVIDERS: ATTEND Physician Assistant
DX: D72.829 Elevated white blood cell count, unspecified (principal)

== ENCOUNTER → 2022-05-21 | Outpatient (CLI) | payer MEDICARE, OTHER | LOC: M CLY 11:23 | PROVIDERS: ATTEND Physician Assistant | DX: D72.829 Elevated white blood cell count, unspecified (principal); I51.7 Cardiomegaly; K44.9 Diaphragmatic hernia without obstruction or gangrene; R91.8 Other nonspecific abnormal finding of lung field ==

== ENCOUNTER → 2022-06-30 | Outpatient (CLI) | payer MEDICARE, OTHER ==
[~2022-06-30] MED LIST changes: -BENZ-52 PO; +BENZ1TAB5 PO; +FERR325T82; +POTA1TAB23
== END ==
LOC: M CLY 11:43
PROVIDERS: ATTEND Physician Assistant
DX: J18.9 Pneumonia, unspecified organism (principal)

== ENCOUNTER → 2022-06-30 | Outpatient (REF) | payer MEDICARE, OTHER ==
[2022-06-30 19:02] LABS: HEMATOCRIT 35.3 % (36.0-47.0); HEMOGLOBIN 11.2 g/dl (12.0-15.5); MEAN CORPUSCULAR HEMOGLOBIN 30.2 pg (27.0-33.0); MEAN CORPUSCULAR HGB CONC 31.7 g/dl (32.0-36.5); MEAN CORPUSCULAR VOLUME 95.1 fl (80.0-96.0); PLATELET COUNT, AUTOMATED 257 10^3/uL (150-450); RED BLOOD COUNT 3.71 10^6/uL (4.00-5.40); WHITE BLOOD COUNT 7.7 10^3/uL (4.0-10.0)
[2022-06-30 19:19] LABS: CHLORIDE LEVEL 102 MMOL/L (98-107); POTASSIUM SERUM 4.1 MMOL/L (3.5-5.1); SODIUM LEVEL 139 MMOL/L (136-145)
[2022-06-30 19:20] LABS: ALBUMIN 3.3 G/DL (3.2-5.2); CARBON DIOXIDE LEVEL 29 MMOL/L (20-31)
[2022-06-30 19:23] LABS: BLOOD UREA NITROGEN 17 MG/DL (9-23)
[2022-06-30 19:24] LABS: TRIGLYCERIDES LEVEL 140 MG/DL (<150)
[2022-06-30 19:25] LABS: ALKALINE PHOSPHATASE 73 U/L (46-116); CALCIUM LEVEL 8.5 MG/DL (8.3-10.6); GLUCOSE, FASTING 127 MG/DL (74-106)
[2022-06-30 19:26] LABS: BILIRUBIN,TOTAL 0.5 MG/DL (0.3-1.2); TOTAL PROTEIN 5.8 G/DL (5.7-8.2)
[2022-06-30 19:27] LABS: ALT/SGPT 12 U/L (7.0-40); AST/SGOT 17 U/L (<34); CHOLESTEROL LEVEL 138 MG/DL (<200); CHOLESTEROL RISK RATIO 2.42 (<5); CREATININE FOR GFR 0.73 MG/DL (0.55-1.30); GLOMERULAR FILTRATION RATE > 60.0 (>32); HDL CHOLESTEROL 56.9 MG/DL (>40); IRON (FE) 62 UG/DL (50-170); LDL CHOLESTEROL 53.1 MG/DL (<100); NON-HDL-C 81 MG/DL; PERCENT SATURATION 20.4 % (13.2-45.0); TOTAL IRON BINDING CAPACITY 304 UG/DL (250-425)
[2022-06-30 19:31] LABS: FERRITIN 25.6 NG/ML (7.3-270.7)
== END ==
LOC: M SFHCCLAY 11:35
PROVIDERS: ATTEND Nurse Practitioner Family
DX: I48.91 Unspecified atrial fibrillation (principal); E78.2 Mixed hyperlipidemia; D50.9 Iron deficiency anemia, unspecified; J18.9 Pneumonia, unspecified organism

== ENCOUNTER → 2022-08-31 | Outpatient (CLI) | payer MEDICARE, OTHER | LOC: M CARPUL 11:03 | PROVIDERS: ATTEND Internal Medicine Cardiovascular Disease | DX: I71.21 Aneurysm of the ascending aorta, without rupture (principal); I48.91 Unspecified atrial fibrillation; R06.02 Shortness of breath; R60.9 Edema, unspecified ==

== ENCOUNTER → 2022-09-07 | Outpatient (CLI) | payer MEDICARE, OTHER | LOC: M LABSMTC 11:12 | PROVIDERS: ATTEND Internal Medicine Gastroenterology | DX: Z01.812 Encounter for preprocedural laboratory examination (principal); Z20.822 Contact with and (suspected) exposure to COVID-19 ==

== ENCOUNTER 2022-09-09 07:02 | Day surgery (SDC) | payer MEDICARE, OTHER ==
[~2022-09-09] VITALS: Ht 160 cm; Wt 63.7 kg
[~2022-09-09 07:02] MED LIST changes: +NS 1,000 ML IV ONE
[2022-09-09] MEDS ORDERED: propofoL 200 MG/20 ML VIAL As Ordered ONE (08:12)
[2022-09-09] MEDS ORDERED: LIDOCAINE 2% 100MG/5ML SDV (FOR ANES.) As Ordered ONE (08:12)
[2022-09-09 08:50] VITALS: BP 114/64
== END 2022-09-09 09:00 | disposition home or self-care (01) ==
LOC: M OPP 07:02
PROVIDERS: ATTEND Internal Medicine Gastroenterology
DX: D12.6 Benign neoplasm of colon, unspecified (principal); K64.0 First degree hemorrhoids; K57.30 Diverticulosis of large intestine without perforation or abscess without bleeding; R93.3 Abnormal findings on diagnostic imaging of other parts of digestive tract; I48.91 Unspecified atrial fibrillation; K44.9 Diaphragmatic hernia without obstruction or gangrene; F41.9 Anxiety disorder, unspecified; Z79.899 Other long term (current) drug therapy; Z88.5 Allergy status to narcotic agent

== ENCOUNTER → 2023-02-09 | Outpatient (REF) | payer MEDICARE, OTHER ==
[~2023-02-09] MED LIST changes: -NS 1,000 ML IV ONE
[2023-02-09 18:03] LABS: BASO # 0.1 10^3/uL (0.0-0.2); BASO % 0.7 % (0.0-1.0); EOS # 0.1 10^3/uL (0.0-0.5); EOS % 1.8 % (0.0-3.0); HEMATOCRIT 37.4 % (36.0-47.0); HEMOGLOBIN 11.7 g/dl (12.0-15.5); LYMPH # 1.4 10^3/uL (1.5-5.0); LYMPH % 18.6 % (24.0-44.0); MEAN CORPUSCULAR HEMOGLOBIN 29.2 pg (27.0-33.0); MEAN CORPUSCULAR HGB CONC 31.3 g/dl (32.0-36.5); MEAN CORPUSCULAR VOLUME 93.3 fl (80.0-96.0); MONO # 0.5 10^3/uL (0.0-0.8); MONO % 6.8 % (2.0-8.0); NEUTROPHILS # 5.3 10^3/uL (1.5-8.5); NEUTROPHILS % 71.7 % (36.0-66.0); PLATELET COUNT, AUTOMATED 238 10^3/uL (150-450); RED BLOOD COUNT 4.01 10^6/uL (4.00-5.40); WHITE BLOOD COUNT 7.3 10^3/uL (4.0-10.0)
[2023-02-09 18:13] LABS: THYROID STIMULATING HORMONE 1.772 uIU/ML (0.55-4.78)
[2023-02-09 18:17] LABS: ALBUMIN 3.5 G/DL (3.2-5.2); ALKALINE PHOSPHATASE 62 U/L (46-116); ALT/SGPT < 9 U/L (7.0-40); AST/SGOT 14 U/L (<34); BILIRUBIN,TOTAL 0.7 MG/DL (0.3-1.2); BLOOD UREA NITROGEN 20 MG/DL (9-23); CALCIUM LEVEL 8.7 MG/DL (8.3-10.6); CARBON DIOXIDE LEVEL 30 MMOL/L (20-31); CHLORIDE LEVEL 105 MMOL/L (98-107); CHOLESTEROL LEVEL 152 MG/DL (<200); CREATININE FOR GFR 0.78 MG/DL (0.55-1.30); GLOMERULAR FILTRATION RATE > 60.0 (>32); GLUCOSE, FASTING 90 MG/DL (74-106); HDL CHOLESTEROL 50.5 MG/DL (>40); IRON (FE) 85 UG/DL (50-170); LDL CHOLESTEROL 84.1 MG/DL (<100); NON-HDL-C 101.5 MG/DL; PERCENT SATURATION 25.8 % (13.2-45.0); POTASSIUM SERUM 4.8 MMOL/L (3.5-5.1); SODIUM LEVEL 142 MMOL/L (136-145); TOTAL IRON BINDING CAPACITY 329 UG/DL (250-425); TOTAL PROTEIN 5.9 G/DL (5.7-8.2); TRIGLYCERIDES LEVEL 87 MG/DL (<150)
[2023-02-09 18:19] LABS: FREE T4 0.92 NG/DL (0.89-1.76)
== END ==
LOC: M SFHCCLAY 14:12
PROVIDERS: ATTEND Nurse Practitioner Family
DX: R42 Dizziness and giddiness (principal); Z79.899 Other long term (current) drug therapy

== ENCOUNTER → 2023-02-25 | Outpatient (REF) | payer MEDICARE, OTHER | LOC: M SFHCCLAY 16:18 | PROVIDERS: ATTEND Nurse Practitioner Family | DX: R42 Dizziness and giddiness (principal); Z79.899 Other long term (current) drug therapy ==

== ENCOUNTER → 2023-04-09 | Outpatient (REF) | payer MEDICARE, OTHER | LOC: M SFHCCLAY 14:42 | PROVIDERS: ATTEND Nurse Practitioner Family | DX: I10 Essential (primary) hypertension (principal) ==

== ENCOUNTER → 2023-04-12 | Outpatient (REF) | payer MEDICARE, OTHER ==
[2023-04-12 18:08] LABS: IRON (FE) 56 UG/DL (50-170)
[2023-04-13 18:06] LABS: BLOOD UREA NITROGEN 22 MG/DL (9-23); CALCIUM LEVEL 8.7 MG/DL (8.3-10.6); CARBON DIOXIDE LEVEL 30 MMOL/L (20-31); CHLORIDE LEVEL 108 MMOL/L (98-107); CREATININE FOR GFR 0.89 MG/DL (0.55-1.30); GLOMERULAR FILTRATION RATE > 60.0 (>32); GLUCOSE, FASTING 111 MG/DL (74-106); POTASSIUM SERUM 4.9 MMOL/L (3.5-5.1); SODIUM LEVEL 145 MMOL/L (136-145)
== END ==
LOC: M SFHCCLAY 14:46
PROVIDERS: ATTEND Nurse Practitioner Family
DX: R42 Dizziness and giddiness (principal); I10 Essential (primary) hypertension; E55.9 Vitamin D deficiency, unspecified; D64.9 Anemia, unspecified

== ENCOUNTER → 2023-08-17 | Outpatient (CLI) | payer MEDICARE, OTHER | LOC: M SOG 08:00 | PROVIDERS: ATTEND Physician Assistant | DX: M25.552 Pain in left hip (principal); Z87.81 Personal history of (healed) traumatic fracture ==

== ENCOUNTER → 2023-09-02 | Outpatient (REF) | payer MEDICARE, OTHER | LOC: M SFHCCLAY 17:06 | PROVIDERS: ATTEND Nurse Practitioner Family | DX: R19.7 Diarrhea, unspecified (principal) ==

== ENCOUNTER → 2023-09-13 | Outpatient (CLI) | payer MEDICARE, OTHER | LOC: M SOG 09:27 | PROVIDERS: ATTEND Physician Assistant | DX: S72.142D Displaced intertrochanteric fracture of left femur, subsequent encounter for closed fracture with routine healing (principal) ==

== ENCOUNTER → 2023-09-28 | Outpatient (CLI) | payer MEDICARE, OTHER | LOC: M RAD 11:34 | PROVIDERS: ATTEND Physician Assistant | DX: M25.562 Pain in left knee (principal); R60.0 Localized edema ==

== ENCOUNTER → 2023-09-29 | Outpatient (CLI) | payer MEDICARE, OTHER | LOC: M RAD 10:22 | PROVIDERS: ATTEND Physician Assistant | DX: Z96.652 Presence of left artificial knee joint (principal); M25.562 Pain in left knee | CPT/HCPCS: 78315; A9503 ==

== ENCOUNTER → 2023-10-07 | Outpatient (REF) | payer MEDICARE, OTHER | LOC: M SFHCCLAY 15:51 | PROVIDERS: ATTEND Physician Assistant | DX: R19.7 Diarrhea, unspecified (principal) ==

== ENCOUNTER → 2023-10-08 | Outpatient (REF) | payer MEDICARE, OTHER | LOC: M SFHCCLAY 16:44 | PROVIDERS: ATTEND Physician Assistant | DX: R19.7 Diarrhea, unspecified (principal) ==

== ENCOUNTER → 2023-10-12 | Outpatient (REF) | payer MEDICARE, OTHER ==
[2023-10-12 18:31] LABS: BASO # 0.1 10^3/uL (0.0-0.2); BASO % 0.9 % (0.0-1.0); EOS # 0.3 10^3/uL (0.0-0.5); EOS % 3.3 % (0.0-3.0); HEMATOCRIT 33.3 % (36.0-47.0); HEMOGLOBIN 10.3 g/dl (12.0-15.5); LYMPH # 1.3 10^3/uL (1.5-5.0); LYMPH % 15.8 % (24.0-44.0); MEAN CORPUSCULAR HEMOGLOBIN 28.4 pg (27.0-33.0); MEAN CORPUSCULAR HEMOGLOBIN 28.5 pg (27.0-33.0); MEAN CORPUSCULAR HGB CONC 30.9 g/dl (32.0-36.5); MEAN CORPUSCULAR VOLUME 91.7 fl (80.0-96.0); MONO # 0.5 10^3/uL (0.0-0.8); MONO % 6.8 % (2.0-8.0); NEUTROPHILS # 5.8 10^3/uL (1.5-8.5); NEUTROPHILS % 72.7 % (36.0-66.0); PLATELET COUNT, AUTOMATED 322 10^3/uL (150-450); PLATELET COUNT, AUTOMATED 323 10^3/uL (150-450); RED BLOOD COUNT 3.62 10^6/uL (4.00-5.40); RED BLOOD COUNT 3.63 10^6/uL (4.00-5.40)
[2023-10-12 19:01] LABS: ALBUMIN 3.3 G/DL (3.2-5.2); ALKALINE PHOSPHATASE 81 U/L (46-116); ALT/SGPT 15 U/L (7.0-40); AST/SGOT 15 U/L (<34); BILIRUBIN,TOTAL 0.5 MG/DL (0.3-1.2); BLOOD UREA NITROGEN 14 MG/DL (9-23); CALCIUM LEVEL 8.4 MG/DL (8.3-10.6); CARBON DIOXIDE LEVEL 29 MMOL/L (20-31); CHLORIDE LEVEL 106 MMOL/L (98-107); CHOLESTEROL LEVEL 123 MG/DL (<200); CHOLESTEROL RISK RATIO 2.07 (<5); CREATININE FOR GFR 0.61 MG/DL (0.55-1.30); GLOMERULAR FILTRATION RATE > 60.0 (>32); GLUCOSE, FASTING 88 MG/DL (74-106); HDL CHOLESTEROL 59.4 MG/DL (>40); IRON (FE) 27 UG/DL (50-170); LDL CHOLESTEROL 47.6 MG/DL (<100); NON-HDL-C 63.6 MG/DL; PERCENT SATURATION 8.4 % (13.2-45.0); POTASSIUM SERUM 3.7 MMOL/L (3.5-5.1); SODIUM LEVEL 141 MMOL/L (136-145); TOTAL IRON BINDING CAPACITY 322 UG/DL (250-425); TRIGLYCERIDES LEVEL 80 MG/DL (<150)
[2023-10-12 19:02] LABS: ALBUMIN 3.3 G/DL (3.2-5.2); ALKALINE PHOSPHATASE 86 U/L (46-116); ALT/SGPT 10 U/L (7.0-40); AST/SGOT 10 U/L (<34); BILIRUBIN,TOTAL 0.5 MG/DL (0.3-1.2); BLOOD UREA NITROGEN 12 MG/DL (9-23); CALCIUM LEVEL 8.3 MG/DL (8.3-10.6); CARBON DIOXIDE LEVEL 28 MMOL/L (20-31); CHLORIDE LEVEL 108 MMOL/L (98-107); CREATININE FOR GFR 0.61 MG/DL (0.55-1.30); GLOMERULAR FILTRATION RATE > 60.0 (>32); GLUCOSE, FASTING 87 MG/DL (74-106); POTASSIUM SERUM 3.8 MMOL/L (3.5-5.1); SODIUM LEVEL 141 MMOL/L (136-145)
[2023-10-12 19:03] LABS: FREE T4 1.01 NG/DL (0.89-1.76)
[2023-10-12 19:14] LABS: HEMOGLOBIN A1c 5.5 % (4.0-6.0)
== END ==
LOC: M SFHCCLAY 13:25
PROVIDERS: ATTEND Nurse Practitioner Family
DX: Z00.00 Encounter for general adult medical examination without abnormal findings (principal); I10 Essential (primary) hypertension; F41.8 Other specified anxiety disorders; I73.9 Peripheral vascular disease, unspecified; K21.9 Gastro-esophageal reflux disease without esophagitis; I48.91 Unspecified atrial fibrillation; D50.9 Iron deficiency anemia, unspecified; E78.2 Mixed hyperlipidemia; R91.1 Solitary pulmonary nodule; Z79.899 Other long term (current) drug therapy

== ENCOUNTER → 2023-11-10 | Outpatient (REF) | payer MEDICARE, OTHER ==
[2023-11-10 18:11] LABS: BLOOD UREA NITROGEN 11 MG/DL (9-23); CALCIUM LEVEL 8.6 MG/DL (8.3-10.6); CARBON DIOXIDE LEVEL 27 MMOL/L (20-31); CHLORIDE LEVEL 106 MMOL/L (98-107); CREATININE FOR GFR 0.72 MG/DL (0.55-1.30); GLOMERULAR FILTRATION RATE > 60.0 (>32); GLUCOSE, FASTING 91 MG/DL (74-106); POTASSIUM SERUM 3.2 MMOL/L (3.5-5.1); SODIUM LEVEL 143 MMOL/L (136-145)
== END ==
LOC: M SFHCCLAY 14:01
PROVIDERS: ATTEND Nurse Practitioner Family
DX: A04.72 Enterocolitis due to Clostridium difficile, not specified as recurrent (principal)

== ENCOUNTER → 2024-01-04 | Outpatient (REF) | payer MEDICARE, OTHER ==
[~2024-01-04] MED LIST changes: +ESOM1CAP20 PO; -ESOM1CAP5 PO
== END ==
LOC: M LAB REF 16:37
PROVIDERS: ATTEND Internal Medicine Gastroenterology
DX: R19.7 Diarrhea, unspecified (principal)

== ENCOUNTER 2024-01-07 12:53 | Observation (INO) | payer MEDICARE, OTHER ==
[~2024-01-07] VITALS: Ht 160 cm; Wt 64.4 kg
[~2024-01-07 12:53] MED LIST changes: -FERR325T82; +FERR325T82 PO; -POTA1TAB23; +POTA1TAB23 PO
[2024-01-07 14:48] LABS: BASO # 0.1 10^3/uL (0.0-0.2); BASO % 0.6 % (0.0-1.0); EOS # 0.1 10^3/uL (0.0-0.5); EOS % 1.5 % (0.0-3.0); HEMOGLOBIN 12.2 g/dl (12.0-15.5); LYMPH # 1.3 10^3/uL (1.5-5.0); LYMPH % 15.5 % (24.0-44.0); MEAN CORPUSCULAR HEMOGLOBIN 28.4 pg (27.0-33.0); MEAN CORPUSCULAR HGB CONC 32.1 g/dl (32.0-36.5); MEAN CORPUSCULAR VOLUME 88.6 fl (80.0-96.0); MONO # 0.5 10^3/uL (0.0-0.8); MONO % 5.3 % (2.0-8.0); NEUTROPHILS # 6.5 10^3/uL (1.5-8.5); NEUTROPHILS % 76.6 % (36.0-66.0); PLATELET COUNT, AUTOMATED 295 10^3/uL (150-450); RED BLOOD COUNT 4.29 10^6/uL (4.00-5.40); WHITE BLOOD COUNT 8.5 10^3/uL (4.0-10.0)
[2024-01-07] MEDS ORDERED: MIDO2.5T PO (14:55)
[2024-01-07] MEDS ORDERED: FLUD0.1T PO (14:55)
[2024-01-07 15:04] LABS: LIPASE 31 U/L (12-53)
[2024-01-07 15:04] LABS: APPEARANCE, URINE HAZY (CLEAR); BACTERIA, URINE AUTO NEGATIVE (NEGATIVE); BILIRUBIN, URINE AUTO NEGATIVE (NEGATIVE); BLOOD, URINE BLOOD NEGATIVE (NEGATIVE); CALCIUM OXALATE CRYSTALS SMALL; COLOR, URINE YELLOW (YELLOW); GLUCOSE, URINE (UA) AUTO NEGATIVE (NEGATIVE); KETONE, URINE AUTO NEGATIVE (NEGATIVE); LEUKOCYTE ESTERASE, URINE AUTO NEGATIVE (NEGATIVE); MUCUS, URINE SMALL (NEGATIVE); NITRITE, URINE AUTO NEGATIVE (NEGATIVE); PROTEIN, URINE AUTO NEGATIVE (NEGATIVE); RBC, URINE AUTO 26 /HPF (0-3); SPECIFIC GRAVITY URINE AUTO 1.018 (1.002-1.035); SQUAMOUS EPITHELIAL CELL UR AU 2 /HPF (0-6); UROBILINOGEN, URINE AUTO 0.2 mg/dL (0.0-2.0); WBC, URINE AUTO 2 /HPF (0-3)
[2024-01-07 15:07] LABS: ALBUMIN 3.2 G/DL (3.2-5.2); ALKALINE PHOSPHATASE 70 U/L (46-116); ALT/SGPT 11 U/L (7.0-40); AST/SGOT < 8 U/L (<34); BILIRUBIN,DIRECT 0.2 MG/DL (<0.4); BILIRUBIN,TOTAL 0.5 MG/DL (0.3-1.2); BLOOD UREA NITROGEN 14 MG/DL (9-23); CALCIUM LEVEL 8.9 MG/DL (8.3-10.6); CARBON DIOXIDE LEVEL 27 MMOL/L (20-31); CHLORIDE LEVEL 109 MMOL/L (98-107); CREATININE FOR GFR 0.75 MG/DL (0.55-1.30); GLOMERULAR FILTRATION RATE > 60.0 (>32); GLUCOSE, FASTING 98 MG/DL (74-106); SODIUM LEVEL 142 MMOL/L (136-145)
[2024-01-07] MEDS: NS 500 ML IV ONE (16:35)
[2024-01-07] MEDS ORDERED: ELIQ2.5T PO (17:20)
[2024-01-07] MEDS ORDERED: VITA200032 PO (17:20)
[2024-01-07] MEDS ORDERED: ASCO500T PO (17:20)
[2024-01-07] MEDS ORDERED: ESOM40CA35 PO (17:28)
[2024-01-07] MEDS ORDERED: VANC250C3 PO (17:28)
[2024-01-07] MEDS ORDERED: HOME MED LIST COMPLETE! XX SCH (17:30)
[2024-01-07] MEDS ORDERED: ISOVUE-370 76% 100ML VIAL As Ordered ONE (17:35)
[2024-01-07] MEDS ORDERED: ACETAMINOPHEN TAB 650MG DOSE (2X325MG) PO PRN (18:25)
[2024-01-07] MEDS: NS 1,000 ML IV SCH (19:05)
[2024-01-07 21:05] VITALS: BP 113/61; TEMP 98.1; O2SAT 93
[2024-01-07 22:15] VITALS: BP_SYST 113; BP_SYST 114; BP_SYST 116; BP_DIAS 62; BP_DIAS 71; BP_DIAS 75
[2024-01-07] MEDS: APIXABAN 2.5 MG TAB (ELIQUIS) PO SCH (22:31)
[2024-01-07] MEDS: traZODone 50 MG TAB PO SCH (22:31)
[2024-01-08] VITALS: BP 108/61; TEMP 98.1; O2SAT 96
[2024-01-08 05:30] VITALS: BP_SYST 108; BP_SYST 91; BP_SYST 93; BP_DIAS 58; BP_DIAS 59; BP_DIAS 60; TEMP 98.1; O2SAT 94
[2024-01-08 06:30] LABS: BASO # 0.1 10^3/uL (0.0-0.2); EOS # 0.2 10^3/uL (0.0-0.5); EOS % 2.7 % (0.0-3.0); HEMATOCRIT 37.4 % (36.0-47.0); HEMOGLOBIN 11.8 g/dl (12.0-15.5); LYMPH # 1.5 10^3/uL (1.5-5.0); LYMPH % 19.1 % (24.0-44.0); MEAN CORPUSCULAR HEMOGLOBIN 27.8 pg (27.0-33.0); MEAN CORPUSCULAR HGB CONC 31.6 g/dl (32.0-36.5); MONO # 0.5 10^3/uL (0.0-0.8); MONO % 6.2 % (2.0-8.0); NEUTROPHILS # 5.6 10^3/uL (1.5-8.5); NEUTROPHILS % 70.6 % (36.0-66.0); PLATELET COUNT, AUTOMATED 280 10^3/uL (150-450); RED BLOOD COUNT 4.25 10^6/uL (4.00-5.40); WHITE BLOOD COUNT 7.9 10^3/uL (4.0-10.0)
[2024-01-08 06:47] LABS: BLOOD UREA NITROGEN 8 MG/DL (9-23); CALCIUM LEVEL 8.2 MG/DL (8.3-10.6); CARBON DIOXIDE LEVEL 23 MMOL/L (20-31); CHLORIDE LEVEL 112 MMOL/L (98-107); CREATININE FOR GFR 0.59 MG/DL (0.55-1.30); GLOMERULAR FILTRATION RATE > 60.0 (>32); GLUCOSE, FASTING 90 MG/DL (74-106); MAGNESIUM LEVEL 1.6 MG/DL (1.8-2.4); POTASSIUM SERUM 3.7 MMOL/L (3.5-5.1); SODIUM LEVEL 143 MMOL/L (136-145)
[2024-01-08] MEDS: MAG SULF 1GM/100ML (MAG RUN) 1 GM in IV 1 EA IV SCH (08:22)
[2024-01-08] MEDS: ASCORBIC ACID 500 MG TAB PO SCH (08:25)
[2024-01-08] MEDS: POTASSIUM CHLORIDE 10MEQ SR TABLET PO SCH (08:25)
[2024-01-08] MEDS: PANTOPRAZOLE 40MG TAB (PROTONIX) PO SCH (08:25)
[2024-01-08] MEDS: DULoxetine 30MG CAPSULE (CYMBALTA) PO SCH (08:25)
[2024-01-08] MEDS: VITAMIN D 1,000 INTERNATIONAL UNITS TABLET PO SCH (08:25)
[2024-01-08] MEDS: FERROUS SULFATE 325MG TAB PO SCH (08:25)
[2024-01-08] MEDS: MIDODRINE 2.5 MG TAB PO SCH (08:26)
[2024-01-08] MEDS: FLUDROCORTISONE ACETATE 0.1 MG TAB PO SCH (08:26)
[2024-01-08] MEDS: LACTOBACILLUS ACIDOPHILUS CAP (BACID) PO SCH (09:00)
[2024-01-08 12:00] VITALS: BP 115/81; TEMP 97.9; O2SAT 96
[2024-01-08] MEDS: METAMUCIL (PSYLLIUM) PACKET PO SCH (13:12)
[2024-01-08 14:00] VITALS: BP_SYST 100; BP_SYST 86; BP_SYST 89; BP_DIAS 48; BP_DIAS 51
[2024-01-08 15:49] VITALS: BP 118/69; TEMP 98.1; O2SAT 93
[2024-01-08 16:00] LABS: CLOSTRIDIUM DIFFICILE PCR POSITIVE (NEGATIVE)
[2024-01-08] MEDS ORDERED: VANCOMYCIN 125MG CAPSULE PO SCH (18:15)
[2024-01-08 20:00] VITALS: BP_SYST 116; BP_SYST 118; BP_DIAS 60; BP_DIAS 62; BP_DIAS 69; TEMP 97.7; O2SAT 94
[2024-01-09] VITALS: BP 107/62; TEMP 97.9; O2SAT 96
[2024-01-09 04:00] VITALS: BP_SYST 108; BP_SYST 86; BP_DIAS 59; BP_DIAS 61; TEMP 97.9; O2SAT 95
[2024-01-09 06:54] LABS: BASO # 0.1 10^3/uL (0.0-0.2); BASO % 0.8 % (0.0-1.0); EOS # 0.2 10^3/uL (0.0-0.5); EOS % 3.5 % (0.0-3.0); HEMATOCRIT 35.9 % (36.0-47.0); HEMOGLOBIN 11.5 g/dl (12.0-15.5); LYMPH # 1.1 10^3/uL (1.5-5.0); LYMPH % 16.5 % (24.0-44.0); MEAN CORPUSCULAR HEMOGLOBIN 28.3 pg (27.0-33.0); MEAN CORPUSCULAR VOLUME 88.4 fl (80.0-96.0); MONO # 0.4 10^3/uL (0.0-0.8); MONO % 5.9 % (2.0-8.0); NEUTROPHILS # 4.9 10^3/uL (1.5-8.5); NEUTROPHILS % 72.8 % (36.0-66.0); PLATELET COUNT, AUTOMATED 260 10^3/uL (150-450); RED BLOOD COUNT 4.06 10^6/uL (4.00-5.40); WHITE BLOOD COUNT 6.7 10^3/uL (4.0-10.0)
[2024-01-09 07:18] LABS: BLOOD UREA NITROGEN 9 MG/DL (9-23); CALCIUM LEVEL 8.2 MG/DL (8.3-10.6); CARBON DIOXIDE LEVEL 28 MMOL/L (20-31); CHLORIDE LEVEL 111 MMOL/L (98-107); CREATININE FOR GFR 0.61 MG/DL (0.55-1.30); GLOMERULAR FILTRATION RATE > 60.0 (>32); GLUCOSE, FASTING 108 MG/DL (74-106); MAGNESIUM LEVEL 1.7 MG/DL (1.8-2.4); POTASSIUM SERUM 3.5 MMOL/L (3.5-5.1); SODIUM LEVEL 144 MMOL/L (136-145)
[2024-01-09 08:00] VITALS: BP 99/61; TEMP 98.1; O2SAT 95
[2024-01-09] MEDS: MIDODRINE 5 MG TAB PO SCH (08:51)
[2024-01-09 12:00] VITALS: BP 137/70; TEMP 98.4; O2SAT 96
[2024-01-09] MEDS: MAG SULF 1GM/100ML (MAG RUN) 1 GM in IV 1 EA IV SCH (15:39)
[2024-01-09] MEDS: POTASSIUM CHLORIDE 10MEQ SR TABLET PO ONE (15:40)
[2024-01-09 17:14] VITALS: BP 134/67; TEMP 98.4; O2SAT 94
[2024-01-09 20:00] VITALS: BP 129/71; TEMP 97.7; O2SAT 92
[2024-01-09] MEDS: METAMUCIL (PSYLLIUM) PACKET PO SCH (20:44)
[2024-01-10] VITALS (11 sets, daily range): BP systolic 95–132; BP diastolic 56–92; TEMP 97.5–98.1; O2SAT 93–97
[2024-01-10 06:56] LABS: BASO % 0.4 % (0.0-1.0); EOS # 0.2 10^3/uL (0.0-0.5); EOS % 2.9 % (0.0-3.0); HEMOGLOBIN 12.2 g/dl (12.0-15.5); LYMPH # 1.2 10^3/uL (1.5-5.0); LYMPH % 15.4 % (24.0-44.0); MEAN CORPUSCULAR HEMOGLOBIN 28.1 pg (27.0-33.0); MEAN CORPUSCULAR HGB CONC 32.1 g/dl (32.0-36.5); MEAN CORPUSCULAR VOLUME 87.6 fl (80.0-96.0); MONO # 0.4 10^3/uL (0.0-0.8); MONO % 5.8 % (2.0-8.0); NEUTROPHILS # 5.7 10^3/uL (1.5-8.5); PLATELET COUNT, AUTOMATED 252 10^3/uL (150-450); RED BLOOD COUNT 4.34 10^6/uL (4.00-5.40); WHITE BLOOD COUNT 7.6 10^3/uL (4.0-10.0)
[2024-01-10 07:44] LABS: BLOOD UREA NITROGEN 10 MG/DL (9-23); CALCIUM LEVEL 8.6 MG/DL (8.3-10.6); CARBON DIOXIDE LEVEL 30 MMOL/L (20-31); CHLORIDE LEVEL 109 MMOL/L (98-107); CREATININE FOR GFR 0.64 MG/DL (0.55-1.30); GLOMERULAR FILTRATION RATE > 60.0 (>32); GLUCOSE, FASTING 93 MG/DL (74-106); POTASSIUM SERUM 4.3 MMOL/L (3.5-5.1); SODIUM LEVEL 144 MMOL/L (136-145)
[2024-01-10] MEDS: METAMUCIL (PSYLLIUM) PACKET PO ONE (12:08)
[2024-01-10] MEDS: traZODone 50 MG TAB PO SCH (23:02)
[2024-01-11 03:37] VITALS: BP 120/66; TEMP 98.1; O2SAT 94
[2024-01-11 05:54] LABS: BASO % 0.6 % (0.0-1.0); EOS # 0.2 10^3/uL (0.0-0.5); EOS % 3.1 % (0.0-3.0); HEMATOCRIT 35.9 % (36.0-47.0); HEMOGLOBIN 11.5 g/dl (12.0-15.5); LYMPH # 1.2 10^3/uL (1.5-5.0); LYMPH % 16.7 % (24.0-44.0); MEAN CORPUSCULAR HEMOGLOBIN 28.2 pg (27.0-33.0); MONO # 0.5 10^3/uL (0.0-0.8); NEUTROPHILS # 5.2 10^3/uL (1.5-8.5); NEUTROPHILS % 72.3 % (36.0-66.0); PLATELET COUNT, AUTOMATED 235 10^3/uL (150-450); RED BLOOD COUNT 4.08 10^6/uL (4.00-5.40); WHITE BLOOD COUNT 7.1 10^3/uL (4.0-10.0)
[2024-01-11 06:46] LABS: BLOOD UREA NITROGEN 17 MG/DL (9-23); CALCIUM LEVEL 8.5 MG/DL (8.3-10.6); CARBON DIOXIDE LEVEL 29 MMOL/L (20-31); CHLORIDE LEVEL 109 MMOL/L (98-107); CREATININE FOR GFR 0.61 MG/DL (0.55-1.30); GLOMERULAR FILTRATION RATE > 60.0 (>32); GLUCOSE, FASTING 99 MG/DL (74-106); MAGNESIUM LEVEL 1.7 MG/DL (1.8-2.4); POTASSIUM SERUM 4.1 MMOL/L (3.5-5.1); SODIUM LEVEL 143 MMOL/L (136-145)
[2024-01-11 07:38] VITALS: BP 134/68; TEMP 98.1; O2SAT 93
[2024-01-11] MEDS: MAG SULF 1GM/100ML (MAG RUN) 1 GM in IV 1 EA IV ONE (07:45)
[2024-01-11 08:00] VITALS: BP 119/67; TEMP 97.7; O2SAT 93
[2024-01-11] MEDS ORDERED: RISATAB3 PO (10:27)
[2024-01-11] MEDS ORDERED: MIDO5TA PO (10:27)
[2024-01-11] MEDS ORDERED: META1POW PO (10:27)
[2024-01-11 12:00] VITALS: BP 122/62; TEMP 97.7; O2SAT 94
== END 2024-01-11 12:25 | disposition home or self-care (01) ==
LOC: M ED 12:53 → INTOOBSV 17:29 → M ED INP 17:29 → M MSPAV 21:05
PROVIDERS: ADMIT Student in an Organized Health Care Education/Training Program; ATTEND Internal Medicine
DX: A04.72 Enterocolitis due to Clostridium difficile, not specified as recurrent (principal); I95.1 Orthostatic hypotension; K52.29 Other allergic and dietetic gastroenteritis and colitis; E83.42 Hypomagnesemia; R29.6 Repeated falls; R53.81 Other malaise; I48.0 Paroxysmal atrial fibrillation; D50.9 Iron deficiency anemia, unspecified; D64.9 Anemia, unspecified; K21.9 Gastro-esophageal reflux disease without esophagitis; F41.9 Anxiety disorder, unspecified; F32.A Depression, unspecified; Z79.01 Long term (current) use of anticoagulants; Z79.899 Other long term (current) drug therapy; I50.9 Heart failure, unspecified; R39.81 Functional urinary incontinence; R15.9 Full incontinence of feces; Z88.5 Allergy status to narcotic agent; Z88.8 Allergy status to other drugs, medicaments and biological substances
CPT/HCPCS: 36415; 70450; 74177; 80048; 80076; 81001; 83690; 83735; 85025; 87324; 87486; 87581; 87633; 87798; 93971; 96361; 96365; 96366; 96374; 97116; 97161; 97165; 97530; 97535; 99285; G0378; J0565; J3475; Q9967

== ENCOUNTER 2024-01-11 12:25 | Outpatient (CLI) | payer MEDICARE, OTHER ==
[~2024-01-11] VITALS: Ht 157.5 cm; Wt 64.4 kg
[~2024-01-11 12:25] MED LIST changes: +ASCO500T PO; +ELIQ2.5T PO; +ESOM40CA35 PO; +FLUD0.1T PO; +META1POW PO; +MIDO2.5T PO; +MIDO5TA PO; +RISATAB3 PO; +VANC250C3 PO; +VITA200032 PO
[2024-01-11 13:49] VITALS: BP 123/61; O2SAT 95
[2024-01-11] MEDS: BEZLOTOXUMAB 600 MG in NS 100 ML IV ONE (13:55)
[2024-01-11 15:04] VITALS: BP 121/57; O2SAT 96
== END 2024-01-11 15:26 | disposition home or self-care (01) ==
LOC: M OPCLI4PV 12:25 → M MSPAV 12:26 → M OPCLI4PV 15:26
PROVIDERS: ATTEND Internal Medicine
DX: A04.72 Enterocolitis due to Clostridium difficile, not specified as recurrent (principal); Z88.5 Allergy status to narcotic agent

== ENCOUNTER → 2024-01-26 | Outpatient (REF) | payer MEDICARE, OTHER ==
[2024-01-26 17:28] LABS: BASO % 0.5 % (0.0-1.0); EOS # 0.2 10^3/uL (0.0-0.5); EOS % 2.2 % (0.0-3.0); HEMATOCRIT 38.4 % (36.0-47.0); HEMOGLOBIN 12.3 g/dl (12.0-15.5); LYMPH # 1.3 10^3/uL (1.5-5.0); LYMPH % 15.1 % (24.0-44.0); MEAN CORPUSCULAR HEMOGLOBIN 28.7 pg (27.0-33.0); MEAN CORPUSCULAR VOLUME 89.5 fl (80.0-96.0); MONO # 0.6 10^3/uL (0.0-0.8); MONO % 7.2 % (2.0-8.0); NEUTROPHILS # 6.2 10^3/uL (1.5-8.5); NEUTROPHILS % 74.8 % (36.0-66.0); PLATELET COUNT, AUTOMATED 257 10^3/uL (150-450); RED BLOOD COUNT 4.29 10^6/uL (4.00-5.40); WHITE BLOOD COUNT 8.3 10^3/uL (4.0-10.0)
[2024-01-26 17:53] LABS: ALBUMIN 3.5 G/DL (3.2-5.2); ALKALINE PHOSPHATASE 67 U/L (46-116); ALT/SGPT 14 U/L (7.0-40); AST/SGOT < 8 U/L (<34); BILIRUBIN,TOTAL 0.6 MG/DL (0.3-1.2); BLOOD UREA NITROGEN 21 MG/DL (9-23); CALCIUM LEVEL 9.2 MG/DL (8.3-10.6); CARBON DIOXIDE LEVEL 29 MMOL/L (20-31); CHLORIDE LEVEL 107 MMOL/L (98-107); CREATININE FOR GFR 0.76 MG/DL (0.55-1.30); GLOMERULAR FILTRATION RATE > 60.0 (>32); GLUCOSE, FASTING 86 MG/DL (74-106); IRON (FE) 110 UG/DL (50-170); MAGNESIUM LEVEL 1.7 MG/DL (1.8-2.4); PERCENT SATURATION 32.9 % (13.2-45.0); POTASSIUM SERUM 4.5 MMOL/L (3.5-5.1); SODIUM LEVEL 140 MMOL/L (136-145); TOTAL IRON BINDING CAPACITY 334 UG/DL (250-425); TOTAL PROTEIN 6.1 G/DL (5.7-8.2)
[2024-01-26 17:55] LABS: FERRITIN 26.3 NG/ML (7.3-270.7)
== END ==
LOC: M SFHCCLAY 11:52
PROVIDERS: ATTEND Physician Assistant
DX: R53.1 Weakness (principal); R29.6 Repeated falls; I95.1 Orthostatic hypotension

== ENCOUNTER → 2024-02-29 | Outpatient (REF) | payer MEDICARE, OTHER ==
[2024-02-29 19:07] LABS: CLOSTRIDIUM DIFFICILE PCR POSITIVE (NEGATIVE)
== END ==
LOC: M SFHCPLAZ 16:59
PROVIDERS: ATTEND Internal Medicine Infectious Disease
DX: A04.72 Enterocolitis due to Clostridium difficile, not specified as recurrent (principal)

== ENCOUNTER → 2024-03-14 | Outpatient (CLI) | payer MEDICARE, OTHER ==
[2024-03-14 15:27] LABS: BASO # 0.1 10^3/uL (0.0-0.2); BASO % 0.7 % (0.0-1.0); EOS # 0.3 10^3/uL (0.0-0.5); EOS % 3.2 % (0.0-3.0); HEMATOCRIT 37.5 % (36.0-47.0); LYMPH # 1.6 10^3/uL (1.5-5.0); LYMPH % 17.2 % (24.0-44.0); MEAN CORPUSCULAR HEMOGLOBIN 30.1 pg (27.0-33.0); MONO # 0.7 10^3/uL (0.0-0.8); MONO % 7.7 % (2.0-8.0); NEUTROPHILS # 6.4 10^3/uL (1.5-8.5); NEUTROPHILS % 70.6 % (36.0-66.0); PLATELET COUNT, AUTOMATED 296 10^3/uL (150-450); RED BLOOD COUNT 3.99 10^6/uL (4.00-5.40); WHITE BLOOD COUNT 9.1 10^3/uL (4.0-10.0)
[2024-03-14 15:39] LABS: ERYTHROCYTE SEDIMENTATION RATE 7 mm/hr (0-30)
[2024-03-14 15:51] LABS: C REACTIVE PROTEIN QUANTITATIV < 0.40 MG/DL (<1.0)
[2024-03-14 15:53] LABS: ALBUMIN 3.6 G/DL (3.2-5.2); ALKALINE PHOSPHATASE 64 U/L (46-116); ALT/SGPT 12 U/L (7.0-40); AST/SGOT < 8 U/L (<34); BILIRUBIN,TOTAL 0.6 MG/DL (0.3-1.2); BLOOD UREA NITROGEN 23 MG/DL (9-23); CALCIUM LEVEL 9.4 MG/DL (8.3-10.6); CARBON DIOXIDE LEVEL 28 MMOL/L (20-31); CHLORIDE LEVEL 111 MMOL/L (98-107); CREATININE FOR GFR 0.86 MG/DL (0.55-1.30); GLOMERULAR FILTRATION RATE > 60.0 (>32); GLUCOSE, FASTING 75 MG/DL (74-106); MAGNESIUM LEVEL 1.9 MG/DL (1.8-2.4); POTASSIUM SERUM 5.1 MMOL/L (3.5-5.1); SODIUM LEVEL 145 MMOL/L (136-145); TOTAL PROTEIN 6.2 G/DL (5.7-8.2)
== END ==
LOC: M PLALAB 12:35
PROVIDERS: ATTEND Internal Medicine Infectious Disease
DX: A04.72 Enterocolitis due to Clostridium difficile, not specified as recurrent (principal); E83.42 Hypomagnesemia

== ENCOUNTER → 2024-07-05 | Outpatient (REF) | payer MEDICARE, OTHER ==
[~2024-07-05] MED LIST changes: -MIDO2.5T PO; +MIDO2.5T3 PO; +VANC250C12 PO; -VANC250C3 PO
[2024-07-05 17:18] LABS: BASO # 0.1 10^3/uL (0.0-0.2); BASO % 0.5 % (0.0-1.0); EOS # 0.1 10^3/uL (0.0-0.5); EOS % 1.3 % (0.0-3.0); HEMATOCRIT 33.2 % (36.0-47.0); LYMPH # 1.1 10^3/uL (1.5-5.0); MEAN CORPUSCULAR HEMOGLOBIN 30.4 pg (27.0-33.0); MEAN CORPUSCULAR HGB CONC 33.1 g/dl (32.0-36.5); MEAN CORPUSCULAR VOLUME 91.7 fl (80.0-96.0); MONO # 0.7 10^3/uL (0.0-0.8); MONO % 7.3 % (2.0-8.0); NEUTROPHILS # 8.1 10^3/uL (1.5-8.5); NEUTROPHILS % 79.5 % (36.0-66.0); PLATELET COUNT, AUTOMATED 275 10^3/uL (150-450); RED BLOOD COUNT 3.62 10^6/uL (4.00-5.40); WHITE BLOOD COUNT 10.2 10^3/uL (4.0-10.0)
[2024-07-05 17:42] LABS: ALBUMIN 3.2 G/DL (3.2-5.2); ALKALINE PHOSPHATASE 75 U/L (35-104); ALT/SGPT 17 U/L (7.0-40); AST/SGOT 11 U/L (<34); BILIRUBIN,TOTAL 0.7 MG/DL (0.3-1.2); BLOOD UREA NITROGEN 18 MG/DL (9-23); CALCIUM LEVEL 9.3 MG/DL (8.3-10.6); CARBON DIOXIDE LEVEL 25 MMOL/L (20-31); CHLORIDE LEVEL 110 MMOL/L (98-107); GLOMERULAR FILTRATION RATE > 60.0 (>32); GLUCOSE, FASTING 105 MG/DL (74-106); MAGNESIUM LEVEL 1.7 MG/DL (1.8-2.4); POTASSIUM SERUM 3.1 MMOL/L (3.5-5.1); SODIUM LEVEL 142 MMOL/L (136-145); TOTAL PROTEIN 6.3 G/DL (5.7-8.2)
== END ==
LOC: M SFHCCLAY 15:01
PROVIDERS: ATTEND Nurse Practitioner Family
DX: R29.6 Repeated falls (principal); E83.42 Hypomagnesemia; L03.90 Cellulitis, unspecified; R60.0 Localized edema; I50.32 Chronic diastolic (congestive) heart failure

== ENCOUNTER → 2024-07-05 | Outpatient (CLI) | payer MEDICARE, OTHER | LOC: M CLY 15:05 | PROVIDERS: ATTEND Nurse Practitioner Family | DX: R29.6 Repeated falls (principal) ==

== ENCOUNTER → 2024-09-22 | Outpatient (REF) | payer MEDICARE, OTHER ==
[2024-09-22 18:15] LABS: ALBUMIN 3.4 G/DL (3.2-5.2); ALKALINE PHOSPHATASE 78 U/L (35-104); ALT/SGPT < 9 U/L (7.0-40); AST/SGOT 9 U/L (<34); BILIRUBIN,TOTAL 0.4 MG/DL (0.3-1.2); BLOOD UREA NITROGEN 14 MG/DL (9-23); CALCIUM LEVEL 8.9 MG/DL (8.3-10.6); CARBON DIOXIDE LEVEL 26 MMOL/L (20-31); CHLORIDE LEVEL 106 MMOL/L (98-107); CREATININE FOR GFR 0.66 MG/DL (0.55-1.30); GLOMERULAR FILTRATION RATE > 60.0 (>32); GLUCOSE, FASTING 82 MG/DL (74-106); MAGNESIUM LEVEL 1.8 MG/DL (1.8-2.4); POTASSIUM SERUM 4.3 MMOL/L (3.5-5.1); SODIUM LEVEL 143 MMOL/L (136-145); TOTAL PROTEIN 6.3 G/DL (5.7-8.2)
[2024-09-22 18:32] LABS: BASO # 0.1 10^3/uL (0.0-0.2); BASO % 0.5 % (0.0-1.0); EOS # 0.1 10^3/uL (0.0-0.5); EOS % 1.4 % (0.0-3.0); HEMATOCRIT 37.5 % (36.0-47.0); HEMOGLOBIN 11.5 g/dl (12.0-15.5); LYMPH # 1.2 10^3/uL (1.5-5.0); LYMPH % 13.1 % (24.0-44.0); MEAN CORPUSCULAR HEMOGLOBIN 28.4 pg (27.0-33.0); MEAN CORPUSCULAR HGB CONC 30.7 g/dl (32.0-36.5); MEAN CORPUSCULAR VOLUME 92.6 fl (80.0-96.0); MONO # 0.6 10^3/uL (0.0-0.8); MONO % 5.8 % (2.0-8.0); NEUTROPHILS # 7.5 10^3/uL (1.5-8.5); NEUTROPHILS % 78.8 % (36.0-66.0); PLATELET COUNT, AUTOMATED 287 10^3/uL (150-450); RED BLOOD COUNT 4.05 10^6/uL (4.00-5.40); WHITE BLOOD COUNT 9.5 10^3/uL (4.0-10.0)
[2024-09-22 18:42] LABS: HEMOGLOBIN A1c 5.1 % (4.0-6.0)
== END ==
LOC: M SFHCCLAY 11:37
PROVIDERS: ATTEND Nurse Practitioner Family
DX: I48.91 Unspecified atrial fibrillation (principal); E83.42 Hypomagnesemia; R60.0 Localized edema; Z79.899 Other long term (current) drug therapy

== ENCOUNTER → 2024-11-06 | Outpatient (REF) | payer MEDICARE, OTHER ==
[2024-11-06 18:57] LABS: BASO # 0.1 10^3/uL (0.0-0.2); BASO % 0.7 % (0.0-1.0); EOS # 0.3 10^3/uL (0.0-0.5); HEMATOCRIT 37.4 % (36.0-47.0); HEMOGLOBIN 11.7 g/dl (12.0-15.5); LYMPH # 1.1 10^3/uL (1.5-5.0); LYMPH % 10.7 % (24.0-44.0); MEAN CORPUSCULAR HEMOGLOBIN 28.4 pg (27.0-33.0); MEAN CORPUSCULAR HGB CONC 31.3 g/dl (32.0-36.5); MEAN CORPUSCULAR VOLUME 90.8 fl (80.0-96.0); MONO # 0.6 10^3/uL (0.0-0.8); MONO % 5.6 % (2.0-8.0); NEUTROPHILS % 79.3 % (36.0-66.0); PLATELET COUNT, AUTOMATED 403 10^3/uL (150-450); RED BLOOD COUNT 4.12 10^6/uL (4.00-5.40)
[2024-11-06 19:28] LABS: ALBUMIN 2.9 G/DL (3.2-5.2); ALKALINE PHOSPHATASE 83 U/L (35-104); ALT/SGPT < 9 U/L (7.0-40); AST/SGOT 9 U/L (<34); BILIRUBIN,TOTAL 0.4 MG/DL (0.3-1.2); BLOOD UREA NITROGEN 18 MG/DL (9-23); CALCIUM LEVEL 9.1 MG/DL (8.3-10.6); CARBON DIOXIDE LEVEL 29 MMOL/L (20-31); CHLORIDE LEVEL 103 MMOL/L (98-107); CREATININE FOR GFR 0.74 MG/DL (0.55-1.30); GLOMERULAR FILTRATION RATE > 60.0 (>32); GLUCOSE, FASTING 87 MG/DL (74-106); POTASSIUM SERUM 4.4 MMOL/L (3.5-5.1); SODIUM LEVEL 143 MMOL/L (136-145); TOTAL PROTEIN 6.5 G/DL (5.7-8.2)
[2024-11-06 19:35] LABS: THYROID STIMULATING HORMONE 1.725 uIU/ML (0.55-4.78)
== END ==
LOC: M SFHCCLAY 10:46
PROVIDERS: ATTEND Physician Assistant
DX: R53.1 Weakness (principal); R06.02 Shortness of breath

== ENCOUNTER → 2024-11-06 | Outpatient (REF) | payer MEDICARE, OTHER ==
[2024-11-07 10:18] LABS: CHOLESTEROL RISK RATIO 2.99 (<5); HDL CHOLESTEROL 44.7 MG/DL (>40); LDL CHOLESTEROL 72.5 MG/DL (<100); NON-HDL-C 89.3 MG/DL
[2024-11-07 10:47] LABS: HEMOGLOBIN A1c 5.1 % (4.0-6.0)
== END ==
LOC: M SFHCCLAY 09:59
PROVIDERS: ATTEND Nurse Practitioner Family
DX: K21.9 Gastro-esophageal reflux disease without esophagitis (principal); R03.1 Nonspecific low blood-pressure reading; A04.72 Enterocolitis due to Clostridium difficile, not specified as recurrent; R29.6 Repeated falls; Z79.899 Other long term (current) drug therapy

== ENCOUNTER → 2024-12-05 | Outpatient (REF) | payer MEDICARE, OTHER ==
[~2024-12-05] MED LIST changes: -FLOM0.4C39 PO; +TAMS-18 PO
[2024-12-05 17:19] LABS: ALBUMIN 3.6 G/DL (3.2-5.2); BILIRUBIN,TOTAL 0.5 MG/DL (0.3-1.2); CREATININE FOR GFR 0.93 MG/DL (0.55-1.30); GLOMERULAR FILTRATION RATE 59.1 (>32); MAGNESIUM LEVEL 1.8 MG/DL (1.8-2.4); POTASSIUM SERUM 4.6 MMOL/L (3.5-5.1); TOTAL PROTEIN 6.6 G/DL (5.7-8.2)
[2024-12-05 18:40] LABS: CHOLESTEROL RISK RATIO 2.78 (<5); HDL CHOLESTEROL 56.3 MG/DL (>40); LDL CHOLESTEROL 79.3 MG/DL (<100); NON-HDL-C 100.7 MG/DL
[2024-12-05 19:29] LABS: HEMOGLOBIN A1c 5.6 % (4.0-6.0)
== END ==
LOC: M SFHCCLAY 14:02
PROVIDERS: ATTEND Nurse Practitioner Family
DX: I50.9 Heart failure, unspecified (principal); E83.42 Hypomagnesemia; K21.9 Gastro-esophageal reflux disease without esophagitis; A04.72 Enterocolitis due to Clostridium difficile, not specified as recurrent; R29.6 Repeated falls; R03.1 Nonspecific low blood-pressure reading; Z79.899 Other long term (current) drug therapy

== ENCOUNTER → 2025-05-04 | Outpatient (REF) | payer MEDICARE, OTHER ==
[2025-05-04 18:23] LABS: BASO # 0.1 10^3/uL (0.0-0.2); BASO % 0.8 % (0.0-1.0); EOS # 0.2 10^3/uL (0.0-0.5); EOS % 2.0 % (0.0-3.0); LYMPH # 1.4 10^3/uL (1.5-5.0); LYMPH % 17.1 % (24.0-44.0); MONO # 0.6 10^3/uL (0.0-0.8); MONO % 7.0 % (2.0-8.0); NEUTROPHILS # 5.8 10^3/uL (1.5-8.5); NEUTROPHILS % 72.6 % (36.0-66.0); PLATELET COUNT, AUTOMATED 288 10^3/uL (150-450)
[2025-05-04 18:28] LABS: ALT/SGPT 14.0 U/L (7.0-40); AST/SGOT 12.0 U/L (<34); CALCIUM LEVEL 9.2 MG/DL (8.3-10.6); CARBON DIOXIDE LEVEL 28.0 MMOL/L (20-31); CHLORIDE LEVEL 104.0 MMOL/L (98-107); CREATININE FOR GFR 0.84 MG/DL (0.55-1.30); GLOMERULAR FILTRATION RATE 66.4 (>32); MAGNESIUM LEVEL 1.7 MG/DL (1.8-2.4); POTASSIUM SERUM 4.1 MMOL/L (3.5-5.1); SODIUM LEVEL 143.0 MMOL/L (136-145)
[2025-05-04 18:29] LABS: FREE T4 1.09 NG/DL (0.89-1.76)
== END ==
LOC: M SFHCCLAY 09:57
PROVIDERS: ATTEND Nurse Practitioner Family
DX: R53.1 Weakness (principal); R53.83 Other fatigue